=== PATIENT | male | born 1940 | race Caucasian/White ===

== ENCOUNTER → 2018-10-17 14:00 | Outpatient (CLI) | payer MEDICARE, SELFPAY ==
--- NOTE | 2018-10-17 14:03 | VDLE_ITS ---
Reason For Study: PAIN RIGHT LEFT CFV is compressible, spontaneous, phasic, CFV is compressible, spontaneous, phasic, competent and demonstrates normal competent, and demonstrates normal augmentation. augmentation. FV is compressible, spontaneous, phasic, FV is compressible, spontaneous, phasic, competent and demonstrates normal competent and demonstrates normal augmentation. augmentation. POP V is compressible, spontaneous, phasic, POP V is compressible, spontaneous, phasic, competent and demonstrates normal competent and demonstrates normal augmentation. augmentation. T/P Trunk is compressible. T/P Trunk is compressible. PTV is compressible. PTV is compressible. RT PerV is compressible. LT PerV is compressible. Rt GSV at SFJ is INCOMPETENT for greater Left GSV at SFJ is competent. than .5 sec. Left GSV above knee is compressible and RT GSV above knee is INCOMPETENT for greater competent. than .5 sec and measures .3 x .4 cm. Left GSV below knee is INCOMPETENT for greater RT Varicose V are INCOMPETENT for greater than .5 sec and measures .3 x .3 cm. than .5 sec. RT SSV is competent. RT GSV below knee has been stripped. RT Varicose/accessory V below the knee are RT SSV is INCOMPETENT for greater than .5 INCOMPETENT for greater than .5 sec. sec and measures .2 x .2 cm. RT Animal Daycare Provider located approx 10 cm from medial Procedure maleolus is INCOMPETENT for greater than .5 Exam performed in department. sec. Interpretation Summary 1. No DVT or SVT. 2, Right GSV 4mm and reflux into brnahces. 3. Right LSV 2mm reflux. 4. Left below knee GSV 3mm reflux into branches 5. Left calf steam room attendant reflux. Ordering Physician: Vadim Albright Referring Physician: JULIANA NORIEGA Performed By: Radha iPnk, RDCS, RVT
== END ==
PROVIDERS: Family Provider Internal Medicine; PCP Internal Medicine; Referring Provider Surgery Vascular Surgery; Visit Provider Surgery Vascular Surgery
DX: M79.89 Other specified soft tissue disorders (principal); M79.604 Pain in right leg; M79.605 Pain in left leg; L81.9 Disorder of pigmentation, unspecified; I83.93 Asymptomatic varicose veins of bilateral lower extremities; I87.2 Venous insufficiency (chronic) (peripheral)
CPT/HCPCS: 93970

== ENCOUNTER → 2018-10-31 14:52 | Outpatient (CLI) | payer MEDICARE, SELFPAY ==
[2018-10-22 11:38] VITALS: BMI 29.5
--- NOTE | 2018-10-31 14:57 | ECHOD_ITS ---
Reason For Study: AFIB.FLUTTER Procedure This was a 2D Doppler, Color Flow transthoracic echocardiogram. Exam performed in department. Left Ventricle Mildly dilated left ventricle. The estimated ejection fraction is 55 %. Stage 1 diastolic dysfunction. No regional wall motion abnormalities noted. Right Ventricle Normal size and thickness. Normal systolic function. Atria The left atrium is mildly enlarged. Normal right atrium. Normal atrial septum. Mitral Valve The mitral valve is structurally normal. No prolapse or stenosis seen. Mild (1+) mitral valve insufficiency. Tricuspid Valve Normal tricuspid valve. Trivial tricuspid valve insufficiency. Right ventricular systolic pressure estimated to be 41 mmHg. Mild pulmonary hypertension. Aortic Valve Trisinus/trileaflet aortic valve. Mild diffuse aortic valve thickening. Trivial aortic valve insufficiency. Pulmonic Valve Normal pulmonic valve. Trivial pulmonic valve insufficiency. Great Vessels Normal aortic root. Normal arch. Normal inferior vena cava. Inferior vena cava collapse with sniff. Pericardium/Pleural No pericardial effusion. MMode/2D Measurements & Calculations LVIDd: 5.7 cm IVSd: 1.0 cm Ao root diam: 3.5 cm LVIDs: 3.5 cm LVPWd: 0.96 cm RVDd: 3.4 cm FS: 38.4 % LAV(MOD-bp): 93.5 ml LA A4 area: 21.8 cm2 LA dimension(2D): 4.0 cm LAV(MOD-bp) Indexed: 39.7 ml/m2 LAV(MOD-sp2): 97.5 ml LAV(MOD-sp4): 72.6 ml RA A4 area: 19.8 cm2 Time Measurements MV dec time: 0.26 sec Doppler Measurements & Calculations MV E max sebastien: 84.4 cm/sec Lat Peak E' Sebastien: 8.3 cm/sec Med Peak E' Sebastien: 6.1 cm/sec MV A max sebastien: 98.7 cm/sec E/E' lat: 10.2 E/E' med: 13.8 MV E/A: 0.86 Ao V2 max: 127.8 cm/sec AI max sebastien: 382.4 cm/sec LV V1 max: 112.4 cm/sec Ao max P.5 mmHg AI max P.5 mmHg LV V1 max P.1 mmHg Ao V2 mean: 87.8 cm/sec AI dec slope: 141.3 cm/sec2 LV V1 mean P.5 mmHg Ao mean P.4 mmHg AI P1/2t: 792.4 msec LV V1 mean: 73.7 cm/sec Ao V2 VTI: 29.9 cm LV V1 VTI: 25.4 cm PA V2 max: 82.1 cm/sec TR max sebastien: 283.4 cm/sec TR max P.3 mmHg Interpretation Summary Mildly dilated left ventricle. The estimated ejection fraction is 55 %. Stage 1 diastolic dysfunction. The left atrium is mildly enlarged. Mild (1+) mitral valve insufficiency. Trivial tricuspid valve insufficiency. Right ventricular systolic pressure estimated to be 41 mmHg. Mild pulmonary hypertension. Trivial aortic valve insufficiency. Compared to echo report dated 01/12/2017, LV function is about the same, but RVSP has increased from 29 to 41 mm Hg,. Ordering Physician: Juan Chow Referring Physician: Oskar Leger Performed By: Trice Mckeon RDCS, RVT
== END ==
PROVIDERS: Family Provider Internal Medicine; PCP Internal Medicine; Referring Provider Internal Medicine Cardiovascular Disease; Visit Provider Internal Medicine Cardiovascular Disease
DX: I48.0 Paroxysmal atrial fibrillation (principal); R06.09 Other forms of dyspnea
CPT/HCPCS: 93306

== ENCOUNTER → 2018-11-07 10:23 | Outpatient (CLI) | payer MEDICARE, SELFPAY ==
[2018-10-22 11:38] VITALS: BMI 29.5
--- NOTE | 2018-11-07 10:25 | STEWCON_ITS ---
Reason For Study: DYSPNEA/SOB Stress Results Protocol: Chi Protocol WITH DEFINITY Maximum Predicted HR: 142 bpm Target HR: 121 bpm % Maximum Predicted HR: 108 % DurationHeart Rate Stage (mm:ss) (bpm) BP Comment Baseline 54 150/882.5 CC DEFINITY STAGE 1 3:00 118 170/62 STAGE 2 3:00 153 190/501.5 CC DEFINITY, SOB, KNEE DISCOMFORT, RECOVERY 83 142/741 CC DEFINITY Stress Duration: 6:00 mm:ss Maximum Stress HR: 153 bpm Baseline Echocardiogram Findings The estimated ejection fraction is 65 %. Stress Echo Wall motion Data Resting WM Intermediate WM Stress WM Resting Wall Motion Wall Motion Stress No regional wall motion Anterio-Basal: Mildly abnormalities noted. hypokinetic. Basal anteroseptal: Mildly hypokinetic. Mid-anteroseptal : Mildly hypokinetic. EKG Data The baseline ECG displays normal sinus rhythm. The patient exercised according to the regular Chi protocol for a total duration of 6:00. The maximum heart rate attained was 181 beats per minute. This was 127% of maximum predicted heart rate. The patient exercised into stage 3 of the Chi protocol. During stress, there were no ST or T wave changes noted to suggest ischemia. No clinical angina was noted. Interpretation Summary The estimated ejection fraction is 65 %. Abnormal, adequate, treadmill echocardiogram. Positive for ischemia by echocardiographic criteria. No anginal symptoms noted. Frequent PACs and rare PVCs during exercise. Appropriate blood pressure response to exercise. Average exercise capacity for age. Patient appeared to develop mid anteroseptal hypokinesis seen in the parasternal long and apical four-chamber views. Poor echo windows requiring Definity agent. Final LVEF of 55%. Test terminated due to dyspnea, target heart rate achieved, and leg discomfort. No complications. The study was technically difficult. Contrast injection was performed. Ordering Physician: Juan Chow Referring Physician: Juan Chow Performed By: Israel Rasmussen RCS
== END ==
PROVIDERS: Family Provider Internal Medicine; PCP Internal Medicine; Referring Provider Internal Medicine Cardiovascular Disease; Visit Provider Internal Medicine Cardiovascular Disease
DX: R06.09 Other forms of dyspnea (principal); R53.83 Other fatigue; I48.0 Paroxysmal atrial fibrillation
CPT/HCPCS: 93017; 93350; Q9957; A4216; C8928

== ENCOUNTER → 2018-11-12 | Outpatient (CLI) | payer MEDICARE, SELFPAY ==
[2018-10-22 11:38] VITALS: BMI 29.5
[2018-11-12 10:04] LABS: Hematocrit 40.6 % (40-54); Hemoglobin 13.3 g/dl (13.0-16.5); Mean Corp Hgb Conc 32.8 g/gl (32-36); Mean Corpuscular Hgb 30.5 pg (27.0-32.0); Mean Corpuscular Volume 93.1 fL (80-94); Mean Platelet Vol. 8.7 fl (6.2-12.0); Platelet Count 142 K/mm3 (150-450); RBC Distribution Width CV 12.8 % (11.6-14.6); RBC Distribution Width SD 43.4 fl (35.1-43.9); Red Blood Count 4.36 M/mm3 (4.6-6.2); White Blood Count 6.5 K/mm3 (4.4-11.0)
[2018-11-12 10:08] LABS: Scan Indicated on CBC? Y/N NO
[2018-11-12 10:10] LABS: Partial Thromboplast Time 34.5 Seconds (24.1-36.2); Prothrombin Time (Protime)PT. 22.2 SECONDS (11.7-14.9)
[2018-11-12 10:27] LABS: Anion Gap 7 (5-15); BUN 23 mg/dL (7-18); BUN/Creat Ratio 14.2 RATIO (10-20); Calcium,Total 9.1 mg/dL (8.5-10.1); Chloride 104 mmol/L (98-107); Creatinine, Serum 1.62 mg/dL (0.70-1.30); EST Glomerular Filtration Rate 44 mL/min (>60); Est Glom Filt Rate - Afr Amer 53 mL/min (>60); Glucose 105 mg/dL (74-106); Potassium 5.2 mmol/L (3.5-5.1); Sodium Level 143 mmol/L (136-145)
== END | disposition home or self-care (01) ==
LOC: LAB 09:23
PROVIDERS: Family Provider Internal Medicine; PCP Internal Medicine; Referring Provider Internal Medicine Cardiovascular Disease; Visit Provider Internal Medicine Cardiovascular Disease
DX: I48.0 Paroxysmal atrial fibrillation (principal); I34.0 Nonrheumatic mitral (valve) insufficiency; R94.39 Abnormal result of other cardiovascular function study; Z79.01 Long term (current) use of anticoagulants
CPT/HCPCS: 36415; 80048; 85027; 85610; 85730

== ENCOUNTER 2018-11-14 07:08 | Day surgery (SDC) | payer MEDICARE, SELFPAY ==
[2018-10-22 11:38] VITALS: BMI 29.5
--- NOTE | 2018-10-22 11:52 | HP_ITS ---
HPI HPI History of Present Illness Surgical H&P: No Details: Chief Complaint: Routine f/u Details: Mr. Leung is a very pleasant 77-year-old nondiabetic hypertensive gentleman with a history of paroxysmal atrial fibrillation was previously on Coumadin therapy until around January of 2011 when he suffered a subdural hematoma after falling off a ladder and hitting his head. The patient went to [facility] remained for several days but did not require evacuation surgery. He remained off Coumadin up until around one year ago when his primary clerical grader Dr. Gorman resumed it out of concern for his chads/vasc score. He has remained on Coumadin without any difficulty. His last stress test was 04/08/13 at which time he had a near maximal stress test, had no chest pain symptoms, and his nuclear imaging was felt to be negative for inducible ischemia. He has never had a catheterization. The patient is a lifelong nonsmoker and nondrinker, and denies any exertional chest pain, angina, shortness of breath. He does have obstructive sleep apnea and uses his CPAP religiously. 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 Patient had a venous ultrasound last week, and is going to follow-up with Dr. Albright. Patient recently returned from [place], and did well down there, but since coming back is apparently had an upper respiratory tract infection requiring visit to an urgent clinic recently. According to his he has had decreased energy level over the last 2 weeks, and even preceding his upper respiratory tract infection. She states that he is sleeping several times during the day and has much lower energy since her last visit. In our office today his blood pressure is 130/66, and pulse is 58 and regular. His physical exam demonstrates regular rate and rhythm, normal S1/S2, no S3 or S4. He has no edema. His lipids are pending. EKG dated 11/19/16 showed normal PACs, no evidence of previous myocardial infarction. Echocardiogram dated 04/11/12 showed an EF of 60%, and RVSP of 39 mmHg, 1+ MR and TR. Repeat echo dated 01/12/17 showed an EF of 65%, RVSP of 29 mmHg, and 1+ mitral regurgitation. Repeat lipids are pending. EKG on a previous visit demonstrates normal sinus rhythm with frequent PACs, no atrial fibrillation noted. Intake Vital Signs 10/22/18 Height 6 ft 3 in 10/22/18 Weight: 236 lb 10/22/18 Body Mass Index (BMI) 29.5 10/22/18 Blood Pressure 130/70 H 10/22/18 Blood Pressure Location Lt brachial 10/22/18 Blood Pressure Position Sitting 10/22/18 Respiratory Rate 20 H 10/22/18 Pulse Rate 60 10/22/18 Pulse Source Auscultation Intake Visit Reasons: 7 M Activated Sludge Attendant Required: No Accompanied by: Is patient in pain?: No Allergies levofloxacin [From Levaquin] Allergy (Verified 10/22/18 11:39) Rash midazolam [From Versed] Allergy (Verified 10/22/18 11:39) Other Penicillins Allergy (Verified 10/22/18 11:39) Unknown iopromide [From Ultravist] Adverse Reaction (Verified 10/22/18 11:39) Unknown Medications multivitamin tablet 1 tab PO QDAY 10/20/17 [History Confirmed 10/22/18] atenolol 25 mg tablet 25 mg PO DAILY #90 tab 07/26/18 [Rx Confirmed 10/22/18] warfarin 2 mg tablet 2 mg PO .COMPLEX #90 tab 10/22/18 [Rx Confirmed 10/22/18] warfarin 4 mg tablet 4 mg PO .COMPLEX #90 tab 10/22/18 [Rx Confirmed 10/22/18] [facility] Medical History SVT (supraventricular tachycardia) (Chronic) Nonrheumatic mitral valve regurgitation (Chronic) long-term current use of anticoagulant (Chronic) PAF (paroxysmal atrial fibrillation) (Chronic) Overweight (BMI 25.0-29.9) (Chronic) YAJAIRA (obstructive sleep apnea) (Chronic) Adrenal adenoma (Chronic) BPH (benign prostatic hyperplasia) (Chronic) Benign neoplasm (Chronic) Diverticulitis (Chronic) History of subdural hematoma (Chronic) Nontoxic uninodular goiter (Chronic) Thrombocytopenia (Chronic) 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 CXR=no pneumonia); negative for body ache, fever(s), headache(s), chills, frequent falls, night sweats, daytime sleepiness, difficulty sleeping, excessive sweating, weight gain, weight loss, increased appetite, poor appetite or anorexia Eyes Eyes: Negative for blind spots, loss of peripheral vision, transient loss of vision, blurry vision, change in vision, double vision, floaters, tunnel vision or other ENT ENT: Negative for headache(s), dizziness, hearing loss, tinnitus, Nosebleed/epistaxis, balance problems, post nasal drip, lip swelling, tongue swelling, bleeding gums, hoarseness, neck pain, dry mouth or other Cardio Chest Pain: No Palpitations: No Edema: Bilateral (chronic, wears support stockings. Sees Dr. Albright, venous insufficiency) Muscle aches with walking: None Resp Respiratory: Negative for SOB with activity, SOB at rest, SOB orthopnea\SOB lying down, Cough, Coughing up blood/hemoptysis, chest congestion, pain on inspiration, snoring, stridor, wheezing, crackles, paroxysmal nocturnal dyspnea or other GI GI: Negative nausea, vomiting, heartburn, constipation, belching, bloating, cramping, vomiting blood/hematemesis, bright, red blood in stools, black,tarry stools, loose stools, Difficulty Swallowing or other : Negative for hematuria, frequent nighttime urination/ nocturia, erectile dysfunction or abnormal vaginal bleeding Musc Musc: Negative for muscle aches/ myalgia, muscle weakness, joint pain or balance problems Skin Skin: Negative redness, non-healing lesions, rash, unusual bruising, skin ulcer, wounds, jaundice or other Neuro Neuro: Positive for weakness; negative for dizziness, lightheadedness, near syncope, syncope, orthostatic symptoms, frequent falls, headache(s), confusion, memory loss, restless legs, blurry vision, double vision, vertigo, seizures, lack of coordination or other Sanjay Hematologic/Lymphatic: Negative for easy bleeding, easy bruising, enlarged lymph nodes or other Endo Endo: Positive for fatigue; negative for cold intolerance, heat intolerance, excessive sweating, flushing, increased thirst/drinking, increased hunger, hair loss, hair growth or other Psych Psych: Negative for anxiety, depression, thoughts of harming anyone, thoughts of harming yourself, visual hallucinations, panic attacks or audible hallucinations Allergy Allergy/Immunology: Negative for throat swelling, Negative for tongue swelling, Negative for hives, Negative for rash, Negative for lip swelling Cardiology Exam Const Appearance: cooperative, healthy appearing and no acute distress Nutritional Appearance: well nourished Orientation: alert, oriented x3 and oriented to person Head Head: normal to inspection, normocephalic and atraumatic Nose: external nose normal Face and Sinus: face symmetric Mouth: oral mucosae normal Eyes General: appearance normal, both eyes and all related structures Eyelids: eyelids normal Conjunctivae: conjunctivae normal Pupils: PERRL and normal by confrontation EOM: EOM intact bilaterally Neck Neck: normal visual inspection and full ROM Carotids: normal carotid upstroke Chest Chest inspection: normal inspection of the chest Auscultation: Bilateral: Clear to Auscultation Cardio Palpation: normal PMI Rate: regular rate Rhythm: regular rhythm Heart sounds: S1 normal and S2 normal GI GI: normal to inspection, no hepatosplenomegaly and bowel sounds present Neuro General: alert, awake, oriented x3, CN's II-XI intact bilaterally and moves all extremities Skin Skin: no rashes or lesions noted Extremities Pulses: Normal: Right Femoral Pulse, Left Femoral Pulse, Right Dorsalis Pedis Pulse, Left Dorsalis Pedis Pulse, Right Posterior Tibial Pulse, Left Posterior Tibial Pulse, Right Radial Pulse, Left Radial Pulse Lower Extremity Edema: None: Bilateral Psych Psychological: normal affect Assessment & Plan 1. PAF (paroxysmal atrial fibrillation) I48.0 Plan 1. Paroxysmal atrial fibrillation: Patient denies any paroxysmal atrial fibrillation and is aware of when he is in and out of it. He is compliant with his medications as well as his Coumadin. Is compliant with his CPAP as well. Recommend he continue his atenolol and his Coumadin. 2. Fatigue R53.83 Plan 2. Fatigue: According to the patient's he has had decreased energy level, increasing fatigue, and increasing shortness of breath over the last several weeks. As part of his cardiac surveillance, as well as in light of the symptoms, I recommended he undergo a repeat 2D echo with Doppler to determine if he is at any worsening LV function, or pulmonary pressures as a result of his sleep apnea. In addition I recommended he undergo a treadmill echocardiogram to compare previous stress test for exercise capacity, blood pressure response exercise, and ischemia. If either 1 of these are grossly abnormal, may require a diagnostic coronary angiogram. 3. Return office in 6 months. This note was generated using a voice recognition system and there may be incorrect words, spelling or punctuation that were not noted when reviewing the office note prior to saving. Plan Detail Other Medications New: warfarin 2 mg PO daily except on Monday take a 4 mg tablet; 90 tabs 3RF Changed: From: warfarin 4 mg PO 1 tablet on Saturdays; take 0.5 tablet (2mg) all other days of the week. 90 tabs 3RF To: warfarin 4 mg PO 1 tablet on Saturdays; take a 2 mg tablet all other days of the week. 90 tabs 3RF Follow Up +6M (Geraldo) Coding Level of Care Code Off vis,est,level 3 Diagnoses PAF (paroxysmal atrial fibrillation) I48.0 Fatigue R53.83 Coding Level of Care Code Off vis,est,level 3 Diagnoses PAF (paroxysmal atrial fibrillation) I48.0 Fatigue R53.83 Supplemental Info Supplemental Information Diagnostics Electrocardiogram 10/23/17 Chest X-Ray 11/19/16 10/22/18 0792 <Electronically signed by Juan Chow MD> Date Juan Chow MD
[2018-11-12 10:24] VITALS: BMI 29.5
[2018-11-13 10:01] VITALS: BMI 29.5
[2018-11-14 07:21] LABS: Prothrombin Time Fingerstick 15.5 SEC (11.9-14.4)
--- NOTE | 2018-11-14 10:57 | CL.D_ITS ---
Patient Name: RJ REYNOLDS Study Date: 11/14/2018 Performing: Juan Chow MD Ht: 75.19 inches 191 cm : 1940 Wt: 235.89 lbs 107 kg Age: 78 Gender: male BSA: 2.36 PROCEDURE(S) PERFORMED [id number]-IPV/COR/LV CLINICAL PROFILE AND INDICATIONS Indications: Suspected CAD Heart Failure: None Stress/Imaging Date: 11/07/2018Stress Echocardiogram: Positive Low Risk Angina Classification Anginal Classification w/in 2 Weeks: No symptoms CAD Presentations: Other: Dyspnea on exertion, HTN Comorbidities/Risk Factors: Hypertension Dyslipidemia Cerebrovascular Disease CONCLUSIONS Normal coronary arteries Normal LV size, wall motion,and systolic function LVEF: by LV gram 65 % Normal LV size, wall motion,and systolic function Elevated Left Ventricular End Diastolic Pressure RECOMMENDATIONS D/c plavix and aspirin; start imdur 30mg po daily. Management as per referring Community Development Coordinator DESCRIPTION OF PROCEDURE The patient arrived to the procedure lab. The risks and benefits of the procedure as well as a full d escription of our services here and current unavailability of surgical backup were fully explained to the patient and/or their significant other prior to the catheterization. The Timeout was completed, verifying the correct patient and procedure. The patient's procedural site was prepped and draped in the usual fashion. Local anesthetic was given subcutaneously to right groin region with Lidocaine 2%. Using a modified Seldinger technique, arterial access was obtained via the right femoral artery, a 4 Fr sheath was inserted Left Coronary Artery selective angiography was performed in multiple views us ing a 4 Fr. JL5 catheter. Right Coronary Artery selective angiography was then performed in multiple views using a 4 Fr. 3DRC catheter. Left Ventriculography was performed in COLE projection using a 4 Fr . Pigtail catheter. LV to AO pullback pressures were then recorded.The arterial sheath was pulled and manual compression applied until hemostasis is achieved. CORONARY ANGIOGRAPHY DOMINANCE: Right Dominant LEFT HEART ASSESSMENT Left Ventricular Ejection Fraction: by LV Gram 65 % Normal LV wall motion Normal Left Ventricular systolic function Normal Left Ventricular systolic function Elevated Left Ventricular End Diastolic Pressure LEFT MAIN: Angiographically normal, Angiographically normal LEFT ANTERIOR DESCENDING ARTERY: Angiographically normal, Angiographically normal CIRCUMFLEX ARTERY: Angiographically normal, Angiographically normal RIGHT CORONARY ARTERY: Angiographically normal Angiographically normal COMPLICATIONS No Complications PROCEDURE MEDICATIONS Fentanyl 25 mcg IV Oxygen: 2 L/min via nasal cannula Benadryl 25 mg IV @ 11/14/2018 10:24:12 Nitro 300 mcg IC 11/14/2018 10:43:50 Nitro Paste 1 in- Lt arm 11/14/2018 10:47:11 Solu-cortef 100 mg IV 11/14/2018 10:23:58 IV Fluids: .9 NaCl IV started @ 150 ml/hr 11/14/2018 07:38:18 SUMMARY OF HEMODYNAMIC DATA Time AIR REST ECG 07:30:28 AO 159/80 (115) SA 10:37:51 LV 189/-17, 18 10:43:06 LV 183/-20, 23 10:43:12 LVp 182/-19, 21 10:43:19 AOp 180/74 (118) 10:43:24 Signed By Juan Chow MD On 11/14/2018 10:56:40 Juan Chow MD
== END 2018-11-14 15:15 | disposition home or self-care (01) ==
LOC: CLSP 07:10
PROVIDERS: Family Provider Internal Medicine; PCP Internal Medicine; Referring Provider Internal Medicine Cardiovascular Disease; Visit Provider Internal Medicine Cardiovascular Disease
DX: I48.0 Paroxysmal atrial fibrillation (principal); R53.83 Other fatigue; E78.5 Hyperlipidemia, unspecified; I10 Essential (primary) hypertension; G47.33 Obstructive sleep apnea (adult) (pediatric); Z79.01 Long term (current) use of anticoagulants; Z88.0 Allergy status to penicillin; Z88.1 Allergy status to other antibiotic agents; I47.1 Supraventricular tachycardia; N40.0 Benign prostatic hyperplasia without lower urinary tract symptoms; D69.6 Thrombocytopenia, unspecified; I83.93 Asymptomatic varicose veins of bilateral lower extremities; I34.0 Nonrheumatic mitral (valve) insufficiency
CPT/HCPCS: 36416; 85610; 93458; 99152; J7040; Q9967; C1769; C1894

== ENCOUNTER → 2019-03-04 11:13 | Outpatient (CLI) | payer MEDICARE, SELFPAY ==
[2019-02-01 14:38] VITALS: BMI 29.5
--- NOTE | 2019-03-04 11:18 | US_ITS ---
STUDY: RENAL ULTRASOUND - COMPLETE REASON FOR EXAM: Male, 78 years old. Stage III chronic kidney disease TECHNIQUE: Ultrasound evaluation of the kidneys was performed with real-time and static mina-scale imaging. COMPARISON: None. FINDINGS: RIGHT KIDNEY: Normal location of the right kidney, which is normal in size. The right kidney measures 10.5 x 4.6 x 5.1 cm. There is a normal cortex of the right kidney. The renal cortex measures 1.0 cm. There is no right renal mass or cyst. There are no right renal calculi. There is no right hydronephrosis. DISTAL RIGHT URETER: There is non-visualization of the distal right ureter. There is no demonstrated right ureterovesical junction calculus. There is no demonstrated right ureteral jet. LEFT KIDNEY: Normal location of the left kidney, which is normal in size. The left kidney measures 9.9 x 5.5 x 4.7 cm. There is a normal cortex of the left kidney. The renal cortex measures 1.1 cm. There is no left renal mass or cyst. There are no left renal calculi. There is no left hydronephrosis. DISTAL LEFT URETER: There is non-visualization of the distal left ureter. There is no demonstrated left ureterovesical junction calculus. There is no demonstrated left ureteral jet. BLADDER: The distended urinary bladder has a volume of 75 ml. . There is a normal wall thickness of the distended urinary bladder. Bladder wall thickness is 6 mm. There is no demonstrated mass within the urinary bladder. There are no demonstrated bladder calculi. US/Kidney and Bladder IMPRESSION: Normal ultrasound of the kidneys and urinary bladder. Electronically Signed: Chin Brito MD at 17:46 EDT , Service support ,
== END ==
PROVIDERS: Family Provider Internal Medicine; PCP Internal Medicine; Referring Provider Internal Medicine Nephrology; Visit Provider Internal Medicine Nephrology
DX: N18.3 Chronic kidney disease, stage 3 (moderate) (principal)
CPT/HCPCS: 76770

== ENCOUNTER 2019-12-08 17:05 | Emergency (ER) | payer MEDICARE, SELFPAY ==
[2019-04-15 09:35] VITALS: BMI 29.2
[2019-12-08 17:07] VITALS: BP 138/112; PULSE 68; RESP 16; TEMP 36.9; O2SAT 95
--- NOTE | 2019-12-08 17:14 | EKG12_ITS ---
Test Reason : PALPS Blood Pressure : / mmHG Vent. Rate : 109 BPM Atrial Rate : 104 BPM P-R Int : 000 ms QRS Dur : 080 ms QT Int : 278 ms P-R-T Axes : 000 030 059 degrees QTc Int : 374 ms Atrial fibrillation with rapid ventricular response with premature ventricular or aberrantly conducte d complexes Nonspecific ST abnormality Abnormal ECG Confirmed by NBA MONTALVO ([id number]), news assignment editor VIK BEAL ([id number]) on 12/12/2019 1:30:03 PM Referred By: MADHAVI Confirmed By:NBA MONTALVO
[2019-12-08 17:23] VITALS: BP 162/90; PULSE 103; RESP 17
--- NOTE | 2019-12-08 17:23 | ED.VIS.GEN ---
History of Present Illness Chief Complaint: Palpitations Detail of Chief Complaint: Irregular heartbeat Informant: Patient, Family Onset: Hours - 1600 Context: Sudden Onset Timing: Continuous Quality: Complications irregular heartbeat Location: Chest Current Severity: Mild Maximum Severity: Mild Worsened by: Nothing Relieved by: Nothing Associated Symptoms: No other symptoms Narrative: Patient is 79-year-old male with history of atrial fibrillation on Coumadin. He is on Coumadin because he had a traumatic subdural hematoma. This occurred 2010. He reports leg swelling that is a chronic issue since 1969. He wears compressive stocking/hose. He denies chest pain. He denies dyspnea or dyspnea on exertion. He denies orthopnea PND. He denies black or maroon-colored stool. He has no other complaints. His gave him an additional half tablet of atenolol. He has not eaten in the last several hours. States he is never been cardioverted. 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 (2) Nonrheumatic mitral valve regurgitation Status: Chronic (3) YAJAIRA (obstructive sleep apnea) Status: Chronic (4) PAF (paroxysmal atrial fibrillation) Status: Chronic (5) SVT (supraventricular tachycardia) Status: Chronic Past Medical History - Allergies and Home Meds Allergies/Adverse Reactions: Allergies Iodinated Contrast Media [Iodinated Contrast- Oral and IV Dye] Allergy (Intermediate, Verified 12/08/19 17:07) states had a cough with Iopromide ( Isovue/cath dye) levofloxacin [From Levaquin] Allergy (Verified 12/08/19 17:07) Rash midazolam [From Versed] Allergy (Verified 12/08/19 17:07) Other Penicillins Allergy (Verified 12/08/19 17:07) Unknown Primary Care Physician: Oskar Leger MD [Primary Care Provider] - Prior records reviewed: Yes Surgical History: tonsillectomy, - - RLE vein stripping. Lives: Spouse/ Significant Other Smoking Status: Never smoker Alcohol: None Drugs: None - Family History Maternal Family History: Family History (Last Reviewed 04/15/19 @ 10:10 by PHUONG Jeter) Father Hypertension Cardiomyopathy Family History: Reports: - - Thyroid disease (goiter) Paternal Family History: Family History (Last Reviewed 04/15/19 @ 10:10 by PHUONG Jeter) Father Hypertension Cardiomyopathy Family History: Reports: Heart Disease, Hypertension Review of Systems General: Denies: Chills, Fever, Sweats Eyes: Denies: Visual changes - bilaterally, Blurred Vision - bilaterally ENT: Denies: Rhinorrhea, Sore throat Cardiovascular: Reports: Palpitations. Denies: Chest pain, Heart racing, -, - Respiratory: Denies: Dyspnea, Cough, Sputum, Dyspnea on exertion, Orthopnea, Paroxysmal nocturnal dyspnea, -, - Gastrointestinal: Denies: Abdominal pain, Nausea, Vomiting, Diarrhea, Melena, Hematochezia Musculoskeletal: Reports: Swelling. Denies: Myalgias, Arthralgias, Neck pain, Back pain, Extremity Pain, -, - Skin: Denies: Rash, Wounds Neurological: Denies: Headache, Weakness, Parasthesia Hematologic: Reports: Easy bruising. Denies: Easy bleeding Allergy: Denies: Uticaria Physical Exam Vital Signs/Narrative: Vital Signs Temp Pulse Resp BP Pulse Ox 12/08/19 17:07 98.5 F 68 16 138/112 H 95 Inital Vital Signs reviewed: Yes General: Well nourished, Well developed, No Acute Distress Head: Normocephalic, Atraumatic Eyes: Perrl, EOMI. Negative for: Pale conjunctiva, Scleral icterus ENT: Moist mucous membranes, No rhinorrhea Neck: Supple, Nontender, No lymphadenopathy, No JVD Cardiovascular: Irregular, Tachycardia, Murmur Back: Nontender, Normal Inspection Extremities: Nontender, Edema Skin: Normal color, No rash Neurological: Alert, Oriented x3, Cranial nerves II-XII grossly intact, Normal Strength, Normal Sensation Psychological: Normal affect, Normal Mood Diagnostic/Tx/Re-eval Laboratory Results 12/08/19 12/08/19 12/08/19 17:25 17:25 17:25 WBC 6.9 RBC 3.98 L Hgb 12.4 L Hct 38.3 L MCV 96.2 H MCH 31.2 MCHC 32.4 RDW Std Deviation 45.5 H RDW Coeff of Jan 12.9 Plt Count 146 L MPV 8.6 PT 28.3 H INR 2.7 Sodium 141 Potassium 4.8 Chloride 108 H Carbon Dioxide 28.0 Anion Gap 5 BUN 29 H Creatinine 1.96 H Estim Creat Clear Calc 35.53 Est GFR (MDRD) Af Amer 43 L Est GFR (MDRD) Non-Af 35 L BUN/Creatinine Ratio 14.8 Glucose 111 H Calcium 8.8 Work-up is unremarkable other than elevated creatinine of 1.96. November 12, 2018 creatinine is 1.62. INR is 2.7. Patient was reassessed. Heart rate is varied between 89-95. He is still in A. fib. Since he is never been cardioverted in the past and is converted on his own will discharge to home to follow-up with Dr. 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 - Rhythm Strip Rhythm Strip: A-fib Rate: 118 - EKG Initial EKG Interpretation: Atrial Fibrillation - Fibrillation with a ventricular rate of 109. QRS duration 80 ms. QT duration 278 ms. [place] is normal. There is no acute ischemic changes. There is nonspecific ST-T wave changes noted. Last EKG on record at [facility] revealed a sinus tachycardia with a rate of 106, November 19, 2016. - Medical Decision Making was obtained to rule out a cardiac ischemia. CBC to assess H&H. Basic metabolic panel to assess electrolytes and specifically potassium and sodium. PT/INR was obtained since patient is on Coumadin. Since give him additional dose of beta-russell will observe. ED Disposition - Plan for ED Patient: Disposition: Home or Assisted Living Diagnosis: Atrial fibrillation with RVR Instructions: ED AFIB Referrals: Oskar Leger MD [Primary Care Provider] - Juan Chow MD [STAFF PHYSICIAN] - 5-7 Days
[2019-12-08 17:31] LABS: Hematocrit 38.3 % (40-54); Hemoglobin 12.4 g/dL (13.0-16.5); Mean Corp Hgb Conc 32.4 g/dL (32-36); Mean Corpuscular Hgb 31.2 pg (27.0-32.0); Mean Corpuscular Volume 96.2 fL (80-94); Mean Platelet Vol. 8.6 fl (6.2-12.0); Platelet Count 146 K/mm3 (150-450); RBC Distribution Width CV 12.9 % (11.6-14.6); RBC Distribution Width SD 45.5 fl (35.1-43.9); Red Blood Count 3.98 M/mm3 (4.6-6.2); White Blood Count 6.9 K/mm3 (4.4-11.0)
[2019-12-08 17:38] LABS: International Normalized Ratio 2.7; Prothrombin Time (Protime)PT. 28.3 SECONDS (11.7-14.9)
[2019-12-08 17:42] LABS: Anion Gap 5 (5-15); BUN 29 mg/dL (7-18); BUN/Creat Ratio 14.8 RATIO (10-20); Calcium,Total 8.8 mg/dL (8.5-10.1); Chloride 108 mmol/L (98-107); Creatinine, Serum 1.96 mg/dL (0.70-1.30); EST Glomerular Filtration Rate 35 mL/min (>60); Est Glom Filt Rate - Afr Amer 43 mL/min (>60); Estimated Creatinine Clearance 35.53 ml/min; Glucose 111 mg/dL (74-106); Potassium 4.8 mmol/L (3.5-5.1); Sodium Level 141 mmol/L (136-145)
[2019-12-08 18:25] VITALS: BP 157/83; PULSE 63; RESP 18; O2SAT 96
== END 2019-12-08 18:28 | disposition home or self-care (01) ==
PROVIDERS: Emergency Provider Emergency Medicine; PCP Internal Medicine
DX: I48.0 Paroxysmal atrial fibrillation (principal); Z79.01 Long term (current) use of anticoagulants
CPT/HCPCS: 80048; 85027; 85610; 93005; 99285

== ENCOUNTER → 2019-12-31 14:49 | Outpatient (CLI) | payer MEDICARE, SELFPAY ==
[2019-12-17 11:22] VITALS: BMI 28.5
--- NOTE | 2019-12-31 14:49 | ECHOD_ITS ---
Reason For Study: Afib Procedure This was a 2D Doppler, Color Flow transthoracic echocardiogram. Exam performed in department. Left Ventricle Mildly dilated left ventricle. The estimated ejection fraction is 65 %. Stage 1 diastolic dysfunction. No regional wall motion abnormalities noted. Right Ventricle Mildly dilated right ventricle. Normal systolic function. Atria The left atrium is mildly enlarged. Normal right atrium. Normal atrial septum. Mitral Valve The mitral valve is structurally normal. No prolapse or stenosis seen. Mild (1+) mitral valve insufficiency. Tricuspid Valve Normal tricuspid valve. Trivial tricuspid valve insufficiency. Right ventricular systolic pressure estimated to be 31 mmHg. Aortic Valve Trisinus/trileaflet aortic valve. Trivial aortic valve insufficiency. Pulmonic Valve The pulmonic valve is not well visualized. Great Vessels Normal aortic root. Mild atherosclerosis of the aortic arch. Normal inferior vena cava. Inferior vena cava collapse with sniff. Pericardium/Pleural No pericardial effusion. MMode/2D Measurements & Calculations LVIDd: 5.2 cm IVSd: 1.1 cm Ao root diam: 3.7 cm LVIDs: 3.7 cm LVPWd: 1.1 cm LA dimension: 4.9 cm RVDd: 3.8 cm FS: 29.4 % LAV(MOD-bp): 73.2 ml LA A4 area: 26.1 cm2 RA A4 area: 18.8 cm2 LAV(MOD-bp) Indexed: 31.8 ml/m2 LAV(MOD-sp2): 60.9 ml LAV(MOD-sp4): 89.8 ml Time Measurements MV dec time: 0.26 sec Doppler Measurements & Calculations MV E max sebastien: 98.7 cm/sec Lat Peak E' Sebastien: 8.8 cm/sec Med Peak E' Sebastien: 6.3 cm/sec MV A max sebastien: 108.9 cm/sec E/E' lat: 11.2 E/E' med: 15.8 MV E/A: 0.91 MV V2 max: 105.7 cm/sec MV P1/2t max sebastien: 96.5 cm/sec Ao V2 max: 172.9 cm/sec MV max P.5 mmHg MV P1/2t: 100.8 msec Ao max P.0 mmHg MV V2 mean: 47.5 cm/sec MV dec slope: 280.5 cm/sec2 Ao V2 mean: 118.9 cm/sec MV mean P.2 mmHg MVA(P1/2t): 2.2 cm2 Ao mean P.3 mmHg MV V2 VTI: 42.4 cm Ao V2 VTI: 38.8 cm AI max sebastien: 390.3 cm/sec LV V1 max: 153.1 cm/sec PA V2 max: 83.8 cm/sec AI max P.9 mmHg LV V1 max P.4 mmHg LV V1 mean P.4 mmHg AI dec slope: 228.4 cm/sec2 LV V1 mean: 97.2 cm/sec AI P1/2t: 500.6 msec LV V1 VTI: 33.3 cm TR max sebastien: 253.3 cm/sec TR max P.7 mmHg Interpretation Summary Mildly dilated left ventricle. The estimated ejection fraction is 65 %. Stage 1 diastolic dysfunction. Mildly dilated right ventricle. The left atrium is mildly enlarged. Mild (1+) mitral valve insufficiency. Trivial tricuspid valve insufficiency. Right ventricular systolic pressure estimated to be 31 mmHg. Trivial aortic valve insufficiency. Compared to echo report dated 10/31/2018, LV function has remained the same, and RVSP has improved from 41 to 31 mm Hg. Ordering Physician: Juan Chow Referring Physician: Juan Chow Performed By: Israel Rasmussen RCS
== END ==
PROVIDERS: PCP Internal Medicine; Referring Provider Internal Medicine Cardiovascular Disease; Visit Provider Internal Medicine Cardiovascular Disease
DX: R94.31 Abnormal electrocardiogram [ECG] [EKG] (principal); I48.91 Unspecified atrial fibrillation; I48.92 Unspecified atrial flutter; Z98.890 Other specified postprocedural states
CPT/HCPCS: 93306

== ENCOUNTER → 2022-11-15 | Outpatient (CLI) | payer MEDICARE, SELFPAY ==
[2022-11-15 11:02] LABS: Albumin, Serum 3.4 g/dL (3.2-5.0); BUN 31 mg/dL (7-18); BUN/Creat Ratio 14.6 RATIO (10-20); Calcium,Total 9.1 mg/dL (8.5-10.1); Chloride 110 mmol/L (98-107); Creatinine, Serum 2.12 mg/dL (0.70-1.30); EST Glomerular Filtration Rate 32 mL/min (>60); Est Glom Filt Rate - Afr Amer 39 mL/min (>60); Glucose 106 mg/dL (74-106); Phosphorus 2.4 mg/dL (2.5-4.9); Potassium 4.3 mmol/L (3.5-5.1); Sodium Level 140 mmol/L (136-145)
== END | disposition home or self-care (01) ==
LOC: LAB 10:09
PROVIDERS: PCP Internal Medicine; Referring Provider Internal Medicine Nephrology; Visit Provider Internal Medicine Nephrology
DX: N17.9 Acute kidney failure, unspecified (principal); N18.9 Chronic kidney disease, unspecified
CPT/HCPCS: 36415; 80069

== ENCOUNTER → 2023-12-21 | Outpatient (CLI) | payer MEDICARE, SELFPAY ==
[2023-12-21 12:27] LABS: Hematocrit 36.6 % (40-54); Hemoglobin 11.7 g/dL (13.0-16.5)
[2023-12-21 12:55] LABS: PTHIN 92.9 pg/mL (18.4-80.1)
[2023-12-21 13:12] LABS: Albumin, Serum 3.7 g/dL (3.2-5.0); BUN 32 mg/dL (7-18); BUN/Creat Ratio 16.5 RATIO (10-20); Calcium,Total 9.1 mg/dL (8.5-10.1); Chloride 107 mmol/L (98-107); Creatinine, Serum 1.94 mg/dL (0.70-1.30); EST Glomerular Filtration Rate 35 mL/min (>60); Est Glom Filt Rate - Afr Amer 43 mL/min (>60); Glucose 93 mg/dL (74-106); Phosphorus 3.4 mg/dL (2.5-4.9); Potassium 4.8 mmol/L (3.5-5.1); Sodium Level 141 mmol/L (136-145)
== END | disposition home or self-care (01) ==
PROVIDERS: PCP Internal Medicine; Referring Provider Internal Medicine Nephrology; Visit Provider Internal Medicine Nephrology
DX: N18.32 Chronic kidney disease, stage 3b (principal)
CPT/HCPCS: 36415; 80069; 83970; 85014; 85018

== ENCOUNTER → 2024-11-06 | Outpatient (CLI) | payer MEDICARE, SELFPAY ==
[2024-11-06 12:50] LABS: Hematocrit 34.8 % (40-54); Hemoglobin 10.9 g/dL (13.0-16.5); Mean Corp Hgb Conc 31.3 g/dL (32-36); Mean Corpuscular Hgb 29.9 pg (27.0-32.0); Mean Corpuscular Volume 95.3 fL (80-94); Mean Platelet Vol. 9.1 fl (6.2-12.0); Platelet Count 189 K/mm3 (150-450); RBC Distribution Width CV 12.9 % (11.6-14.6); RBC Distribution Width SD 44.7 fl (35.1-43.9); Red Blood Count 3.65 M/mm3 (4.6-6.2); White Blood Count 5.3 K/mm3 (4.4-11.0)
[2024-11-06 13:27] LABS: Albumin, Serum 4.2 g/dL (3.4-4.8); Anion Gap 11 (5-15); BUN 28 mg/dL (4-19); Calcium,Total 9.2 mg/dL (7.6-11.0); Carbon Dioxide 24.1 mmol/L (21.0-32.0); Chloride 105 mmol/L (98-108); Creatinine, Serum 1.89 mg/dL (0.70-1.20); EST Glomerular Filtration Rate 35 (>60); Glucose 86 mg/dL (70-99); Phosphorus 3.3 mg/dL (2.7-4.5); Potassium 4.4 mmol/L (3.3-5.1); Sodium Level 140 mmol/L (133-145)
[2024-11-06 13:30] LABS: PTHIN 78 pg/mL (11-61)
== END | disposition home or self-care (01) ==
LOC: LAB 11:45
PROVIDERS: PCP Internal Medicine; Referring Provider Internal Medicine Nephrology; Visit Provider Internal Medicine Nephrology
DX: N18.32 Chronic kidney disease, stage 3b (principal)
CPT/HCPCS: 36415; 80069; 83970; 85027

== ENCOUNTER 2024-12-02 09:13 | Emergency (ER) | payer MEDICARE, SELFPAY ==
[2024-12-02 09:14] VITALS: BP 131/73; PULSE 92; RESP 18; TEMP 35.8; O2SAT 95; BMI 27.4
[2024-12-02 09:15] VITALS: BP 131/73; PULSE 92; RESP 18; TEMP 35.8; O2SAT 95
--- NOTE | 2024-12-02 10:15 | EKG12_ITS ---
Test Reason : sob Blood Pressure : */* mmHG Vent. Rate : 91 BPM Atrial Rate : 91 BPM P-R Int : 178 ms QRS Dur : 76 ms QT Int : 330 ms P-R-T Axes : 102 2 55 degrees QTcB Int : 405 ms Sinus rhythm with Premature supraventricular complexes Otherwise normal ECG Confirmed by TREV MELARA, LAY ([id number]), web editor RICHARD HANNA ([id number]) on 12/03/2024 11:09:56 AM Referred By: Confirmed By: LAY KARIMI MD
[2024-12-02 10:52] LABS: Absolute Lymphocyte Count 0.55 X10^3/uL (0.83-4.51); Absolute Neutrophil Count 4.4 X10^3/uL (2.0-7.7); Basophil# 0.01 X10^3/uL; Basophil% 0.2 % (0-1); Eosinophil# 0.18 X10^3/uL; Eosinophils% 2.9 % (0-5); Hematocrit 35.4 % (40-54); Hemoglobin 11.2 g/dL (13.0-16.5); Lymphocyte # 0.55 X10^3/ul (0.83-4.51); Lymphocyte % 8.9 % (19-41); Mean Corp Hgb Conc 31.6 g/dL (32-36); Mean Corpuscular Hgb 29.9 pg (27.0-32.0); Mean Corpuscular Volume 94.4 fL (80-94); Mean Platelet Vol. 8.6 fl (6.2-12.0); Monocyte# 0.94 X10^3/uL; Monocyte% 15.3 % (0-10); NRBC Flagged by Analyzer 0 % (0-5); Neutrophil # 4.44 X10^3/uL (2.7-7.7); Neutrophil % 72.2 % (47-70); POSITIVE DIFFERENTIAL YES; Platelet Count 138 K/mm3 (150-450); RBC Distribution Width CV 13.5 % (11.6-14.6); RBC Distribution Width SD 46.4 fl (35.1-43.9); Red Blood Count 3.75 M/mm3 (4.6-6.2); White Blood Count 6.2 K/mm3 (4.4-11.0)
[2024-12-02] MEDS: Acetaminophen 500 MG Tablet 1000 MG PO (10:58)
--- NOTE | 2024-12-02 11:00 | RAD_ITS ---
PROCEDURE: CHEST PA AND LATERAL 12/02/2024 REASON FOR EXAM: COUGH TECHNIQUE: CHEST PA AND LATERAL COMPARISON: None. RAD/Chest PA and Lateral IMPRESSION: Lungs appear clear of acute disease. No pleural effusion or pneumothorax is noted. The cardiomediastinal silhouette is remarkable for a somewhat calcified and tor tuous aorta. No evidence of cardiomegaly. Mild thoracic spine degenerative changes are seen, along with DISH. No acute osseous change is evident. Reading Location: [place] [address]
[2024-12-02 11:10] LABS: Anion Gap 8 (5-15); BUN 25 mg/dL (4-19); BUN/Creat Ratio 12.8 RATIO (10-20); Carbon Dioxide 26.6 mmol/L (21.0-32.0); Chloride 105 mmol/L (98-108); Creatinine, Serum 1.97 mg/dL (0.70-1.20); EST Glomerular Filtration Rate 33 (>60); Estimated Creatinine Clearance 32.45 ml/min (50-250); Glucose 111 mg/dL (70-99); Potassium 4.5 mmol/L (3.3-5.1); Sodium Level 140 mmol/L (133-145)
[2024-12-02 11:47] VITALS: BP 151/53; PULSE 74; RESP 18; TEMP 37.3; O2SAT 96
--- NOTE | 2024-12-02 12:46 | EX.ED.DYSGE1 ---
HPI History of Present Illness Chief Complaint: General Illness Narrative Narrative: Patient is a 84-year-old male with past medical history chronic kidney disease, hypertension, supraventricular tachycardia, YAJAIRA, paroxysmal atrial fibrillation on Eliquis who presented to the emergency department with chief complaint of cough and congestion. Patient states that he has been ill for approximately 3 days now and notes that he went to urgent care yesterday gave him Tessalon Perles this did not help his cough therefore he came here to the emergency department to be evaluated. Patient states that he went to get checked out as he has a large family reunion coming up soon and did not know if he had pneumonia and needed antibiotics. Patient states that he is coughing up sputum production more than his normal self and states that this is yellow-brown in nature. Patient denies chest pain or shortness of breath. 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 YAJAIRA (obstructive sleep apnea) Overweight (BMI 25.0-29.9) PAF (paroxysmal atrial fibrillation) Home Medications ?Medication ?Instructions ?Recorded ?Last Taken ?Type multivitamin 1 tab PO QDAY 10/20/17 12/01/24 History cholecalciferol (vitamin D3) 25 1,000 unit PO DAILY 12/08/19 12/02/24 History mcg (1,000 unit) tablet apixaban 5 mg tablet (Eliquis) 5 mg PO BID #180 tabs 10/21/24 12/02/24 Rx benzonatate 200 mg capsule 200 mg PO TID PRN cough 12/02/24 12/02/24 History diphenhydramine HCl 25 mg capsule 25 mg PO PRN 12/02/24 12/01/24 History (Allergy (diphenhydramine)) doxycycline hyclate 100 mg capsule 100 mg PO BID 5 days #10 caps 12/02/24 Unknown Rx Allergy/AdvReac Type Severity Reaction Status Date / Time Penicillins Allergy Intermediate Unknown Verified 12/02/24 09:16 iopromide (From Ultravist) Allergy unknown Verified 12/02/24 09:16 levofloxacin (From Levaquin) Allergy Rash Verified 12/02/24 09:16 Family History Father Hypertension Cardiomyopathy Surgical History History of left heart catheterization (11/14/18) History of ear surgery History of tympanoplasty of left ear (01/2014) History of needle biopsy History of tonsillectomy and adenoidectomy Hx of varicose veins Hx of colonoscopy Social History Smoking Status: Never smoker alcohol intake: never substance use type: does not use caffeine: Yes Type: coffee Number of servings: 1 ROS ROS ED ROS Narrative Constitutional: Denies fevers, chills, lightness, dizziness Eyes, ears, nose, throat: Complains of nasal congestion as noted above denies change in vision double vision blurry vision Cardiovascular: Denies chest pain Respiratory: Denies shortness of breath Abdomen: Denies nausea vomit diarrhea : Denies urine symptoms Neurological: Denies numbness, wheeze, tingling Musculoskeletal: Denies back pain Skin: Denies rashes or lesions EXAM Physical Exam Narrative Exam Narrative: General: Patient is lying in bed rest comfortably did not appear to be acute distress Head: Atraumatic, normocephalic Eyes: PERRL bilaterally, EOMI bilateral, no conjunctival injection noted Neck: Soft, supple, trachea midline Cardiovascular: Regular rate and rhythm Respiratory: Clear to auscultation bilaterally Abdomen: Soft, nondistended, no tenderness palpation Extremities: +5/5 strength noted the bilateral upper and lower extremity, radial pulses +2/4 in the bilateral extremities, no pedal edema no exam Neurological: Patient follow commands knew that he was at [facility] years 2024 Skin: Warm, dry contact no rashes or lesions noted Const Vital Signs: 12/02/24 09:14 12/02/24 09:15 12/02/24 10:13 Temperature 96.5 F L 96.5 F L Temperature Source Oral Oral Pulse Rate 92 92 Respiratory Rate 18 18 Respiratory Effort Normal Non-Labored Respiratory Pattern Normal Blood Pressure 131/73 H 131/73 H Blood Pressure Mean 92 92 Pulse Ox 95 95 Oxygen Delivery Method Room Air Room Air 12/02/24 10:15 12/02/24 11:47 Temperature 99.2 F H Temperature Source Oral Pulse Rate 74 Respiratory Rate 18 Respiratory Effort Respiratory Pattern Blood Pressure 151/53 H Blood Pressure Mean 85 Pulse Ox 96 Oxygen Delivery Method Room Air Room Air MDM MDM MDM Narrative Medical decision making narrative: Patient is a 84-year-old male who presented to the emergency department the chief complaint of cough, congestion and not feeling well. On the differential diagnose includes but not limited to ACS, pneumonia, upper respiratory feck and secondary viral etiology. Once workup is obtained and reviewed he will be reevaluated. Patient's CBC was reviewed showed no evidence leukocytosis white blood count normal at 6.2, hemoglobin 11.2, platelet count was noted be 138, sodium normal 140, potassium normal at 4.5, creatinine was elevated 1.97 he has underlying chronic kidney disease. Patient's chest x-ray reviewed by myself and by radiology showed no acute cardiopulmonary processes. Patient ambulated well here in the emergency department without any evidence Hypoxia or tachycardia. Discussed results with the patient he would like to go home at this point time. He will be given 5-day course doxycycline was advised follow-up his primary care physician return with worsening symptoms or concerns. He is agreeable this plan all question concerns answered he is discharged home in stable condition. Significant other bedside was also agreeable to plan. Lab Data Labs: Laboratory Results - last 24 hr 12/02/24 10:31 WBC 6.2 RBC 3.75 L Hgb 11.2 L Hct 35.4 L MCV 94.4 H MCH 29.9 MCHC 31.6 L RDW Std Deviation 46.4 H RDW Coeff of Jan 13.5 Plt Count 138 L MPV 8.6 Immature Gran % (Auto) 0.500 Neut % (Auto) 72.2 H Lymph % (Auto) 8.9 L Webb % (Auto) 15.3 H Eos % (Auto) 2.9 Baso % (Auto) 0.2 Absolute Neuts (auto) 4.4 Absolute Lymphs (auto) 0.55 L Nucleated RBC % 0 Sodium 140 Potassium 4.5 Chloride 105 Carbon Dioxide 26.6 Anion Gap 8 BUN 25 H Creatinine 1.97 H Estim Creat Clear Calc 32.45 L Est GFR (MDRD) Non-Af 33 L BUN/Creatinine Ratio 12.8 Glucose 111 H Calcium 9.0 Radiography Diagnostic Testing: Clinical Impression(s) from Imaging Studies Chest X-Ray 12/02/24 11:00 IMPRESSION: Lungs appear clear of acute disease. No pleural effusion or pneumothorax is noted. The cardiomediastinal silhouette is remarkable for a somewhat calcified and tortuous aorta. No evidence of cardiomegaly. Mild thoracic spine degenerative changes are seen, along with DISH. No acute osseous change is evident. Reading Location: [place] [address] Discharge Plan Triage Chief Complaint: General Illness ED Provider: Lonnie Yo Dx/Rx/DC Orders Clinical Impression: Cough, Chronic kidney disease (CKD), Sinusitis Prescriptions: New doxycycline hyclate 100 mg capsule 100 mg PO BID 5 Days Qty: 10 0RF No Action multivitamin tablet 1 tab PO QDAY cholecalciferol (vitamin D3) 1,000 UNIT tablet 1,000 unit PO DAILY benzonatate 200 mg capsule 200 mg PO TID PRN (Reason: cough) diphenhydramine HCl [Allergy (diphenhydramine)] 25 mg capsule 25 mg PO PRN Eliquis 5 mg tablet 5 mg PO BID Qty: 180 3RF Primary Care Provider: Oskar Leger Referrals: Oskar Leger MD [Primary Care Provider] - Activity Restrictions/Additional Instructions: Take antibiotics as prescribed. Follow-up your doctor in outpatient setting. Return with worsening symptoms or any other concerns Print Language: Arabic Disposition Disposition: Home, Self Care
[2024-12-02 13:01] VITALS: BP 149/71; PULSE 84; RESP 16; TEMP 36.6; O2SAT 100
--- OUTSIDE RECORDS SUMMARY | 2024-12-02 21:54 | XMS RPT_ITS | CCD ---
Author Organization [facility] Care Team Providers Care Ict Sales Assistant Name Role Phone Karlene CAMPOS, Yusra Jade Unavailable Unavailable Ghazala Franco Unavailable Unavailable Yaneth Watson Unavailable Ghazala Franco Unavailable Unavailable Karlene RN, Yusra A Unavailable Unavailable Tanya Padron Unavailable Unavailable Karlene RN, Yusra A Unavailable Unavailable Karlene RN, Yusra A Unavailable Unavailable Meliton Croft Unavailable Unavailable Meliton Croft Unavailable Unavailable Meliton Croft Unavailable Unavailable Karlene RN, Yusra A Unavailable Unavailable Karlene CAMPOS, Yusra A Unavailable Unavailable NORMA Banks, Ela Alonzo Unavailable Ghazala Franco Unavailable Unavailable Karlene RN, Yusra A Unavailable Unavailable Karlene RN, Yusra A Unavailable Unavailable ANDRES Marques, Sofia Alonzo Unavailable Unavailkadie Soler RN, Yusra A Unavailable Unavailable Karlene RN, Yusra A Unavailable Unavailable Oskar Leger MD Primary Care Provider Oskar Leger MD Primary Care Provider Oskar Leger MD Primary Care Provider Bina Rondon APRN.CNP M Unavailable OSKAR LEGER Primary Care Unavailable MÓNICA MARTIN Attending Unavaila ble OSKAR LEGER Primary Care Unavailable OSKAR LEGER Primary Care Unavailable OSKAR LEGER Primary Care Unavailable OSKAR LEGER Primary Care Unavailable TIEN JOINER Attending Unavailable OSKAR LEGER Primary Care Unavailable OSKAR LEGER Primary Care Unavailable OSKAR LEGER Attending Unavailable OSKAR LEGER Primary Care Unavailable OSKAR LEGER Attending Unavailable OSKAR LEGER Primary Care Unavailable Dr. Oskar Leger MD Primary Care Provider Dr. Keshia Campbell DO Attending Provider Dr. Keshia Campbell DO Referring Provider Sera Adame Attending Provider Johan MELARA, Dr. Estrella Referring Provider [phone] Wolfgang TORRES, Millicent Attending Unavailable Oskar Leger Primary Care Unavailable Oskar Leger Referring Unavailable Oskar Leger Primary Care Unavailable Keshia Campbell Attending Unavailable Keshia Campbell Referring Unavailable Oskar Leger Primary Care Unavailable Keshia Campbell Attending Unavailable Keshia Campbell Referring Unavailable Sameer Prado Referring Unavailable Sera Cid Attending Unavailable Oskar Leger Primary Care Unavailable Dr. Lonnie Yo DO Emergency Provider Allergies Allergy Classification Reported Allergen(s) Allergy Type Date of Onset Reaction(s) Facility (20 sources) Penicillins; Translations: [PENICILLINS] drug allergy 5 Rash [place] [facility] Work Phone: (17 sources) ULTRAVIST/LOPROMI DE drug allergy 7 unknown [facility] Work Phone: (17 sources) LEVQUIN drug allergy [address] [facility] [employer] Work Phone: (20 sources) iopromide; Translations: [IOPROMIDE] Drug Allergy 2 Other: See Comments [facility] (20 sources) levoFLOXacin; Translations: [LEVOFLOXACIN] Drug Allergy [address] [facility] (1 source) iopromide Drug Allergy 5 [facility] (1 source) levoFLOXacin Drug Allergy 5 [facility] Medications Current Medications Medication Drug Class(es) Dates Sig (Normalized) Sig (Original) benzonatate 200 mg oral capsule (4 sources) Non-narcotic Antitussive Start: 12-02-2024 take 1 capsule by mouth three times daily as needed for cough Benzonatate 200 mg capsule Active 200 mg PO THREE TIMES A DAY as needed for cough December 02, 2024 12:00am Start: 12-01-2024 take 1 capsule by mo uth three times daily as needed for cough benzonatate (TESSALON PERLE) 100 mg capsule Indications: Viral URI Take 1 capsule by mouth three times a day as needed for cough for up to 12 doses. 12 capsule 12/01/2024 Active Start: 10-25-2023 End: 11-01-2023 take 1 capsule by mouth every eight hours as needed benzonatate (TESSALON PERLE) 100 mg capsule Take 1 capsule by mouth three times a day as needed for cough for up to 7 days. 21 capsule 0 10/25/2023 11/01/2023 Active cephalexin 500 mg oral capsule (2 sources) Cephalosporin Antibacterial Start: 05-10-2022 End: 05-17-2022 take 1 capsule by mouth twice daily cephALEXin (KEFLEX) 500 mg capsule Take 1 capsule by mouth twice daily for 7 days. 14 capsule 0 05/10/2022 05/17/2022 Active Start: 05-10-2022 End: 05-10-2022 take 1 capsule by mouth three times daily cephALEXin (KEFLEX) 500 mg capsule Take 1 capsule by mouth three times daily for 5 days. 15 capsule 0 05/10/2022 05/10/2022 Discontinued Comment on above: Take 1 capsule by mo uth twice daily for 7 days. Take 1 capsule by mo uth three times daily for 5 days. cholecalciferol 0.025 mg oral tablet (3 sources) Vitamin D Start: 12-08-19 20 take 1 tablet by mouth once daily Cholecalciferol (Vitamin D3) 1,000 UNIT tablet Active 1000 U PO DAILY December 08, 2019 12:00am diphenhydrAMINE hydrochloride 25 mg oral capsule (4 sources) Histamine-1 Receptor Antagonist Start: 12-03-19 25 Diphenhydramine Hcl (Allergy (Diphenhydramine)) 25 mg capsule Active 25 mg PO NEEDED December 02, 2024 12:00am Start: 11-12-2018 End: 04-15-2019 Diphenhydramine Hcl (Benadry l) 25 mg capsule Discontinued 25 mg PO .COMPLEX 2 November 12, 2018 12:00am April 15, 2019 10:57am 25 mg PO tonight 11/12/18 and tomorrow night 11/13/18 for heart cath on 11/14/18; doxycycline hyclate 100 mg oral capsule (2 sources) Tetracycline-class Drug Start: 12-02-2024 take 1 capsule by mouth twice daily Doxycycline Hyclate 100 mg capsule Active 100 mg PO TWICE A DAY 10 December 02, 2024 12:00am Start: 10-17-2024 End: 10-22-2024 take 1 capsule by mouth twice daily doxycycline monohydrate (MONODOX) 100 mg capsule Indications: Acute non-recurrent sinusitis, unspecified location Take 1 capsule by mouth two times a day for 5 days. 10 capsule 10/17/2024 10/22/2024 Active ergocalciferol, vitamin D2, (VITAMIN D2 ORAL) (13 sources) ergocalciferol, vitamin D2, (VITAMIN D2 ORAL) Take by mouth. Active ergocalciferol, vitamin D2, (VITAMIN D2 ORAL) Take by mouth. 0 Active Comment on above: Take by mouth. fluticasone propionate 0.05 mg/actuat metered dose nasal spray (7 sources) Corticosteroid Start: 02-23-2024 take 1 spray(s) nasal route once daily fluticasone (FLONASE ALLERGY RELIEF) 50 mcg/actuation nasal spray Use 1 [employer] in each nostril once daily. 11.1 mL 02/23/2024 Active molnupiravir 200 mg capsule (5 sources) Start: 04-23-2023 End: 04-28-2023 take 4 capsules by mouth twice daily molnupiravir 200 mg capsule Take 4 capsules by mouth two times a day for 5 days. 40 capsule 0 04/23/2023 04/28/2023 Active Start: 04-23-2023 End: 04-23-2023 take 4 capsules by mouth twice daily molnupiravir 200 mg capsule Take 4 capsules by mouth two times a day for 5 days. 40 capsule 0 04/23/2023 04/23/2023 Discontinued Comment on above: Take 4 capsules by m outh two times a day for 5 days. multivitamin tablet (20 sources) Start: 04-01-2011 take 1 tablet by mouth once daily multivitamin tablet Take 1 tablet by mouth once daily. 0 04/01/2011 Active Comment on above: Take 1 tablet by robyn th once daily. Multivitamin tablet (3 sources) Start: 10-20-2017 Multivitamin tablet Active 1 {tbl} PO daily October 20, 2017 12:00am Completed/Discontinued Medications Medication Drug Class(es) Dates Sig (Normalized) Sig (Original) amLODIPine 2.5 mg oral tablet (17 sources) Dihydropyridine Calcium Channel [facility] Start: 01-03-2020 End: 05-11-2023 take 1 tablet by mouth once daily Amlodipine 2.5 mg tablet Discontinued 2.5 mg PO DAILY August 03, 2020 5:41pm January 18, 2023 2:25pm Comment on above: Take 1 tablet by robyn th once daily. apixaban 5 mg oral tablet (20 sources) Factor Xa Inhibitor Start: 11-02-2022 End: 10-21-2024 take 1 tablet by mouth twice daily Apixaban (Eliquis) 5 mg tablet Discontinued 5 mg PO TWICE A DAY October 18, 2023 10:23am October 21, 2024 10:12am aspirin 81 mg delayed release oral tablet (3 sources) Platelet Aggregation Inhibitor, Nonsteroidal Anti-inflammatory Drug Start: 11-08-2018 End: 11-14-2018 take 1 tablet by mouth once daily Aspirin (Adult Aspirin Regimen) 81 mg tablet,delayed release (DR/EC) Discontinued 81 mg PO DAILY November 08, 2018 12:00am November 14, 2018 11:08am atenolol 25 mg oral tablet (20 sources) beta-Adrenergic [facility] Start: 04-14-2021 End: 12-03-2021 take 0.5 tablet by mouth twice daily atenolol (TENORMIN) 25 mg tablet Take 0.5 tablets by mouth twice daily. 45 tablet 3 04/14/2021 12/03/2021 Discontinued (Discontinued by another Health Care Provider) Start: 02-08-2021 End: 11-30-2021 Atenolol 25 mg tablet Discon tinued 12.5 mg PO DAILY February 08, 2021 10:20am November 30, 2021 10:31am Start: 12-17-2019 End: 02-08-2021 Atenolol 25 mg tablet Discon tinued 12.5 mg PO TWICE A DAY June 08, 2020 2:22pm November 26, 2020 2:34pm Start: 12-08-2019 End: 12-17-2019 Atenolol 25 MG tablet Discon tinued 12.5 mg PO DAILY December 08, 2019 5:22pm December 17, 2019 11:51am Start: 06-07-2019 End: 12-08-2019 take 1 tablet by mouth once daily Atenolol 25 mg tablet Discontinued 25 mg PO DAILY June 07, 2019 1:29pm December 08, 2019 5:22pm Start: 11-19-2016 End: 04-15-2019 take 1 tablet by mouth once daily Atenolol 25 mg tablet Discontinued 25 mg PO DAILY July 26, 2018 10:53am April 15, 2019 11:16am Comment on above: Take 0.5 tablets by mouth twice daily. cefdinir 300 mg oral capsule (3 sources) Cephalosporin Antibacterial Start: 11-21-19 17 End: 10-21-19 18 take 2 capsules by mouth once daily Cefdinir 300 MG capsule Discontinued 600 mg PO DAILY November 20, 2016 12:00am October 20, 2017 2:31pm clopidogrel 75 mg oral tablet (6 sources) P2Y12 Platelet Inhibitor Start: 11-09-19 End: 11-15-19 19 take 1 tablet by mouth once daily Clopidogrel 75 MG tablet Discontinued 75 mg PO DAILY November 13, 2018 10:15am November 14, 2018 11:08am (stop Coumadin Mon11/09/18) Take FOUR (4) tablets on Monday, November 10, then 1 tablet daily to prepare for heart cath November 14; 24 hr isosorbide mononitrate 30 mg extended release oral tablet (18 sources) Nitrate Vasodilator Start: 03-27-20 End: 06-07-20 19 take 1 tablet by mouth once daily in the morning, then take 1 tablet by mouth every twenty-four hours Isosorbide Mononitrate 30 mg tablet extended release 24 hr Discontinued 30 mg PO EVERY MORNING April 15, 2019 11:24am June 07, 2019 1:09pm Start: 03-07-2019 End: 03-27-2019 Isosorbide Mononitrate 30 mg tablet extended release 24 hr Discontinued 15 mg PO .COMPLEX 0 March 07, 2019 8:48am March 27, 2019 2:00pm HOLD FOR NOW Start: 12-31-2018 End: 03-07-2019 take 0.5 tablet by mouth once daily Isosorbide Mononitrate 30 mg tablet extended release 24 hr Discontinued 30 mg PO .COMPLEX 0 December 31, 2018 9:58am March 07, 2019 8:49am 30 mg PO 0.5 tablet daily; Start: 11-14-2018 End: 12-31-2018 take 1 tablet by mouth once daily, then take 1 tablet by mouth every twenty-four hours Isosorbide Mononitrate 30 mg tablet extended release 24 hr Discontinued 30 mg PO DAILY November 14, 2018 12:00am December 31, 2018 9:58am MULTIPLE VITAMINS-MINERALS (4 sources) Start: 12-20-2016 take 1 tablet by mouth once daily MULTIVITAMIN ADULT TABS One tablet by mouth daily MULTIPLE VITAMINS-MINERALS [id number] Juan Chow MD MULTIPLE VITAMINS-MINERALS (11 sources) Start: 12-20-2016 take 1 tablet by mouth once daily MULTIVITAMIN ADULT TABS One tablet by mouth daily MULTIPLE VITAMINS-MINERALS [id number] Juan Chow MD Start: 12-20-2016 take 1 tablet by robyn th once daily MULTIVITAMIN ADULT TABS One tablet by mouth daily MULTIPLE VITAMINS-MINERALS [id number] Juan Chow MD multivitamin (MULTIPLE VITAMIN) ORAL tablet (1 source) Start: 04-01-2011 take 1 tablet by mouth once daily multivitamin (MULTIPLE VITAMIN) ORAL tablet Take 1 tablet by mouth once daily. 0 04/01/2011 Active Comment on above: Take 1 tablet by robyn th once daily. predniSONE 20 mg oral tablet (3 sources) Start: 11-12-2018 End: 04-15-2019 take 1 tablet by mouth in the morning Prednisone 20 mg tablet Discontinued 20 mg PO .COMPLEX 2 November 12, 2018 12:00am April 15, 2019 10:56am 20 mg PO this am and tomorrow am for heart cath on 11/14/2018; warfarin sodium 4 mg oral tablet (20 sources) Vitamin K Antagonist Start: 10-22-2018 End: 11-02-2022 Warfarin 4 mg tablet Discontinued 0 mg .ROUTE .COMPLEX July 07, 2022 9:34am November 02, 2022 2:46pm TAKE 1 TABLET ON MONDAY. ( TAKE A 2 MG TABLET ALL OTHER DAYS OF THE WEEK ) Please contact the information source for Protocol details. Start: 10-22-2018 End: 11-02-2022 Warfarin 2 mg tablet Discont inued 2 mg PO .6Xweek 90 July 07, 2022 9:33am November 02, 2022 2:46pm Please contact the information source for Protocol details. Start: 10-20-2017 End: 04-22-2023 take 1 tablet by mouth once daily warfarin (COUMADIN) 4 mg tablet Take 1 tablet by mouth daily as directed. Takes 4mg on T&Sat, 2mg other days of the week. 90 tablet 3 10/20/2017 04/22/2023 Discontinued Start: 07-14-2017 End: 10-22-2018 Warfarin 4 mg tablet Discont inued 4 mg PO .COMPLEX 90 April 26, 2018 5:52pm October 22, 2018 11:40am 4 mg PO 1 tablet on Saturdays; take 0.5 tablet (2mg) all other days of the week. Please contact the information source for Protocol details. Start: 07-14-2017 End: 07-14-2017 take 2 tablets by mouth every week Warfarin 4 MG tablet Discontinued 2 mg PO .COMPLEX July 14, 2017 5:06pm July 14, 2017 5:08pm 2 mg PO 2 tablets (4 mg ) on and Sat; 1 tablet other days of the week; blood thinner Start: 12-20-2016 take 1 tablet by robyn th once daily in the evening COUMADIN 4 MG TABS One tablet by mouth every evening WARFARIN SODIUM [id number] Juan Chow MD Start: 12-19-2016 End: 12-20-2016 WARFARIN SODIUM [address] Arvin Leger manages, takes 4 mg daily WARFARIN SODIUM [id number] Juan Chow MD Start: 11-19-2016 End: 07-14-2017 take 2 mg by mouth once daily Warfarin 4 MG tablet Dis continued 2 mg PO DAILY November 19, 2016 12:00am July 14, 2017 5:06pm Comment on above: Take 1 tablet by robyn th daily as directed. Takes 4mg on T&Sat, 2mg other days of the week. Problems Active Problems Problem Classification Problem Date Documented Date Episodic/Chronic Cardiac dysrhythmias (20 sources) Paroxysmal atrial fibrillation; Translations: [Supraventricular tachycardia] Onset: 06-12-1959 12-20-2016 Chronic Chronic kidney disease (20 sources) Chronic kidney disease stage 3; Translations: [CKD (chronic kidney disease) stage 3, GFR 30-59 ml/min] Onset: 03-29-2018 Resolved: 05-11-2023 03-29-2018 Chronic Chronic kidney disease (1 source) Chronic kidney disease; Translations: [Chronic kidney disease, stage 3b] Onset: 11-12-2024 Deficiency and other anemia (20 sources) Anemia co-occurrent and due to chronic kidney disease stage 3; Translations: [Anemia of chronic kidney failure, stage 3 (moderate) (HCC)] Onset: 04-27-2022 Chronic Essential hypertension (20 sources) Essential hypertension; Translations: [Essential (primary) hypertension] Onset: 03-08-2019 03-08-2019 Chronic Fracture of lower limb (1 source) Closed fracture proximal phalanx, toe ; Translations: [Displaced fracture of proximal phalanx of left lesser toe(s), initial encounter for closed fracture] Episodic Heart valve disorders (20 sources) Tricuspid incompetence, non-rheumatic ; Translations: [Non-rheumatic mitral regurgitation ] Onset: 12-19-2016 12-19-2016 Chronic Hyperplasia of prostate (20 sources) Benign prostatic hyperplasia; Translations: [Benign prostatic hyperplasia without lower urinary tract symptoms] Onset: 12-05-2005 Resolved: 03-21-2012 02-27-2017 Chronic Immunizations and screening for infectious disease (4 sources) Needs influenza immunization; Translations: [Encounter for immunization] Episodic Open wounds of extremities (1 source) Laceration of toe without foreign body; Translations: [Laceration without foreign body of left lesser toe(s) without damage to nail, initial encounter] Episodic Open wounds of extremities (1 source) Tear of skin; Translations: [Laceration without foreign body of right forearm, initial encounter] 02-15-2024 Episodic Other aftercare (3 sources) Long-term current use of anticoagulant; Translations: [nursing home (current) use of anticoagulants] 07-14-2017 Episodic Other circulatory disease (1 source) Elevated blood-pressure reading, without diagnosis of hypertension; Translations: [Elevated blood pressure reading] Onset: 05-21-2024 Episodic Other diseases of veins and lymphatics (5 sources) Venous insufficiency of leg; Translations: [Venous insufficiency (chronic) (peripheral)] 11-26-2020 Episodic Other diseases of veins and lymphatics (4 sources) Stasis dermatitis; Translations: [Venous insufficiency (chronic) (peripheral)] 11-08-2024 Episodic Other eye disorders (1 source) Subconjunctival hemorrhage of left eye; Translations: [Conjunctival hemorrhage, left eye] 05-05-2024 Episodic Other injuries and conditions due to external causes (1 source) Injury of toe of left foot; Translations: [Unspecified injury of left foot, initial encounter] 05-10-2022 Episodic Other lower respiratory disease (3 sources) Cough; Translations: [Acute cough] 10-25-2023 Episodic Other non-traumatic joint disorders (1 source) Shoulder pain; Translations: [Pain in left shoulder] Episodic Other non-traumatic joint disorders (1 source) Pain in left knee; Translations: [Pain in joint, lower leg] 06-17-2023 Episodic Other nutritional; endocrine; and metabolic disorders (20 sources) Obese class I; Translations: [Obesity, unspecified] Onset: 04-20-2022 Chronic Other nutritional; endocrine; and metabolic disorders (17 sources) Body mass index 25-29 - overweight; Translations: [Overweight] Onset: 03-07-2018 Resolved: 04-20-2022 04-14-2021 Episodic Other upper respiratory disease (1 source) Nasal discharge; Translations: [Other specified disorders of nose and nasal sinuses] 02-23-2024 Episodic Other upper respiratory infections (1 source) Sinusitis; Translations: [Chronic sinusitis, unspecified] 12-02-2024 Chronic Other upper respiratory infections (5 sources) Viral upper respiratory tract infection; Translations: [Acute upper respiratory infection, unspecified] Onset: 10-17-2024 Episodic Pulmonary heart disease (20 sources) Other secondary pulmonary hypertension; Translations: [Secondary pulmonary hypertension] Onset: 12-19-2016 12-19-2016 Chronic Residual codes; unclassified (20 sources) Obstructive sleep apnea syndrome; Translations: [Obstructive sleep apnea (adult) (pediatric)] Onset: 04-10-2012 06-07-2021 Chronic Residual codes; unclassified (4 sources) Bilateral lower limb edema; Translations: [Localized edema] 11-08-2024 Episodic Unclassified (11 sources) Warfarin therapy started; Translations: [nursing home (current) use of anticoagulants] Onset: 12-20-2016 12-20-2016 Unclassified (1 source) Acute cough; Translations: [Acute cough] Onset: 10-25-2023 Past or Other Problems Problem Classification Problem Date Documented Da te Episodic/Chronic Acute cerebrovascular disease (13 sources) Hemorrhage into subdural space of neuraxis; Translations: [Nontraumatic subdural hemorrhage, unspecified] Onset: 02-21-2011 Resolved: 03-21-2012 03-21-2012 Chronic Coagulation and hemorrhagic disorders (16 sources) Platelet count below reference range; Translations: [Thrombocytopenia, unspecified] Onset: 06-07-2012 Resolved: 04-27-2022 06-07-2021 Chronic Diverticulosis and diverticulitis (20 sources) Diverticulitis of large intestine without perforation or abscess without bleeding; Translations: [Diverticulitis of colon (without mention of hemorrhage)] Onset: 04-14-2006 Resolved: 03-07-2018 03-13-2014 Chronic Genitourinary symptoms and ill-defined conditions (20 sources) Blood in urine; Translations: [Hematuria] Onset: 04-18-2007 Resolved: 03-13-2014 10-15-2012 Episodic Other aftercare (4 sources) long term (current) use of anticoagulants; Translations: [long term (current) use of anticoagulants] Onset: 12-20-2016 12-20-2016 Episodic Other connective tissue disease (13 sources) Muscle atrophy; Translations: [Muscle wasting and atrophy, not elsewhere classified, unspecified site] Onset: 02-21-2011 Resolved: 10-15-2012 10-15-2012 Episodic Other diseases of veins and lymphatics (13 sources) Peripheral venous insufficiency; Translations: [Venous insufficiency (chronic) (peripheral)] Onset: 12-05-2005 Resolved: 02-27-2017 02-27-2017 Episodic Other inflammatory condition of skin (13 sources) Psoriasis; Translations: [Other psoriasis] Onset: 01-29-2013 Resolved: 02-27-2017 02-27-2017 Chronic Other inflammatory condition of skin (20 sources) Lichen planus; Translations: [Lichen planus, unspecified] Onset: 12-12-2012 11-09-2017 Episodic Other inflammatory condition of skin (13 sources) Hypertrophic lichen planus; 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] Onset: 12-12-2012 Resolved: 02-27-2017 02-27-2017 Episodic Other inflammatory condition of skin (13 sources) Pruritus, unspecified; Translations: [Unspecified pruritic disorder] Onset: 04-30-2013 Resolved: 02-27-2017 02-27-2017 Episodic Other male genital disorders (13 sources) Disorder of prostate; Translations: [Disorder of prostate, unspecified] Onset: 11-12-2007 Resolved: 03-21-2012 03-21-2012 Episodic Other nervous system disorders (17 sources) History of subdural hematoma; Translations: [Personal history of other diseases of the circulatory system] Onset: 12-19-2016 12-19-2016 Episodic Other screening for suspected conditions (not mental disorders or infectious disease) (15 sources) Patient encounter status; Translations: [Encounter for screening for malignant neoplasm of colon] Onset: 10-20-2017 Resolved: 03-07-2018 03-07-2018 Episodic Other skin disorders (13 sources) Acquired keratoderma; 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] Onset: 12-12-2012 Resolved: 02-27-2017 02-27-2017 Episodic Other skin disorders (13 sources) Asteatosis cutis; Translations: [Xerosis cutis] Onset: 12-12-2012 Resolved: 03-13-2014 03-13-2014 Episodic Other skin disorders (13 sources) Post-inflammatory hyperpigmentation; Translations: [Postinflammatory hyperpigmentation] Onset: 01-29-2013 Resolved: 02-27-2017 02-27-2017 Episodic Residual codes; unclassified (13 sources) Edema; Translations: [Edema, unspecified] Onset: 12-05-2005 Resolved: 03-21-2012 03-21-2012 Episodic Residual codes; unclassified (3 sources) History of cardiac catheterization; Translations: [Other specified postprocedural states] Onset: 11-14-2018 11-26-2020 Episodic Comment on above: Normal coronary virginie renny; Normal LV size, wall motion,and systolic function; LVEF: by LV gram 65 %Normal LV size, wall motion,and systolic function; Elevated Left Ventricular End Diastolic Pressure per [facility] 11/14/18 per [facility] Skin and subcutaneous tissue infections (13 sources) Abscess; Translations: [Cellulitis, unspecified] Onset: 01-22-2007 Resolved: 03-21-2012 03-21-2012 Episodic Thyroid disorders (13 sources) Non-toxic uninodular goiter; Translations: [Nontoxic single thyroid nodule] Onset: 12-05-2005 Resolved: 03-13-2014 03-13-2014 Chronic Varicose veins of lower extremity (20 sources) Varicose veins of lower limb co-occurrent with edema; Translations: [Varicose veins of bilateral lower extremities with other complications] Onset: 03-11-2011 02-27-2017 Episodic Results Test Name Value Interpretation Reference Range Facility Absolute lymphocyte countOrd ered By: Lonnie Yo on 12-02-2024 Lymphocytes Auto (Unsp spec) [#/Vol] 0.55 10*3/uL Low 0.83-4.51 [facility] Absolute neutrophil countOrd ered By: Lonnie Yo on 12-02-2024 Neutrophils (Bld) [#/Vol] 4.4 10*3/uL 2.0-7.7 [facility] Anion gap in Serum or Plasma Ordered By: Lonnie Yo on 12-02-2024 Anion gap [Moles/Vol] 8 mmol/L 5-15 [facility] Automated lymphocyte count a s percentage of total leukocytesOrdered By: Lonnie Yo on 12-02-2024 Lymphocytes/100 WBC Auto (Unsp spec) 8.9 % Low 19-41 [facility] BUN/creatinine ratioOrdered By: Lonnie Yo on 12-02-2024 Urea nitrogen/Creatinine [Mass ratio] 12.8 mg/mg 10-20 [facility] Basophil percentageOrdered B y: Lonnie Yo on 12-02-2024 Basophils/100 WBC (Bld) 0.2 % 0-1 [facility] Carbon dioxide, total [Moles /volume] in Central venous bloodOrdered By: Lonnie Yo on 12-02-2024 CO2 [Moles/Vol] 26.6 mmol/L 21.0-32.0 [facility] Chloride assayOrdered By: Pawan Yo on 12-02-2024 Chloride [Moles/Vol] 105 mmol/L 98-108 [facility] Eosinophil percentageOrdered By: Lonnie Yo on 12-02-2024 Eosinophils/100 WBC (Bld) 2.9 % 0-5 [facility] Erythrocyte distribution wid th ratioOrdered By: Lonnie Yo on 12-02-2024 Erythrocyte distribution width (RBC) [Ratio] 13.5 % 11.6-14.6 [facility] Erythrocyte distribution wid th standard deviationOrdered By: Lonnie Yo on 12-02-2024 Erythrocyte distribution width (RBC) [Ratio] 46.4 fl High 35.1-43.9 [facility] Glomerular filtration rate ( GFR) estimation/1.73 sq m using serum, plasma, or whole bOrdered By: Lonnie Yo on 12-02-2024 GFR/1.73 sq M.predicted among non-blacks MDRD (S/P/Bld) [Vol rate/Area] 33 mL/min/{1.73_m2} Low >60 [facility] Comment on above: mL/min/1.73m2 CKD-EP I Creatinine Equation (2020) Hematocrit Auto (Bld) [Volum e fraction]Ordered By: Lonnie Yo on 12-02-2024 Hematocrit (Bld) [Volume fraction] 35.4 % Low 40-54 [facility] Hemoglobin measurementOrdere d By: Lonnie Yo on 12-02-2024 Hemoglobin (Bld) [Mass/Vol] 11.2 g/dL Low 13.0-16.5 [facility] Immature granulocytes/100 WB C Auto (Bld)Ordered By: Lonnie Yo on 12-02-2024 Immature granulocytes/100 WBC (Bld) 0.500 % 0.0-0.9 [facility] Comment on above: IG% - Immature Granu locytes (promyelocytes, myelocytes and metamyelocytes) > 1% indicates that a LEFT SHIFT is Present. MCV (mean corpuscular volume ) determinationOrdered By: Lonnie Yo on 12-02-2024 MCV (RBC) [Entitic vol] 94.4 fL High 80-94 [facility] Mean corpuscular hemoglobin (MCH) determinationOrdered By: Lonnie Yo 12-02-2024 MCH (RBC) [Entitic mass] 29.9 pg 27.0-32.0 [facility] Mean corpuscular hemoglobin concentration (MCHC) determinationOrdered By: Lonnie Yo 12-02-2024 MCHC (RBC) [Mass/Vol] 31.6 g/dL Low 32-36 [facility] Mean platelet volume determi nationOrdered By: Lonnie Yo on 12-02-2024 Platelet mean volume (Bld) [Entitic vol] 8.6 fL 6.2-12.0 [facility] Monocyte percentageOrdered B y: Lonnie Yo on 12-02-2024 Monocytes/100 WBC (Bld) 15.3 % High 0-10 [facility] Neutrophil percentageOrdered By: Lonnie Yo on 12-02-2024 Neutrophils/100 WBC (Bld) 72.2 % High 47-70 [facility] Nucleated red blood cell per centageOrdered By: Lonnie Yo on 12-02-2024 Nucleated RBC/100 WBC (Bld) [Ratio] 0 % 0-5 [facility] Platelet countOrdered By: Pawan Yo on 12-02-2024 Platelets (Bld) [#/Vol] 138 10*3/uL Low 150-450 [facility] Potassium measurement (mass/ volume)Ordered By: Lonnie Yo on 12-02-2024 Potassium (Unsp spec) [Mass/Vol] 4.5 mmol/L 3.3-5.1 [facility] RBC Auto (Bld) [#/Vol]Ordere d By: Lonnie Yo on 12-02-2024 RBC (Bld) [#/Vol] 3.75 10*6/uL Low 4.6-6.2 [facility] Serum creatinine measurement (mass/volume)Ordered By: Lonnie Yo on 12-02-2024 Creatinine [Mass/Vol] 1.97 mg/dL High 0.70-1.20 [facility] Serum glucose measurement (m ass/volume)Ordered By: Lonnie Yo on 12-02-2024 Glucose [Mass/Vol] 111 mg/dL High 70-99 [facility] Serum or plasma calcium joann urement (mass/volume)Ordered By: Lonnie Yo on 12-02-2024 Calcium [Mass/Vol] 9.0 mg/dL 7.6-11.0 [facility] Serum or plasma urea nitroge n measurement (mass/volume)Ordered By: Lonnie Yo on 12-02-2024 Urea nitrogen [Mass/Vol] 25 mg/dL High 4-19 [facility] Sodium levelOrdered By: Americo Yo on 12-02-2024 Sodium [Moles/Vol] 140 mmol/L 133-145 [facility] White blood cell (WBC) count Ordered By: Lonnie Yo on 12-02-2024 WBC (Bld) [#/Vol] 6.2 10*3/uL 4.4-11.0 [facility] MR/BMS.BVSon 11-08-2024 MR/BMS.BVS [facility] Vascular Surgery [address] [place] [address] OFFICE VISIT Date of Service: 11/08/24 MR#: [id number] Acct: [id number] Name: RJ LEUNG Rep #: [id number] : 1940 Provider: PHUONG Waggoner Age/Sex: 84/M Location: [facility] Status: Signed Intake Vital Signs 01/31/24 09:41 11/08/24 11:16 Height 6 ft 2 in Weight: 219 lb BP 154/76 H Blood Pressure Location Lt brachial Position Sitting Respiration 16 Pulse 92 Pulse Source Monitor Temp 97.6 F L Temp Source Temporal Pulse Oximetry (%) 98 Oxygen Delivery Method room air Intake Visit Reasons: Stasis Derm, Swelling in RLE Is patient in pain?: No Allergies Penicillins Allergy (Intermediate, Verified 11/08/24 11:18) Unknown iopromide (From Ultravist) Allergy (Verified 11/08/24 11:18) unknown levofloxacin (From Levaquin) Allergy (Verified 11/08/24 11:18) Rash Medications ???Medication ???Instructions ???Recorded ???Confirmed ???Type multivitamin 1 tab PO QDAY 10/20/17 11/08/24 Hi story cholecalciferol (vitamin D3) 25 1,000 unit PO DAILY 12/08/1911/08 History mcg (1,000 unit) tablet apixaban 5 mg tablet (Eliquis) 5 mg PO BID #180 tabs 10/21/24 Rx Have you fallen in the past year?: No PFSH Medical History Chronic kidney disease (CKD) Venous insufficiency of both lower extremities Essential (primary) hypertension Subdural hematoma (2010) Varicose veins of both lower extremities Thrombocytopenia Nontoxic uninodular goiter BPH (benign prostatic hyperplasia) Diverticulitis Benign neoplasm Adrenal adenoma SVT (supraventricular tachycardia) History of subdural hematoma long term current use of anticoagulant YAJAIRA (obstructive sleep apnea) Overweight (BMI 25.0-29.9) PAF (paroxysmal atrial fibrillation) Surgical History History of left heart catheterization (11/14/18) History of ear surgery History of tympanoplasty of left ear (01/2014) History of needle biopsy History of tonsillectomy and adenoidectomy Hx of varicose veins Hx of colonoscopy Family History Father Hypertension Cardiomyopathy Social History Smoking Status: Never smoker alcohol intake: never substance use type: does not use caffeine: Yes Type: coffee Number of servings: 1 HPI HPI HPI: RJ LEUNG, is a 84 M who presents to the office today for evaluation of venous insufficiency with associated venous stasis dermatitis and lipodermatosclerosis as referred by dermatology Dr. Prado. He is accompanied to his appointment today by his . They reside in [place] half the year and in [facility] the other half of the year. He has not had any recent venous imaging available in our system. He reports a long history of venous insufficiency with his first venous procedure (vein stripping) in 1970. He has had multiple prior ablations and sclerotherapy treatments over the last several years, locally by Dr. Mascorro and in [place] by a Dr. Wakefield. He does have chronic lower extremity edema, right worse than left. He states his veins have always been worse in the RLE. Over the years, he has dealt with stasis dermatitis to the right lateral and medial ankle and did have a recent flare for which he saw Dr. Prado. This has improved significantly with use of topical steroid and at this time he no longer is in an acute flare, just dealing with significant dry/peeling skin in these areas. He has these symptoms to a lesser degree on the left medial ankle. At present, he is utilizing knee-high compression stockings of uncertain strength. He does wear them daily and is able to apply them without issue. He is also faithful with elevating his legs at times of rest and staying active throughout the day. Other than the chronic skin changes, he does not presently have any aching/heaviness or other discomfort in his legs. He denies any history of DVT, SVT, or PE. He denies any history of leg/abdomen/pelvis/donta k injury, radiation therapy, lymph node dissection, or known spine disease. ROS General General: No weight change, appetite, fatigue, colon cancer, breast cancer or weakness HEENT HEENT: No difficulty swallowing, eye injury, eye surgery, swollen glands or hoarseness Endo Endocrine: No thyroid disease, diabetes mellitus, thyroid cancer, Hair loss, heat intolerance or cold intolerance Skin Skin: No rash or changing moles Musc Musculoskeletal: No back problems, arthritis, rheumatoid arthritis, gout or joint pain Cardio Cardiovascular: Yes atrial fibrillation; No murmur, pacemaker, heart disease, high blood pressure, (more content not included)... Normal [facility] Anion gap in Serum or Plasma Ordered By: Keshia Campbell on 11-06-2024 Anion gap [Moles/Vol] 11 mmol/L 10-24 [facility] BUN/creatinine ratioOrdered By: Keshia Campbell on 11-06-2024 Urea nitrogen/Creatinine [Mass ratio] 15.0 mg/mg 03-31 [facility] CBC-Complete Blood Cnt No Di ffon 11-06-2024 Erythrocyte distribution width (RBC) [Ratio] 12.9 % Normal 11.6-14.6 [facility] Comment on above: Performed By: #### L 500.3600, L100.0500, L509.1000 #### [facility] [address] [place], [address] Hematocrit (Bld) [Volume fraction] 34.8 % Low 40-54 [facility] Comment on above: Performed By: #### L 500.3600, L100.0500, L509.1000 #### [facility] [address] [place], [address] Hemoglobin (Bld) [Mass/Vol] 10.9 g/dL Low 13.0-16.5 [facility] Comment on above: Performed By: #### L 500.3600, L100.0500, L509.1000 #### [facility] [address] [place], [address] MCH (RBC) [Entitic mass] 29.9 pg Normal 27.0-32.0 [facility] Comment on above: Performed By: #### L 500.3600, L100.0500, L509.1000 #### [facility] [address] [place], [address] MCHC (RBC) [Mass/Vol] 31.3 g/dL Low 32-36 [facility] Comment on above: Performed By: #### L 500.3600, L100.0500, L509.1000 #### [facility] [address] [place], [address] MCV (RBC) [Entitic vol] 95.3 fL High 80-94 [facility] Comment on above: Performed By: #### L 500.3600, L100.0500, L509.1000 #### [facility] [address] [place], [address] Platelet mean volume (Bld) [Entitic vol] 9.1 fL Normal 6.2-12.0 [facility] Comment on above: Performed By: #### L 500.3600, L100.0500, L509.1000 #### [facility] [address] [place], [address] Platelets (Bld) [#/Vol] 189 10*3/uL Normal 150-450 [facility] Comment on above: Performed By: #### L 500.3600, L100.0500, L509.1000 #### [facility] [address] [place], [address] RBC (Bld) [#/Vol] 3.65 10*6/uL Low 4.6-6.2 [facility] Comment on above: Performed By: #### L 500.3600, L100.0500, L509.1000 #### [facility] [address] [place], [address] RDW SD 44.7 fl High 35.1-43.9 [facility] Comment on above: Performed By: #### L 500.3600, L100.0500, L509.1000 #### [facility] [address] [place], [address] WBC (Bld) [#/Vol] 5.3 10*3/uL Normal 4.4-11.0 [facility] Comment on above: Performed By: #### L 500.3600, L100.0500, L509.1000 #### [facility] [address] [place], [address] Carbon dioxide, total [Moles /volume] in Central venous bloodOrdered By: Keshia Campbell on 11-06-2024 CO2 [Moles/Vol] 24.1 mmol/L 21.0-32.0 [facility] Chloride assayOrdered By: Mikel Campbell on 11-06-2024 Chloride [Moles/Vol] 105 mmol/L 98-108 [facility] Erythrocyte distribution wid th ratioOrdered By: Keshia Campbell on 11-06-2024 Erythrocyte distribution width (RBC) [Ratio] 12.9 % 11.6-14.6 [facility] Erythrocyte distribution wid th standard deviationOrdered By: Keshia Campbell on 11-06-2024 Erythrocyte distribution width (RBC) [Ratio] 44.7 fl High 35.1-43.9 [facility] Glomerular filtration rate ( GFR) estimation/1.73 sq m using serum, plasma, or whole bOrdered By: Keshia Campbell on 11-06-2024 GFR/1.73 sq M.predicted among non-blacks MDRD (S/P/Bld) [Vol rate/Area] 35 mL/min/{1.73_m2} Low >60 [facility] Comment on above: mL/min/1.73m2 CKD-EP I Creatinine Equation (2020) Hematocrit Auto (Bld) [Volum e fraction]Ordered By: Keshia Campbell on 11-06-2024 Hematocrit (Bld) [Volume fraction] 34.8 % Low 40-54 [facility] Hemoglobin measurementOrdere d By: Keshia Campbell on 11-06-2024 Hemoglobin (Bld) [Mass/Vol] 10.9 g/dL Low 13.0-16.5 [facility] MCV (mean corpuscular volume ) determinationOrdered By: Keshia Campbell on 11-06-2024 MCV (RBC) [Entitic vol] 95.3 fL High 80-94 [facility] Mean corpuscular hemoglobin (MCH) determinationOrdered By: Keshia Campbell on 11-06-2024 MCH (RBC) [Entitic mass] 29.9 pg 27.0-32.0 [facility] Mean corpuscular hemoglobin concentration (MCHC) determinationOrdered By: Keshia Campbell on 11-06-2024 MCHC (RBC) [Mass/Vol] 31.3 g/dL Low 32-36 [facility] Mean platelet volume determi nationOrdered By: Keshia Campbell on 11-06-2024 Platelet mean volume (Bld) [Entitic vol] 9.1 fL 6.2-12.0 [facility] PTHINon 11-06-2024 PTH 78 pg/mL High 11-61 [facility] Comment on above: Performed By: #### L 500.3600, L100.0500, L509.1000 #### [facility] [address] [place], [address] Platelet countOrdered By: Mikel Campbell on 11-06-2024 Platelets (Bld) [#/Vol] 189 10*3/uL 150-450 [facility] Potassium measurement (mass/ volume)Ordered By: Keshia Campbell on 11-06-2024 Potassium (Unsp spec) [Mass/Vol] 4.4 mmol/L 3.3-5.1 [facility] RBC Auto (Bld) [#/Vol]Ordere d By: Keshia Campbell on 11-06-2024 RBC (Bld) [#/Vol] 3.65 10*6/uL Low 4.6-6.2 [facility] Renal Profileon 11-06-2024 Albumin [Mass/Vol] 4.2 g/dL Normal 3.4-4.8 [facility] Comment on above: Performed By: #### L 500.3600, L100.0500, L509.1000 #### [facility] [address] [place], [address] BUN/CRE 15.0 RATIO Normal 10-20 [facility] Comment on above: Performed By: #### L 500.3600, L100.0500, L509.1000 #### [facility] [address] [place], [address] Calcium [Mass/Vol] 9.2 mg/dL Normal 7.6-11.0 [facility] Comment on above: Performed By: #### L 500.3600, L100.0500, L509.1000 #### [facility] [address] [place], [address] Chloride [Moles/Vol] 105 mmol/L Normal 98-108 [facility] Comment on above: Performed By: #### L 500.3600, L100.0500, L509.1000 #### [facility] [address] [place], [address] CO2 [Moles/Vol] 24.1 mmol/L Normal 21.0-32.0 [facility] Comment on above: Performed By: #### L 500.3600, L100.0500, L509.1000 #### [facility] [address] [place], [address] Creatinine [Mass/Vol] 1.89 mg/dL High 0.70-1.20 [facility] Comment on above: Performed By: #### L 500.3600, L100.0500, L509.1000 #### [facility] [address] [place], [address] GAP 11 Normal 5-15 [facility] Comment on above: Performed By: #### L 500.3600, L100.0500, L509.1000 #### [facility] [address] [place], [address] GFR/1.73 sq M.predicted among non-blacks MDRD (S/P/Bld) [Vol rate/Area] 35 mL/min/{1.73_m2} Low >60 [facility] Comment on above: Result Comment: mL/m in/1.73m2 CKD-EPI Creatinine Equation (2020) Performed By: #### L 500.3600, L100.0500, L509.1000 #### [facility] [address] [place], [address] Glucose [Mass/Vol] 86 mg/dL Normal 70-99 [facility] Comment on above: Performed By: #### L 500.3600, L100.0500, L509.1000 #### [facility] [address] [place], [address] Phosphate [Mass/Vol] 3.3 mg/dL Normal 2.7-4.5 [facility] Comment on above: Performed By: #### L 500.3600, L100.0500, L509.1000 #### [facility] [address] [place], [address] Potassium [Moles/Vol] 4.4 mmol/L Normal 3.3-5.1 [facility] Comment on above: Performed By: #### L 500.3600, L100.0500, L509.1000 #### [facility] [address] [place], [address] Sodium [Moles/Vol] 140 mmol/L Normal 133-145 [facility] Comment on above: Performed By: #### L 500.3600, L100.0500, L509.1000 #### [facility] [address] [place], [address] Urea nitrogen [Mass/Vol] 28 mg/dL High - [facility] Comment on above: Performed By: #### L 500.3600, L100.0500, L509.1000 #### [facility] [address] [place], [address] Serum creatinine measurement (mass/volume)Ordered By: Keshia Campbell on 11-06-2024 Creatinine [Mass/Vol] 1.89 mg/dL High 0.70-1.20 [facility] Serum glucose measurement (m ass/volume)Ordered By: Keshia Campbell on 11-06-2024 Glucose [Mass/Vol] 86 mg/dL 70-99 [facility] Serum or plasma albumin joann urement (mass/volume)Ordered By: Keshia Campbell on 11-06-2024 Albumin [Mass/Vol] 4.2 g/dL 3.4-4.8 [facility] Serum or plasma calcium joann urement (mass/volume)Ordered By: Keshia Campbell on 11-06-2024 Calcium [Mass/Vol] 9.2 mg/dL 7.6-11.0 [facility] Serum or plasma urea nitroge n measurement (mass/volume)Ordered By: Keshia Campbell on 11-06-2024 Urea nitrogen [Mass/Vol] 28 mg/dL High 09-28 [facility] Sodium levelOrdered By: Ashlee Campbell on 11-06-2024 Sodium [Moles/Vol] 140 mmol/L 133-145 [facility] White blood cell (WBC) count Ordered By: Keshia Campbell on 11-06-2024 WBC (Bld) [#/Vol] 5.3 10*3/uL 4.4-11.0 [facility] CNOVon 10-17-2024 CNOV Office Visit (UCWSTR ) RJ LEUNG ([id number]) 1940 M Date Time Provider Department 10/17/24 11:30 AM TIEN JOINER [facility] During your visit today, we recorded the following information about you: Temperature Pulse Respiration Blood pressure 97.2 degrees 76/minute 16/minute 137/72 Weight 99.8 kg Tien Joiner MD 10/17/2024 11:49 AM Signed [facility] Subjective Rj Leung is a 83 year old male. Patient presents with: Sinus Problem: With congestion and cough x 2 week, took Covid test 1 week ago, negative Patient presents with 2 weeks of head cold symptoms. Has had sinus pressure, nasal congestion, rhinorrhea, postnasal drainage, scratchy throat, cough, slight wheeze, and fatigue. Denies fever, chills, shortness of breath. He has used nighttime cough medicine and lozenges. 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 He uses CPAP. Review of Systems Objective BP 137/72 (BP Site: Left Arm, BP Position: Sitting) Pulse 76 Temp 36.2 ?C (97.2 ?F) Resp 16 Wt 99.8 kg (220 lb 0.3 oz) SpO2 99% BMI 29.03 kg/m? Physical Exam Constitutional: General: He is not in acute distress. Appearance: He is not ill-appearing. HENT: Right Ear: Tympanic membrane and ear canal normal. Left Ear: Tympanic membrane and ear canal normal. Nose: Congestion present. Eyes: Extraocular Movements: Extraocular movements intact. Conjunctiva/sclera: Conjunctivae normal. Pupils: Pupils are equal, round, and reactive to light. Cardiovascular: Rate and Rhythm: Normal rate and regular rhythm. Heart sounds: No murmur heard. Pulmonary: Effort: No respiratory distress. Breath sounds: No wheezing, rhonchi or rales. Musculoskeletal: Cervical back: Neck supple. Lymphadenopathy: Cervical: No cervical adenopathy. Neurological: Mental Status: He is alert. {ASSESSMENT/PLAN: 1. Acute non-recurrent sinusitis, unspecified location - ICD9: 461.9, ICD10: J01.90 Treat for secondary bacterial sinusitis with - DOXYCYCLINE MONOHYDRATE 100 MG CAPSULE (reports child has an issue with penicillin) He may continue supportive care treatment with [id number] cough AND cold medicines. Tien Joiner MD Differential Diagnoses - sinusitis is more likely for the following reason(s): suggested by HANDP - seasonal allergies is less likely for the following reason(s): denies prior history Procedures Allergies As of Date: 10/17/2024 Noted Allergy Reaction LEVAQUIN (LEVOFLOXACIN) 01/05/2011 2 - Rash PENICILLINS 04/29/2005 2 - Rash ULTRAVIST (IOPROMIDE) 03/29/2012 14 - Other: See Comments Comments: Pt sneezed twice after contrast injection. Radiologist notified and evaluated patient. No meds were given and was advised to be pre medicated for future tests. Date Reviewed: 10/17/2024 Reviewed by: Jana Nino OCCA - Fully Assessed Reason for Visit: Sinus Problem [99] Cmt: With congestion and cough x 2 week, took Covid test 1 week ago, negative Primary Visit Diagnosis:Acute non-recurrent sinusitis, unspecified location [J01.90] Order(s):doxycycline monohydrate (MONODOX) 100 mg capsuleTake 1 capsule by mouth two times a day for 5 days.Disp: 10 capsuleRfl: 0 Prescriptions as of 10/17/2024 - doxycycline monohydrate (MONODOX) 100 mg capsule Take 1 capsule by mouth two times a day for 5 days. - fluticasone (FLONASE ALLERGY RELIEF) 50 mcg/actuation nasal spray Use 1 Armour in each nostril once daily. - ergocalciferol, vitamin D2, (VITAMIN D2 ORAL) Take by mouth. - ELIQUIS 5 mg tab(s) - multivitamin tablet Take 1 tablet by mouth once daily. Problem List As Of Date 10/17/2024 Noted Resolved Nontoxic uninodular goiter [E04.1] 12/05/2005 03/13/2014 BPH without obstruction/lower urinary tract sym*12/05/2005 Unspecified venous (peripheral) insufficiency [*12/05/2005 02/27/2017 Edema [R60.9] 12/05/2005 03/21/2012 DIVERTICULITIS SIGMOID-NO HEMORRHAGE [K57.32] 04/14/2006 03/13/2014 Paroxysmal atrial fibrillation (HCC) [I48.0] 01/03/2020 RECURRENT CELLULITIS [L03.90, L02.91] 01/22/2007 03/21/2012 Hematuria [599.7] 04/18/2007 10/15/2012 Hypertrophy of prostate with urinary obstructio*10/18/2007 03/21/2012 Unspecified disorder of prostate [N42.9] 11/12/2007 03/21/2012 Microscopic hematuria [R31.29] 03/01/2010 03/13/2014 Muscular wasting and disuse atrophy, not elsewh*02/21/2011 10/15/2012 Subdural hemorrhage [I62.00] 02/21/2011 03/21/2012 Varicose veins of leg with edema, bilateral [I8*03/11/2011 YAJAIRA (obstructive sleep apnea) on CPAP [G47.33] 04/10/2012 Thrombocytopenia (HCC) [D69.6] 06/07/2012 04/27/2022 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 Normal [facility] CNOVon 05-25-2024 CNOV Office Visit (INTMWS ) RJ LEUNG ([id number]) 1940 M Date Time Provider Department 05/25/24 9:40 AM OSKAR LEGER INTMWS During your visit today, we recorded the following information about you: Pulse Respiration Blood pressure Weight 64/minute 16/minute 129/67 102.1 kg Oskar Leger MD 05/25/2024 10:46 AM Signed This note was created using [employer]. Subjective Rj Leung is a 83 year old male here with his spouse. He became concerned about elevated blood pressure since they were about to leave for [place]. He went to the ER where blood pressure was monitored and was stable. He was here for a recheck. Review of Systems Constitutional: Negative for fatigue. Respiratory: Negative for chest tightness and shortness of breath. Cardiovascular: Negative for chest pain and palpitations. Neurological: Negative for dizziness and headaches. ACTIVE PROBLEM LIST Bph Without Obstruction/Lower Urinary Tract Symptoms Paroxysmal Atrial Fibrillation (Hcc) Varicose Veins of Leg With Edema, Bilateral YAJAIRA (obstructive sleep apnea) on CPAP Lichen Planus Essential Hypertension Obesity, Class I, Bmi 30-34.9 Anemia due to stage 3b chronic kidney disease (HCC) Objective BP 129/67 Pulse 64 Resp 16 Wt 102.1 kg (225 lb 1.4 oz) BMI 29.70 kg/m? Physical Exam Constitutional: Appearance: He is not ill-appearing. Cardiovascular: Rate and Rhythm: Normal rate and regular rhythm. Heart sounds: No murmur heard. No gallop. Pulmonary: Breath sounds: Normal breath sounds. Neurological: Mental Status: He is alert. Assessment and Plan 1. Essential hypertension - ICD9: 401.9, ICD10: I10 Diet controlled. - Recommend home blood pressure monitoring, to bring results to next visit - Encouraged sodium restriction, DASH or Mediterranean diet Oskar Leger MD Allergies As of Date: 05/25/2024 Noted Allergy Reaction LEVAQUIN (LEVOFLOXACIN) 01/05/2011 2 - Rash PENICILLINS 04/29/2005 2 - Rash ULTRAVIST (IOPROMIDE) 03/29/2012 14 - Other: See Comments Comments: Pt sneezed twice after contrast injection. Radiologist notified and evaluated patient. No meds were given and was advised to be pre medicated for future tests. Date Reviewed: 05/25/2024 Reviewed by: Jackie Garcia MA - Fully Assessed Reason for Visit: Recheck [92] Cmt: ER follow up, HTN Primary Visit Diagnosis:Essential hypertension [I10] Prescriptions as of 05/25/2024 - fluticasone (FLONASE ALLERGY RELIEF) 50 mcg/actuation nasal spray Use 1 Armour in each nostril once daily. - ergocalciferol, vitamin D2, (VITAMIN D2 ORAL) Take by mouth. - ELIQUIS 5 mg tab(s) - multivitamin tablet Take 1 tablet by mouth once daily. Problem List As Of Date 05/25/2024 Noted Resolved Nontoxic uninodular goiter [E04.1] 12/05/2005 03/13/2014 BPH without obstruction/lower urinary tract sym*12/05/2005 Unspecified venous (peripheral) insufficiency [*12/05/2005 02/27/2017 Edema [R60.9] 12/05/2005 03/21/2012 DIVERTICULITIS SIGMOID-NO HEMORRHAGE [K57.32] 04/14/2006 03/13/2014 Paroxysmal atrial fibrillation (HCC) [I48.0] 01/03/2020 RECURRENT CELLULITIS [L03.90, L02.91] 01/22/2007 03/21/2012 Hematuria [599.7] 04/18/2007 10/15/2012 Hypertrophy of prostate with urinary obstructio*10/18/2007 03/21/2012 Unspecified disorder of prostate [N42.9] 11/12/2007 03/21/2012 Microscopic hematuria [R31.29] 03/01/2010 03/13/2014 Muscular wasting and disuse atrophy, not elsewh*02/21/2011 10/15/2012 Subdural hemorrhage [I62.00] 02/21/2011 03/21/2012 Varicose veins of leg with edema, bilateral [I8*03/11/2011 YAJAIRA (obstructive sleep apnea) on CPAP [G47.33] 04/10/2012 Thrombocytopenia (HCC) [D69.6] 06/07/2012 04/27/2022 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] 12/12/2012 02/27/2017 Lichen planus [L43.9] 12/12/2012 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 02/27/2017 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] 12/12/2012 03/13/2014 Other psoriasis [L40.8] 01/29/2013 02/27/2017 Postinflammatory hyperpigmentation [L81.0] 01/29/2013 02/27/2017 Pruritus [L29.9] 04/30/2013 02/27/2017 Encounter for colorectal cancer screening [Z12.*10/20/2017 03/07/2018 Diverticulosis of large intestine without hemor*10/20/2017 03/07/2018 Overweight (BMI 25.0-29.9) [E66.3] 03/07/2018 04/20/2022 Stage 3b chronic kidney disease (HCC) [N18.32] 04/27/2022 05/11/2023 Essential hypertension [I10] 03/08/2019 Obesity, Class I, BMI 30-34.9 [E66.811] 04/20/2022 Anemia due to stage 3b chronic kidney disease (*04/27/2022 Disposition: Return if symptoms worsen or fail to improve. Follow-up and Disposition History for Encounter Date Provider Department Center 05/25/2024 [id number] LEGER [facility] [place] Encounter Status:Closed by OSKAR LEGER on 05/25/24 Normal [facility] ED NOTEon 05-21-2024 ED NOTE HNO ID: [id number] Author: MONIKA RODRIGUEZ, ANDRES Service: Emergency Medicine Author Type: Registered Nurse Type: ED Notes Filed: 05/21/2024 17:43 Note Text: Pt c/o htn at home of 160 SBP. Denies other s/s at this time. BP on arrival to ER 159/87. [place], warm, dry. No apparent distress. Alert and oriented. Not on BP meds at home. Normal [facility] ED PROV NOTEon 05-21-2024 ED PROV NOTE HNO ID: [id number] Author: MÓNICA MARTIN DO Service: Emergency Medicine Author Type: Physician Type: ED Provider Notes Filed: 05/22/2024 01:24 Note Text: ED Provider Note Patient Name: Rj Leung : 1940 SERVICE DATE: 05/21/24 History Patient presents with: Hypertension Rj Leung is a 83 year old male with history of multiple chronic medical problems who presents with Hypertension. - Symptoms began a couple days. - Severity: moderate - Symptoms are associated with nothing. - Symptoms are not associated with abdominal pain, chest pain, fever, nausea, shortness of breath, vomiting, headache, vision changes, numbness, weakness, decreased urination. Patient presents for elevated blood pressure. He states he had a history of elevated blood pressure in the past, but a couple years ago he states he was dizzy when he would stand up and they took him off of his blood pressure medication. He has not been on any since. He states that he did see his primary yesterday and his blood pressure was elevated. He states they have been tracking it at home and it has been as high as 174 systolic, and then went to [employer] and checked it and it was 160 systolic. Currently on arrival he is 159 systolic. He states he has no symptoms with this. He states he has no headache, vision changes, numbness, weakness, dizziness, nausea, vomiting, chest pain, shortness of breath. He states he is urinating normally. He states on Eliquis for history of atrial fibrillation, no other medications at this time. 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 Other psoriasis 01/29/2013 RECURRENT CELLULITIS 01/22/2007 Subdural hematoma, post-traumatic (HCC) 01/29/2011 01-29-11, resolved post fall off ladder Thrombocytopenia (HCC) 06/07/2012 Varicose veins of lower extremities with other complications 03/11/2011 VENOUS INSUFFICIENCY NOS 12/05/2005 PAST SURGICAL HISTORY Procedure Laterality Date CARDIAC CATH 11/14/2018 COLONOSCOPY FLX DX W/COLLJ SPEC WHEN PFRMD 10/31/2017 Colonoscopy COLONOSCOPY W/BIOPSY SINGLE/MULTIPLE 04/14/06 Sigmoid diverticulitis PAST SURGICAL HISTORY OF 1971 R leg varicose vein removal THYROID FINE NEEDLE ASPIRATION 02/06/06 U/S guided right mid and superior pole THYROID RIGHT FINE NEEDLE ASPIRATION 11/22/08 U/S FNA right thyroid x 2 nodules TONSILLECTOMY AND ADENOIDECTOMY TYMPANOSTOMY LOCAL/TOPICAL ANESTHESIA 01/2014 Left ear. TYMPANOSTOMY LOCAL/TOPICAL ANESTHESIA Left 03/06/2018 replacement FAMILY HISTORY Problem Relation Age of Onset Thyroid Mother Heart Father enlarged heart Arthritis Brother knee replaced Social History Tobacco Use Smoking status: Never Smokeless tobacco: Never Substance and Sexual Activity Alcohol use: No Drug use: No Sexual activity: Not on file ALLERGIES Allergen Reactions Levaquin [Levofloxa* Rash Penicillins Rash Ultravist [Iopromid* Other: See Comments Pt sneezed twice after contrast injection. Radiologist notified and evaluated patient. No meds were given and was advised to be pre medicated for future tests. Review of Systems Constitutional: Negative for chills and fever. HENT: Negative for facial swelling and trouble swallowing. Eyes: Negative for visual disturbance. Respiratory: Negative for shortness of breath. Cardiovascular: Negative for chest pain. Gastrointestinal: Negative for abdominal pain, nausea and vomiting. Genitourinary: Negative for difficulty urinating and flank pain. Musculoskeletal: Negative for neck stiffness. Neurological: Negative for dizziness, syncope, facial asymmetry, speech difficulty, weakness, numbness and headaches. Psychiatric/Behavioral : Negative for agitation and confusion. Physical Exam Vitals BP Pulse Temp Temp src Resp SpO2 Weight Height 05/21/24 1742 05/21/24 1743 05/21/24 1743 05/21/24 1743 05/21/24 1814 05/21/24 1743 05/21/24 1743 -- 159/87 66 36.7 ?C (98 ?F) Temporal 20 98 % 99.8 kg (220 lb) Physical Exam Vitals and nursing note reviewed. Constitutional: General: He is not in acute distress. Appearance: He is not ill-appearing, toxic-appearing or diaphoretic. HENT: Head: Normocephalic and atraumatic. Mouth/Throat: Mouth: Mucous membranes are moist. Eyes: General: No scleral icterus. Extraocular Movements: Extraocular moveme (more content not included)... Normal [facility] CNOVon 05-20-2024 CNOV Office Visit (INTMWS ) RJ LEUNG ([id number]) 1940 M Date Time Provider Department 05/20/24 12:00 PM OSKAR LEGER [facility] During your visit today, we recorded the following information about you: Temperature Pulse Blood pressure Weight 98.2 degrees 70/minute 128/64 100.1 kg Height 1.854 m Oskar Leger MD 05/20/2024 1:52 PM Signed Rj Leung is a 83 year old male here for a Medicare wellness visit. Medicare Health Risk Assessment General Health Good Exercise: Minutes/Day 10 min Exercise: Days/Week 7 days Alcohol: Daily Use Never Alcohol: Drinks/Day Patient does not drink Alcohol: 6 or more drinks Never Feel off balance No Concerns: Teeth/Dentures No Concerns: Sexual function No Troubled by feelings None of the above Frequency: Eating healthy diet Nearly every day ADLs requiring help None of the above Safety precautions in home/vehicle Yes Smoke, vape, chews tobacco No Difficulty hearing Yes, I wear a hearing aid Difficulty seeing No Current Providers Specialists: I have reviewed specialist-related care of the patient in the medical record. Current care team: Patient Care Team: Oskar Leger MD as PCP - General (Internal Medicine) Bina Rondon, ROSALINDA.MEDICAL LANGUAGE SPECIALIST as Marine Erector (Internal Medicine) Outside specialists seen: Samia Kuo MD (Cardiology, [facility]) Sameer Prado MD ([facility]) Keshia Campbell MD ([facility]) Rj Shafer MD ([facility]) Elías Barron MD ([facility]) Dr. Wakefield, Vascular surgery in [place]. Medical/Family history review Reviewed and updated problem list, medical/surgical/famil y/social history, medications, and allergies. Opioid use review Opioid Medications (last 90 days) No data to display Depression Screening Cognitive screening Mini Cog Score: 4 Cognitive screening reviewed and No further action needed (score 3-5). Functional Observation Was the patient's Timed Up AND Go test unsteady or >= 12 seconds? No Advance Care Planning Patient did not wish or was not able to name a surrogate decision maker or provide an advance care plan Measurements BP 140/68 (BP Site: Left Arm, BP Position: Sitting, BP Cuff Size: Large Adult) Pulse 70 Temp 36.8 ?C (98.2 ?F) (Temporal) Ht 185.4 cm (6' 1) Wt 100.1 kg (220 lb 10.9 oz) BMI 29.12 kg/m? Vision Screening: Follows with optometry/ophthalmolog y Right: 20/50 Left: 20/ 50 Both: 20/50 Assessment/Plan Medicare annual wellness visit, subsequent (Z00.00) - Counseled on healthy diet and regular exercise - Fall avoidance information provided - Personalized prevention plan provided - Discussed need for and benefit of weight loss. BMI 29.12 kg/(m2) - Vaccine recommendations reviewed. Oskar Leger MD 05/20/2024 1:52 PM Signed This note was created using [employer]. Subjective Rj Leung is a 83 year old male here with Tory. He was asking about going back to warfarin instead of apixiban. His hypertension was diet controlled. He had no new concerns. They were leaving for [place] in a few weeks. He gets vein surgeries in [place]. Review of Systems Constitutional: Negative for activity change, appetite change, fatigue and unexpected weight change. Respiratory: Negative for cough and shortness of breath. Cardiovascular: Positive for leg swelling. Negative for chest pain and palpitations. Gastrointestinal: Negative for blood in stool. Genitourinary: Negative for hematuria. Neurological: Negative for dizziness and headaches. ACTIVE PROBLEM LIST Bph Without Obstruction/Lower Urinary Tract Symptoms Paroxysmal Atrial Fibrillation (Hcc) Varicose Veins of Leg With Edema, Bilateral YAJAIRA (obstructive sleep apnea) on CPAP Lichen Planus Essential Hypertension Obesity, Class I, Bmi 30-34.9 Anemia due to stage 3b chronic kidney disease (HCC) Social History Tobacco Use Smoking status: Never Smokeless tobacco: Never Substance Use Topics Alcohol use: No Drug use: No Current Outpatient Medications Medication Sig fluticasone (FLONASE ALLERGY RELIEF) 50 mcg/actuation nasal spray Use 1 Armour in each nostril once daily. ergocalciferol, vitamin D2, (VITAMIN D2 ORAL) Take by mouth. ELIQUIS 5 mg tab(s) multivitamin tablet Take 1 tablet by mouth once daily. No current facility-administered medications for this visit. Objective BP 128/64 (BP Site: Left Arm, BP Position: Sitting, BP Cuff Size: Large Adult) Pulse 70 Temp 36.8 ?C (98.2 ?F) (Temporal) Ht 185.4 cm (6' 1) Wt 100.1 kg (220 lb 10.9 oz) BMI 29.12 kg/m? Physical Exam Constitutional: Appearance: He is not ill-appearing. HENT: Head: Normocephalic. Eyes: Conjunctiva/sclera: Conjunctivae normal. Cardiovascular: Rate and Rhythm: Normal rate and regular rhythm. Occasional Extrasystoles are present. Hea (more content not included)... Normal [facility] CNOVon 05-05-2024 CNOV Office Visit (UCTR ) RJ LEUNG ([id number]) 1940 M Date Time Provider Department 05/05/24 2:45 PM JAGDISH BENDER [facility] During your visit today, we recorded the following information about you: Temperature Pulse Respiration Blood pressure 97.2 degrees 64/minute 16/minute 122/68 Weight 101 kg Jagdish Bender APRN.MEDICAL LANGUAGE SPECIALIST 05/05/2024 3:00 PM Signed Subjective HPI Nontoxic-appearing male presents urgent care chief complaint bleeding in the left eye. Patient states first noticed this yesterday. No pain. Was sneezing a lot. No eye injury. No flashes light or floaters. No visual acuity changes. Risk factors Eliquis. No fevers. Past medical history prescription medications allergies reviewed. 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 Other psoriasis 01/29/2013 RECURRENT CELLULITIS 01/22/2007 Subdural hematoma, post-traumatic (HCC) 01/29/2011 01-29-11, resolved post fall off ladder Thrombocytopenia (HCC) 06/07/2012 Varicose veins of lower extremities with other complications 03/11/2011 VENOUS INSUFFICIENCY NOS 12/05/2005 PAST SURGICAL HISTORY Procedure Laterality Date CARDIAC CATH 11/14/2018 COLONOSCOPY FLX DX W/COLLJ SPEC WHEN PFRMD 10/31/2017 Colonoscopy COLONOSCOPY W/BIOPSY SINGLE/MULTIPLE 04/14/06 Sigmoid diverticulitis PAST SURGICAL HISTORY OF 1971 R leg varicose vein removal THYROID FINE NEEDLE ASPIRATION 02/06/06 U/S guided right mid and superior pole THYROID RIGHT FINE NEEDLE ASPIRATION 11/22/08 U/S FNA right thyroid x 2 nodules TONSILLECTOMY AND ADENOIDECTOMY TYMPANOSTOMY LOCAL/TOPICAL ANESTHESIA 01/2014 Left ear. TYMPANOSTOMY LOCAL/TOPICAL ANESTHESIA Left 03/06/2018 replacement ALLERGIES Levaquin [Levofloxacin], Penicillins, and Ultravist [Iopromide] MEDICATIONS fluticasone (FLONASE ALLERGY RELIEF) 50 mcg/actuation nasal spray Use 1 Armour in each nostril once daily. ergocalciferol, vitamin D2, (VITAMIN D2 ORAL) Take by mouth. ELIQUIS 5 mg tab(s) multivitamin tablet Take 1 tablet by mouth once daily. FAMILY HISTORY Problem Relation Age of Onset Thyroid Mother Heart Father enlarged heart Arthritis Brother knee replaced Social History Tobacco Use Smoking status: Never Smokeless tobacco: Never Substance Use Topics Alcohol use: No Drug use: No BP 122/68 Pulse 64 Temp 36.2 ?C (97.2 ?F) Resp 16 Wt 101 kg (222 lb 10.6 oz) SpO2 98% BMI 29.35 kg/m? Review of Systems Constitutional: Negative for chills, fever and malaise/fatigue. HENT: Negative for congestion, ear discharge, ear pain, sinus pain and sore throat. Eyes: Negative for blurred vision, double vision, photophobia, pain, discharge and redness. Respiratory: Negative for cough, hemoptysis, sputum production, shortness of breath, wheezing and stridor. Cardiovascular: Negative for chest pain. Gastrointestinal: Negative for abdominal pain, diarrhea, nausea and vomiting. Musculoskeletal: Negative for myalgias. Skin: Negative for itching and rash. Neurological: Negative for dizziness and headaches. Objective Physical Exam Constitutional: General: He is not in acute distress. Appearance: He is not toxic-appearing. HENT: Head: Normocephalic. Nose: Nose normal. Eyes: General: Lids are normal. Vision grossly intact. Left eye: No foreign body, discharge or hordeolum. Conjunctiva/sclera: Right eye: No hemorrhage. Left eye: Hemorrhage present. No chemosis or exudate. Pupils: Pupils are equal, round, and reactive to light. Comments: Subconjunctival hemorrhage noted left eye highlighted area. No hyphema. No surrounding erythema edema noted. Cardiovascular: Rate and Rhythm: Normal rate. Pulmonary: Effort: Pulmonary effort is normal. No respiratory distress. Musculoskeletal: Cervical back: Normal range of motion. Skin: General: Skin is warm and dry. Neurological: General: No focal deficit present. Mental Status: He is alert. ASSESSMENT/PLAN: 1. Subconjunctival hemorrhage of left eye - ICD9: 372.72, ICD10: H11.32 No eye pain. Visual acuity normal. Treat supportively. ER evaluation criteria discussed. Reach out to ophthalmology morning for further evaluation care Patient was educated on supportive (more content not included)... Normal [facility] CNOVon 02-23-2024 CNOV Office Visit ([facility] ) RJ LEUNG ([id number]) 1940 Date Time Provider Department 02/23/24 10:15 AM JAGDISH BENDER [facility] During your visit today, we recorded the following information about you: Temperature Pulse Respiration Blood pressure 97.4 degrees 68/minute 18/minute 145/75 Weight 97.1 kg Jagdsih Bender APRN.MEDICAL LANGUAGE SPECIALIST 02/23/2024 10:33 AM Signed Subjective HPI Nontoxic-appearing male presents urgent care chief complaint rhinorrhea. Duration of symptoms 6 days. Associated symptoms nasal congestion. Has used some Zyrtec this has helped some. No other OTC medications. Overall feels well. Denies any fever body aches chills productive cough chest pain shortness of breath pleuritic pain hemoptysis nausea vomiting abdominal pain change in bowel or bladder habits. Past medical history prescription medication use and allergies reviewed. 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 Other psoriasis 01/29/2013 RECURRENT CELLULITIS 01/22/2007 Subdural hematoma, post-traumatic (HCC) 01/29/2011 01-29-11, resolved post fall off ladder Thrombocytopenia (HCC) 06/07/2012 Varicose veins of lower extremities with other complications 03/11/2011 VENOUS INSUFFICIENCY NOS 12/05/2005 PAST SURGICAL HISTORY Procedure Laterality Date CARDIAC CATH 11/14/2018 COLONOSCOPY FLX DX W/COLLJ SPEC WHEN PFRMD 10/31/2017 Colonoscopy COLONOSCOPY W/BIOPSY SINGLE/MULTIPLE 04/14/06 Sigmoid diverticulitis PAST SURGICAL HISTORY OF 1971 R leg varicose vein removal THYROID FINE NEEDLE ASPIRATION 02/06/06 U/S guided right mid and superior pole THYROID RIGHT FINE NEEDLE ASPIRATION 11/22/08 U/S FNA right thyroid x 2 nodules TONSILLECTOMY AND ADENOIDECTOMY TYMPANOSTOMY LOCAL/TOPICAL ANESTHESIA 01/2014 Left ear. TYMPANOSTOMY LOCAL/TOPICAL ANESTHESIA Left 03/06/2018 replacement ALLERGIES Levaquin [Levofloxacin], Penicillins, and Ultravist [Iopromide] MEDICATIONS ergocalciferol, vitamin D2, (VITAMIN D2 ORAL) Take by mouth. ELIQUIS 5 mg tab(s) multivitamin tablet Take 1 tablet by mouth once daily. FAMILY HISTORY Problem Relation Age of Onset Thyroid Mother Heart Father enlarged heart Arthritis Brother knee replaced Social History Tobacco Use Smoking status: Never Smokeless tobacco: Never Substance Use Topics Alcohol use: No Drug use: No BP 145/75 Pulse 68 Temp 36.3 ?C (97.4 ?F) Resp 18 Wt 97.1 kg (214 lb 1.1 oz) SpO2 99% BMI 28.22 kg/m? Review of Systems Constitutional: Negative for chills, fever and malaise/fatigue. HENT: Positive for congestion. Negative for ear discharge, ear pain, sinus pain and sore throat. Eyes: Negative for blurred vision, pain, discharge and redness. Respiratory: Negative for cough, hemoptysis, sputum production, shortness of breath, wheezing and stridor. Cardiovascular: Negative for chest pain. Gastrointestinal: Negative for abdominal pain, diarrhea, nausea and vomiting. Musculoskeletal: Negative for myalgias. Skin: Negative for itching and rash. Neurological: Negative for dizziness and headaches. Objective Physical Exam Constitutional: General: He is not in acute distress. Appearance: He is not diaphoretic. HENT: Head: Normocephalic. Jaw: No trismus, tenderness, swelling or pain on movement. Nose: Congestion present. Mouth/Throat: Mouth: Mucous membranes are moist. Pharynx: Oropharynx is clear. Uvula midline. No pharyngeal swelling, oropharyngeal exudate, posterior oropharyngeal erythema or uvula swelling. Eyes: Conjunctiva/sclera: Conjunctivae normal. Pupils: Pupils are equal, round, and reactive to light. Cardiovascular: Rate and Rhythm: Normal rate and regular rhythm. Heart sounds: Normal heart sounds. Pulmonary: Effort: Pulmonary effort is normal. No tachypnea, accessory muscle usage or respiratory distress. Breath sounds: Normal breath sounds. No stridor. No wheezing, rhonchi or rales. Musculoskeletal: Cervical back: Normal range of motion and neck supple. No edema, erythema, rigidity or tenderness. No pain with movement. Normal range of motion. Lymphadenopathy: Cervical: No cervical adenopathy. Skin: General: Skin is warm and dry. Neurological: (more content not included)... Normal [facility] CNOVon 02-15-2024 CNOV Office Visit ([facility]WSTR ) RJ LEUNG ([id number]) 1940 M Date Time Provider Department 02/15/24 10:45 AM TIEN JOINER [facility] During your visit today, we recorded the following information about you: Temperature Pulse Respiration Blood pressure 97 degrees 57/minute 18/minute 144/71 Weight 99 kg Tien Joiner MD 02/15/2024 10:53 AM Signed Patient presents with: Trauma: Right forearm, had fall x 3 days and fell into wood and received x 5 lacerations HPI: Skin Lesion: Location: right forearm Duration: fell 2 days ago into wood pile and cut his arm Pruritis/Pain: NO Change: none Drainage/blister/pustu le/ulceration: bleeds Treatment: Washing with hydrogen peroxide. Applying hydrocortisone 2 gauze pads. MEDICATIONS: ergocalciferol, vitamin D2, (VITAMIN D2 ORAL) Take by mouth. ELIQUIS 5 mg tab(s) multivitamin tablet Take 1 tablet by mouth once daily. ALLERGIES: ALLERGIES Allergen Reactions Levaquin [Levofloxa* Rash Penicillins Rash Ultravist [Iopromid* Other: See Comments Pt sneezed twice after contrast injection. Radiologist notified and evaluated patient. No meds were given and was advised to be pre medicated for future tests. VITALS: BP 144/71 Pulse (!) 57 Temp 36.1 ?C (97 ?F) Resp 18 Wt 99 kg (218 lb 4.1 oz) SpO2 99% BMI 28.77 kg/m? PE: Pleasant, in no acute distress. Accompanied by his . FOREARM: right. 5 parallel transversely oriented skin tears on the ventral aspect ranging from <1cm to 4cm. There is purple macular ecchymosis. No erythema or induration. Full range of motion of wrist, hand, and elbow without pain. Bloody drainage blotted onto Chux pad without active bleeding. ASSESSMENT/PLAN: 1. Skin tear of right forearm without complication, initial encounter - ICD9: 881.00, ICD10: S51.811A No signs of infection. Wound care discussed. Wash with soap and water. Avoid peroxide and overdrying wound. Dressed with bacitracin on nonadherent pad and wrapped with Coban. Tien Joiner MD Allergies As of Date: 02/15/2024 Noted Allergy Reaction LEVAQUIN (LEVOFLOXACIN) 01/05/2011 2 - Rash PENICILLINS 04/29/2005 2 - Rash ULTRAVIST (IOPROMIDE) 03/29/2012 14 - Other: See Comments Comments: Pt sneezed twice after contrast injection. Radiologist notified and evaluated patient. No meds were given and was advised to be pre medicated for future tests. Date Reviewed: 02/15/2024 Reviewed by: Michell Dias LPN - Fully Assessed Reason for Visit: Trauma [112] Cmt: Right forearm, had fall x 3 days and fell into wood and received x 5 lacerations Primary Visit Diagnosis:Skin tear of right forearm without complication, initial encounter [S51.811A] Prescriptions as of 02/15/2024 - ergocalciferol, vitamin D2, (VITAMIN D2 ORAL) Take by mouth. - ELIQUIS 5 mg tab(s) - multivitamin tablet Take 1 tablet by mouth once daily. Problem List As Of Date 02/15/2024 Noted Resolved Nontoxic uninodular goiter [E04.1] 12/05/2005 03/13/2014 BPH without obstruction/lower urinary tract sym*12/05/2005 Unspecified venous (peripheral) insufficiency [*12/05/2005 02/27/2017 Edema [R60.9] 12/05/2005 03/21/2012 DIVERTICULITIS SIGMOID-NO HEMORRHAGE [K57.32] 04/14/2006 03/13/2014 Paroxysmal atrial fibrillation (HCC) [I48.0] 01/03/2020 RECURRENT CELLULITIS [L03.90, L02.91] 01/22/2007 03/21/2012 Hematuria [599.7] 04/18/2007 10/15/2012 Hypertrophy of prostate with urinary obstructio*10/18/2007 03/21/2012 Unspecified disorder of prostate [N42.9] 11/12/2007 03/21/2012 Microscopic hematuria [R31.29] 03/01/2010 03/13/2014 Muscular wasting and disuse atrophy, not elsewh*02/21/2011 10/15/2012 Subdural hemorrhage [I62.00] 02/21/2011 03/21/2012 Varicose veins of leg with edema, bilateral [I8*03/11/2011 YAJAIRA (obstructive sleep apnea) on CPAP [G47.33] 04/10/2012 Thrombocytopenia (HCC) [D69.6] 06/07/2012 04/27/2022 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] 12/12/2012 02/27/2017 Lichen planus [L43.9] 12/12/2012 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 02/27/2017 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] 12/12/2012 03/13/2014 Other psoriasis [L40.8] 01/29/2013 02/27/2017 Postinflammatory hyperpigmentation [L81.0] 01/29/2013 02/27/2017 Pruritus [L29.9] 04/30/2013 02/27/2017 Encounter for colorectal cancer screening [Z12.*10/20/2017 03/07/2018 Diverticulosis of large intestine without hemor*10/20/2017 03/07/2018 Overweight (BMI 25.0-29.9) [E66.3] 03/07/2018 04/20/2022 Stage 3b chronic kidney disease (HCC) [N18.32] 04/27/2022 05/11/2023 Essential hypertension [I10] 03/08/2019 Obesity, Class I, BMI 30-34.9 [E66.9] 04/20/2022 Anemia due to stage 3b chronic kidney disease (*04/27/2022 Level of Service: OFFICE/OUTPATIENT ESTABLISHED LOW MDM 20 MIN [27656] Encounter Status:Closed by TIEN JOINER on 02/15/24 Normal [facility] Cardiology Visit Reporton Cardiology Visit Report [facility] [address] [place] [address] OFFICE VISIT Date of Service: 01/31/24 MR#: [id number] Acct: [id number] Name: RJ LEUNG Rep #: [id number] : 1940 Provider: JOSEPHINE morrison Age/Sex: 83/M Location: [facility] [place] [facility] Status: Signed HPI HPI History of Present Illness Details: This is a 83 year old male who presents to the office today for a cardiovascular follow up visit. He has a past medical history significant for chronic kidney disease and paroxysmal atrial fibrillation. From a cardiac standpoint, the patient is doing well. He denies any palpitations, chest pain, pressure or heaviness. He denies SOB, Orthopnea, and PND. He does wear a CPAP nightly. He does not have bleeding issues; no blood in urine, stool or nosebleeds. He does acknowledge occasional fatigue. He attributes this to his age. He denies myalgias, or claudication. He does not have edema, or sudden weight gain. He denies dizziness, lightheadedness, syncopal or near syncopal episodes, and headaches. 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 Is patient in pain?: No Allergies iopromide (From Ultravist) Allergy (Verified 01/31/24 10:04) unknown levofloxacin (From Levaquin) Allergy (Verified 01/31/24 10:04) Rash Penicillins Allergy (Verified 01/31/24 10:04) Unknown Medications ???Medication ???Instructions ???Recorded ???Confirmed ???Type multivitamin 1 tab PO QDAY 10/20/17 01/31/24 History cholecalciferol (vitamin D3) 25 1,000 unit PO DAILY 12/08/19 01/31/24 History mcg (1,000 unit) tablet apixaban 5 mg tablet (Eliquis) 5 mg PO BID #180 tabs 10/18/23 01/31/24 Rx Have you fallen in the past year?: No PFSH Medical History Chronic kidney disease (CKD) Venous insufficiency of both lower extremities Essential (primary) hypertension Subdural hematoma (2010) Varicose veins of both lower extremities Thrombocytopenia Nontoxic uninodular goiter BPH (benign prostatic hyperplasia) Diverticulitis Benign neoplasm Adrenal adenoma SVT (supraventricular tachycardia) History of subdural hematoma long term current use of anticoagulant YAJAIRA (obstructive sleep apnea) Overweight (BMI 25.0-29.9) PAF (paroxysmal atrial fibrillation) Surgical History History of left heart catheterization (11/14/18) History of ear surgery History of tympanoplasty of left ear (01/2014) History of needle biopsy History of tonsillectomy and adenoidectomy Hx of varicose veins Hx of colonoscopy Family History Father Hypertension Cardiomyopathy Social History Smoking Status: Never smoker alcohol intake: never substance use type: does not use caffeine: Yes Type: coffee Number of servings: 1 ROS Const Const: Positive for fatigue; Negative for weakness, fever(s), headache(s), chills, frequent falls, weight gain or weight loss Eyes Eyes: Negative for blind spots, loss of peripheral vision, transient loss of vision, blurry vision, change in vision, double vision, floaters or tunnel vision ENT ENT: Negative for headache(s), dizziness, Nosebleed/epistaxis, balance problems or neck pain Cardio Chest Pain: No Palpitations: No Edema: None Muscle aches with walking: None Resp Respiratory: Negative for SOB with activity, SOB at rest or SOB orthopnea SOB lying down GI GI: Negative nausea, vomiting, heartburn, bloating, vomiting blood/hematemesis, bright, red blood in stools or black,tarry stools Musc Musc: Negative for muscle aches/ myalgia, muscle weakness, joint pain or balance problems Neuro Neuro: Negative for dizziness, lightheadedness, near syncope, syncope, orthostatic symptoms, frequent falls, headache(s), weakness, blurry vision or double vision Sanjay Hematologic/Lymphatic: Negative for easy bleeding or easy bruising Endo Endo: Positive for fatigue Cardiology Exam Const Appearance: cooperative, comfortable and no acute distress Nutritional Appearance: well nourished Orientation: alert and oriented x3 Head Head: normal to inspection Ears: hearing grossly normal bilaterally Nose: external nose normal Face and Sinus: face symmetric Eyes General: appearance normal, both eyes and all related structures Eyelids: eyelids normal Conjunctivae: conjunctivae normal Pupils: (more content not included)... Normal [facility] HH, Hemoglobin AND Hematocri ton 12-21-2023 Hematocrit (Bld) [Volume fraction] 36.6 % Low 40-54 [facility] Comment on above: Performed By: #### L 509.1000, L100.0600, L500.3600 #### [facility] [address] [place], [address] Hemoglobin (Bld) [Mass/Vol] 11.7 g/dL Low 13.0-16.5 [facility] Comment on above: Performed By: #### L 509.1000, L100.0600, L500.3600 #### [facility] [address] [place], [address] PTHINon 12-21-2023 PTH 92.9 pg/mL High 18.4-80.1 [facility] Comment on above: Performed By: #### L 509.1000, L100.0600, L500.3600 #### [facility] [address] [place], [address] Renal Profileon 12-21-2023 Albumin [Mass/Vol] 3.7 g/dL Normal 3.2-5.0 [facility] Comment on above: Performed By: #### L 509.1000, L100.0600, L500.3600 #### [facility] [address] [place], [address] BUN/CRE 16.5 RATIO Normal 10-20 [facility] Comment on above: Performed By: #### L 509.1000, L100.0600, L500.3600 #### [facility] [address] [place], [address] CA,Total 9.1 mg/dL Normal 8.5-10.1 [facility] Comment on above: Performed By: #### L 509.1000, L100.0600, L500.3600 #### [facility] [address] [place], [address] Chloride [Moles/Vol] 107 mmol/L Normal 98-107 [facility] Comment on above: Performed By: #### L 509.1000, L100.0600, L500.3600 #### [facility] [address] [place], [address] CO2 [Moles/Vol] 27.0 mmol/L Normal 21.0-32.0 [facility] Comment on above: Performed By: #### L 509.1000, L100.0600, L500.3600 #### [facility] [address] [place], [address] Creatinine [Mass/Vol] 1.94 mg/dL High 0.70-1.30 [facility] Comment on above: Result Comment: The validity of the calculated GFR GFRAA in patients over 70 years has not been determined. Clinical correlation is essential. Performed By: #### L 509.1000, L100.0600, L500.3600 #### [facility] [address] [place], [address] EST GFR - AA 43 mL/min Low >60 [facility] Comment on above: Result Comment: Afri can Georgian GFR Calc Performed By: #### L 509.1000, L100.0600, L500.3600 #### [facility] [address] [place], [address] GFR/1.73 sq M.predicted among non-blacks MDRD (S/P/Bld) [Vol rate/Area] 35 mL/min/{1.73_m2} Low >60 [facility] Comment on above: Result Comment: Non- GFR Calc Performed By: #### L 509.1000, L100.0600, L500.3600 #### [facility] [address] [place], [address] Glucose [Mass/Vol] 93 mg/dL Normal 74-106 [facility] Comment on above: Performed By: #### L 509.1000, L100.0600, L500.3600 #### [facility] [address] [place], [address] Phosphate [Mass/Vol] 3.4 mg/dL Normal 2.5-4.9 [facility] Comment on above: Performed By: #### L 509.1000, L100.0600, L500.3600 #### [facility] [address] [place], [address] Potassium [Moles/Vol] 4.8 mmol/L Normal 3.5-5.1 [facility] Comment on above: Performed By: #### L 509.1000, L100.0600, L500.3600 #### [facility] [address] [place], [address] Sodium [Moles/Vol] 141 mmol/L Normal 136-145 [facility] Comment on above: Performed By: #### L 509.1000, L100.0600, L500.3600 #### [facility] [address] [place], [address] Urea nitrogen [Mass/Vol] 32 mg/dL High 7-18 [facility] Comment on above: Performed By: #### L 509.1000, L100.0600, L500.3600 #### [facility] [place] [address], [address] [facility] 10-25-2023 CNOV Office Visit (UCWSTR ) RJ LEUNG ([id number]) 1940 M Date Time Provider Department 10/25/23 12:00 PM LAURA GUTIERREZ [facility] During your visit today, we recorded the following information about you: Temperature Pulse Respiration Blood pressure 97.4 degrees 64/minute 20/minute 122/62 Weight 101 kg Laura Gutierrez PA 10/25/2023 12:22 PM Signed s Laura Gutierrez PA 10/25/2023 12:22 PM Signed This note was created using [employer]. Subjective Rj Leung is a 82 year old male. HPI 82-year-old male presents for cough, congestion x 4 days. Patient states that he started getting a cough about 4 to 5 days ago. He states that he feels like he is congested in his chest. He has been coughing up some phlegm. States that he has a runny nose. He states today it seems more congested than runny after taking an [id number] medication. He is unsure what medication he took. No sore throat. No fevers. No sick contacts that he is aware of. He does report he has had a history of pneumonia in the past several years ago. No history of COPD or asthma. No chest pain or shortness of breath. He does report he has some burning in the chest with cough. No other complaint. 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 Other psoriasis 01/29/2013 RECURRENT CELLULITIS 01/22/2007 Subdural hematoma, post-traumatic (HCC) 01/29/2011 01-29-11, resolved post fall off ladder Thrombocytopenia (HCC) 06/07/2012 Varicose veins of lower extremities with other complications 03/11/2011 VENOUS INSUFFICIENCY NOS 12/05/2005 PAST SURGICAL HISTORY Procedure Laterality Date CARDIAC CATH 11/14/2018 COLONOSCOPY FLX DX W/COLLJ SPEC WHEN PFRMD 10/31/2017 Colonoscopy COLONOSCOPY W/BIOPSY SINGLE/MULTIPLE 04/14/06 Sigmoid diverticulitis PAST SURGICAL HISTORY OF 1971 R leg varicose vein removal THYROID FINE NEEDLE ASPIRATION 02/06/06 U/S guided right mid and superior pole THYROID RIGHT FINE NEEDLE ASPIRATION 11/22/08 U/S FNA right thyroid x 2 nodules TONSILLECTOMY AND ADENOIDECTOMY TYMPANOSTOMY LOCAL/TOPICAL ANESTHESIA 01/2014 Left ear. TYMPANOSTOMY LOCAL/TOPICAL ANESTHESIA Left 03/06/2018 replacement ALLERGIES Levaquin [Levofloxacin], Penicillins, and Ultravist [Iopromide] MEDICATIONS ergocalciferol, vitamin D2, (VITAMIN D2 ORAL) Take by mouth. ELIQUIS 5 mg tab(s) multivitamin tablet Take 1 tablet by mouth once daily. FAMILY HISTORY Problem Relation Age of Onset Thyroid Mother Heart Father enlarged heart Arthritis Brother knee replaced Social History Tobacco Use Smoking status: Never Smokeless tobacco: Never Substance Use Topics Alcohol use: No Drug use: No Review of Systems Constitutional: Negative for chills and fever. HENT: Positive for congestion. Negative for sore throat. Respiratory: Positive for cough. Negative for shortness of breath. Gastrointestinal: Negative for diarrhea and vomiting. Objective BP 122/62 Pulse 64 Temp 36.3 ?C (97.4 ?F) Resp 20 Wt 101 kg (222 lb 10.6 oz) SpO2 97% BMI 29.35 kg/m? Physical Exam Vitals and nursing note reviewed. Constitutional: General: He is not in acute distress. Appearance: Normal appearance. He is not toxic-appearing. HENT: Right Ear: Tympanic membrane and ear canal normal. Left Ear: Tympanic membrane and ear canal normal. Nose: Congestion present. Mouth/Throat: Mouth: Mucous membranes are moist. Eyes: Conjunctiva/sclera: Conjunctivae normal. Cardiovascular: Rate and Rhythm: Normal rate and regular rhythm. Pulmonary: Effort: Pulmonary effort is normal. Breath sounds: Examination of the right-lower field reveals rhonchi. Rhonchi present. Comments: Mild rhonchi, cleared with cough. Skin: General: Skin is warm and dry. Neurological: Mental Status: He is alert. Assessment and Plan ASSESSMENT/PLAN: 1. Acute cough - ICD9: 786.2, ICD10: R05.1 - XR CHEST 2V FRONTAL/LAT-no acute abnormality. -Suspect viral illness. -Rx for Tessalon Perles - COVID AND INFLUENZA A/B AND RSV NAAT, ROUTINE -Out of window for Tamiflu and antiviral, but patient would like testing due to exposing others. Diagnosis and treatment plan were discussed and questions were answered to the patient's satisfaction. Pt acknowledged understanding of con (more content not included)... Normal [facility] 10-25-2023 [facility] Telephone (UCTR) RJ LEUNG ([id number]) 1940 M Date Time Provider Department 10/25/23 LAURA GUTIERREZ [facility] During your visit today, we recorded the following information about you: Laura Gutierrez PA 10/25/2023 7:00 PM Signed Please let patient know negative for COVID flu RSV Annabella Bryant LPN 10/25/2023 7:51 PM Signed Patient notified.Annabella Bryant LPN Allergies As of Date: 10/25/2023 Noted Allergy Reaction LEVAQUIN (LEVOFLOXACIN) 01/05/2011 2 - Rash PENICILLINS 04/29/2005 2 - Rash ULTRAVIST (IOPROMIDE) 03/29/2012 14 - Other: See Comments Comments: Pt sneezed twice after contrast injection. Radiologist notified and evaluated patient. No meds were given and was advised to be pre medicated for future tests. Date Reviewed: 10/25/2023 Reviewed by: Nga Bowen MA - Fully Assessed Reason for Visit: Results [95] Prescriptions as of 10/25/2023 - benzonatate (TESSALON PERLE) 100 mg capsule Take 1 capsule by mouth three times a day as needed for cough for up to 7 days. - ergocalciferol, vitamin D2, (VITAMIN D2 ORAL) Take by mouth. - ELIQUIS 5 mg tab(s) - multivitamin tablet Take 1 tablet by mouth once daily. Problem List As Of Date 10/25/2023 Noted Resolved Nontoxic uninodular goiter [E04.1] 12/05/2005 03/13/2014 BPH without obstruction/lower urinary tract sym*12/05/2005 Unspecified venous (peripheral) insufficiency [*12/05/2005 02/27/2017 Edema [R60.9] 12/05/2005 03/21/2012 DIVERTICULITIS SIGMOID-NO HEMORRHAGE [K57.32] 04/14/2006 03/13/2014 Paroxysmal atrial fibrillation (HCC) [I48.0] 01/03/2020 RECURRENT CELLULITIS [L03.90, L02.91] 01/22/2007 03/21/2012 Hematuria [599.7] 04/18/2007 10/15/2012 Hypertrophy of prostate with urinary obstructio*10/18/2007 03/21/2012 Unspecified disorder of prostate [N42.9] 11/12/2007 03/21/2012 Microscopic hematuria [R31.29] 03/01/2010 03/13/2014 Muscular wasting and disuse atrophy, not elsewh*02/21/2011 10/15/2012 Subdural hemorrhage [I62.00] 02/21/2011 03/21/2012 Varicose veins of leg with edema, bilateral [I8*03/11/2011 YAJAIRA (obstructive sleep apnea) on CPAP [G47.33] 04/10/2012 Thrombocytopenia (HCC) [D69.6] 06/07/2012 04/27/2022 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] 12/12/2012 02/27/2017 Lichen planus [L43.9] 12/12/2012 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 02/27/2017 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] 12/12/2012 03/13/2014 Other psoriasis [L40.8] 01/29/2013 02/27/2017 Postinflammatory hyperpigmentation [L81.0] 01/29/2013 02/27/2017 Pruritus [L29.9] 04/30/2013 02/27/2017 Encounter for colorectal cancer screening [Z12.*10/20/2017 03/07/2018 Diverticulosis of large intestine without hemor*10/20/2017 03/07/2018 Overweight (BMI 25.0-29.9) [E66.3] 03/07/2018 04/20/2022 Stage 3b chronic kidney disease (HCC) [N18.32] 04/27/2022 05/11/2023 Essential hypertension [I10] 03/08/2019 Obesity, Class I, BMI 30-34.9 [E66.9] 04/20/2022 Anemia due to stage 3b chronic kidney disease (*04/27/2022 Encounter Status:Closed by ANNABELLA BRYNAT on 10/25/23 Normal [facility] COVID AND INFLUENZA A/B AND RSV NAAT, ROUTINEon 10-25-2023 SARS-CoV-2 (COVID-19) RNA MARIMAR+probe Ql (Unsp spec) COVID 19 RESULT: Not detected The method used is RT-PCR or an equivalent NAAT method. Reference Range (the expected result in uninfected individuals): Not detected INFLUENZA A PCR: Not detected INFLUENZA B PCR: Not detected RSV PCR: Not detected Normal [facility] Comment on above: Performed By: #### C VFLRS ####[facility] [id number] [address] [place] [facility] COVID & INFLUENZA A/B & RSV NAAT, ROUTINEon 10-25-2023 FLUAV RNA MARIMAR+probe Ql (Unsp spec) Not detected Not Detected [facility] FLUBV RNA MARIMAR+probe Ql (Unsp spec) Not detected Not Detected [facility] Interpretation and review of laboratory results Normal [facility] RSV A RNA MARIMAR+probe Ql (Unsp spec) Not detected Not Detected [facility] SARS-CoV-2 (COVID-19) RNA MARIMAR+probe Ql (Resp) Not detected See comment [facility] Comment on above: The method used is R T-PCR or an equivalent NAAT method. Reference Range (the expected result in uninfected individuals): Not detected For upper respirator y tract samples, this test has been authorized by FDA under Emergenecy Use Authorization (EUA). For lower respiratory tract samples, this test was developed and its performance characteristics determined by [facility]'s [facility] ([facility]). It has not been cleared or approved by the FDA. [facility] is regulated under CLIA as qualified to perform high-complexity testing. This test is used for clinical purposes. It should not be regarded as investigational or for research. Test performed by [facility], [facility] [place], [address] [place] [address]. [facility] XR CHEST 2V FRONTAL/LATon XR CHEST 2V FRONTAL/LAT * * *Final Repor t* * * DATE OF EXAM: Oct 25 2023 12:13PM WOX [id number] - XR CHEST 2V FRONTAL/LAT / PROCEDURE REASON: Acute cough * * * * Physician Interpretation * * * * EXAMINATION: CHEST RADIOGRAPH (2 VIEW FRONTAL and LATERAL) CLINICAL HISTORY: Acute cough MQ: XC2_6 EXAM DATE/TIME: 10/25/2023 12:13 PM COMPARISON: Chest x-ray of 10/17/2018 RESULT: Lines, tubes, and devices: None. Lungs and pleura: No consolidation. No lung mass. No pleural effusion. No pneumothorax. Cardiomediastinal silhouette: Normal cardiomediastinal silhouette. Bones and soft tissues: Unremarkable. IMPRESSION: No acute radiographic abnormality. Patrol Mother: GRICELDA Transcribe Date/Time: Oct 25 2023 12:14P Dictated by : JEREMÍAS SOLIS MD This examination was interpreted and the report reviewed and electronically signed by: JEREMÍAS SOLIS MD on Oct 25 2023 12:15PM EST [id number] Normal [facility] XR Chest PA and Lateralon IMPRESSION: No acute radiographic abnormality. Patrol Mother: GRICELDA Transcribe Date/Time: Oct 25 2023 12:14P Dictated by : JEREMÍAS SOLIS MD This examination was interpreted and the report reviewed and electronically signed by: JEREMÍAS SOLIS MD on Oct 25 2023 12:15PM [facility] DIVISION OF RADIOLOGY * * *Final Report* * * DATE OF EXAM: Oct 25 2023 12:13PM WOX [id number] - XR CHEST 2V FRONTAL/LAT / PROCEDURE REASON: Acute cough * * * * Physician Interpretation * * * * EXAMINATION: CHEST RADIOGRAPH (2 VIEW FRONTAL & LATERAL) CLINICAL HISTORY: Acute cough MQ: XC2_6 EXAM DATE/TIME: 10/25/2023 12:13 PM COMPARISON: Chest x-ray of 10/17/2018 RESULT: Lines, tubes, and devices: None. Lungs and pleura: No consolidation. No lung mass. No pleural effusion. No pneumothorax. Cardiomediastinal silhouette: Normal cardiomediastinal silhouette. Bones and soft tissues: Unremarkable. DIVISION OF RADIOLOGY Provider, [facility] - 10/25/2023 * * *Final Report* * * DATE OF EXAM: Oct 25 2023 12:13PM WOX [id number] - XR CHEST 2V FRONTAL/LAT / PROCEDURE REASON: Acute cough * * * * Physician Interpretation * * * * EXAMINATION: CHEST RADIOGRAPH (2 VIEW FRONTAL & LATERAL) CLINICAL HISTORY: Acute cough MQ: XC2_6 EXAM DATE/TIME: 10/25/2023 12:13 PM COMPARISON: Chest x-ray of 10/17/2018 RESULT: Lines, tubes, and devices: None. Lungs and pleura: No consolidation. No lung mass. No pleural effusion. No pneumothorax. Cardiomediastinal silhouette: Normal cardiomediastinal silhouette. Bones and soft tissues: Unremarkable. IMPRESSION IMPRESSION: No acute radiographic abnormality. Patrol Mother: PSCB Transcribe Date/Time: Oct 25 2023 12:14P Dictated by : JEREMÍAS SOLIS MD This examination was interpreted and the report reviewed and electronically signed by: JEREMÍAS SOLIS MD on Oct 25 2023 12:15PM [facility] Radiology Study observation (narrative) Howie villalobos [facility] XR Chest PA and LateralOrder ed By: [facility] Provider on 10-25-[address] [facility] XR Knee - left 4 Viewson IMPRESSION: 1. There is narrowing of the medial lateral compartments of each knee. There is chondrocalcinosis noted in the medial and lateral compartments of each knee. This is compatible with calcium pyrophosphate deposition disease. Also superimposed degenerative changes. 2. No acute pathology identified Patrol Mother: PSCB Transcribe Date/Time: Jun 17 2023 12:09P Dictated by : NIYA JAIME DO This examination was interpreted and the report reviewed and electronically signed by: NIYA JAIME DO on Jun 17 2023 12:15PM [facility] OF RADIOLOGY * * *Final Report* * * DATE OF EXAM: Jun 17 2023 10:38AM WOX 5202 - XR KNEE 4V AP/PA BOTH+LAT/RITU LT / PROCEDURE REASON: Acute pain of left knee * * * * Physician Interpretation * * * * EXAM(s): XR KNEE 4V AP/PA BOTH+LAT/RITU LT EXAM DATE/TIME: 06/17/2023 10:38 AM HISTORY: 82 years old Clinical information: Acute pain of left knee Intermittent posterior left knee pain that has increased over the last 3 days without injury. TECHNIQUE: Images: XR KNEE 4V AP/PA BOTH+LAT/RITU LT Comparison: RIGHT knee 10/23/2016. RESULT: Findings: Bilateral findings: There is chondrocalcinosis in the medial and lateral compartments of both knees. There is marked narrowing of the medial compartment of each knee Right :No fractures or dislocations are seen. Left :No fractures or dislocations are seen. Moderate narrowing of the patellofemoral joint. Chondrocalcinosis chondrocalcinosis calcium pyrophosphate alcohol DIVISION OF RADIOLOGY Provider, Aamir Mcconnell - 06/17/2023 * * *Final Report* * * DATE OF EXAM: Jun 17 2023 10:38AM WOX 5202 - XR KNEE 4V AP/PA BOTH+LAT/RITU LT / PROCEDURE REASON: Acute pain of left knee * * * * Physician Interpretation * * * * EXAM(s): XR KNEE 4V AP/PA BOTH+LAT/RITU LT EXAM DATE/TIME: 06/17/2023 10:38 AM HISTORY: 82 years old Clinical information: Acute pain of left knee Intermittent posterior left knee pain that has increased over the last 3 days without injury. TECHNIQUE: Images: XR KNEE 4V AP/PA BOTH+LAT/RITU LT Comparison: RIGHT knee 10/23/2016. RESULT: Findings: Bilateral findings: There is chondrocalcinosis in the medial and lateral compartments of both knees. There is marked narrowing of the medial compartment of each knee Right :No fractures or dislocations are seen. Left :No fractures or dislocations are seen. Moderate narrowing of the patellofemoral joint. Chondrocalcinosis chondrocalcinosis calcium pyrophosphate alcohol IMPRESSION IMPRESSION: 1. There is narrowing of the medial lateral compartments of each knee. There is chondrocalcinosis noted in the medial and lateral compartments of each knee. This is compatible with calcium pyrophosphate deposition disease. Also superimposed degenerative changes. 2. No acute pathology identified Patrol Mother: GRICELDA Transcribe Date/Time: Jun 17 2023 12:09P Dictated by : NIYA JAIME DO This examination was interpreted and the report reviewed and electronically signed by: NIYA JAIME DO on Jun 17 2023 12:15PM [facility] Radiology Study observation (narrative) [facility] XR Knee - left 4 ViewsOrdere d By: Ccf Provider on 06-17-[address] [facility] XR TOE AP/LAT/OBL LEFTon [facility] XR Toes - left 3 Viewson IMPRESSION: Acute fifth proximal phalanx fracture as described. Patrol [facility] Transcribe Date/Time: May 10 2022 11:30A Dictated by : JOY WOLFE MD This examination was interpreted and the report reviewed and electronically signed by: JOY WOLFE MD on May 10 2022 11:31AM [facility] DIVISION OF RADIOLOGY * * *Final Report* * * DATE OF EXAM: May 10 2022 11:18AM WOX 5268 - XR TOE 3V AP/LAT/OBL LT / PROCEDURE REASON: Toe injury, left, initial encounter * * * * Physician Interpretation * * * * TITLE: XR TOE 3V AP/LAT/OBL LT CLINICAL INDICATION: Toe injury TECHNIQUE: 3 view radiographic study of the left fifth toe COMPARISON: Radiograph dated April 25, 2016 FINDINGS: There is an acute, oblique, mildly impacted fracture of the proximal shaft of the fifth proximal phalanx with surrounding soft tissue swelling. DIVISION OF RADIOLOGY Provider, [facility] - 05/10/2022 * * *Final Report* * * DATE OF EXAM: May 10 2022 11:18AM WOX 5268 - XR TOE 3V AP/LAT/OBL LT / PROCEDURE REASON: Toe injury, left, initial encounter * * * * Physician Interpretation * * * * TITLE: XR TOE 3V AP/LAT/OBL LT CLINICAL INDICATION: Toe injury TECHNIQUE: 3 view radiographic study of the left fifth toe COMPARISON: Radiograph dated April 25, 2016 FINDINGS: There is an acute, oblique, mildly impacted fracture of the proximal shaft of the fifth proximal phalanx with surrounding soft tissue swelling. IMPRESSION IMPRESSION: Acute fifth proximal phalanx fracture as described. Patrol Mother[facility] Transcribe Date/Time: May 10 2022 11:30A Dictated by : JOY WOLFE MD This examination was interpreted and the report reviewed and electronically signed by: JOY WOLFE MD on May 10 2022 11:31AM EST [facility] Radiology Study observation (narrative) [facility] XR Toes - left 3 ViewsOrdere d By: Cc Provider on 05-10-[address] [facility] US THYROID/PARATHYROIDon US THYROID/PARATHYROID * * *Final Report * * * DATE OF EXAM: Apr 16 2021 3:48PM AIDE 1048 - US THYROID/PARATHYROID / PROCEDURE REASON: E04.1-Thyroid nodule * * * * Physician Interpretation * * * * EXAMINATION: THYROID ULTRASOUND CLINICAL HISTORY: Thyroid nodule TECHNIQUE: Sonography and Doppler imaging of the thyroid was performed. Images were obtained and stored in a permanent archive. MQ: [id number] COMPARISON: None. RESULT: Right Lobe: 4.8 x 1.8 x 2.0 cm; homogeneous echogenicity, expected vascular flow. Left Lobe: 4.1 x 1.7 x 1.6 cm; homogeneous echogenicity, expected vascular flow. Isthmus: 0.2 cm The most suspicious thyroid nodule(s) (up to four) as below: NODULE 1: Location: Right lower pole Size: 1.5 x 1.3 x 1.5 cm Characteristics: Composition: Solid or almost completely solid, 2 points Echogenicity: Isoechoic, 1 point Shape: Umgyi-mqnt-uozo, 0 points Margin: Ill-defined, 0 points Echogenic foci (add points for all that apply): None, 0 points Internal vascularity: present Interval growth: No prior available for comparison TI-RADS Category: TR3 ACR Recommendation: TI-RADS 3 nodule. Follow-up imaging at 1, 3 and 5 years is recommended. NODULE 2: Location: Right isthmus Size: 1.8 x 1.0 x 1.3 cm Characteristics: Composition: Solid or almost completely solid, 2 points Echogenicity: Isoechoic, 1 point Shape: Vdbpz-ddji-muun, 0 points Margin: Ill-defined, 0 points Echogenic foci (add points for all that apply): None, 0 points Internal vascularity: absent Interval growth: No prior available for comparison TI-RADS Category: TR3 ACR Recommendation: TI-RADS 3 nodule. Follow-up imaging at 1, 3 and 5 years is recommended. IMPRESSION: Thyroid nodule(s) is/are present. Surveillance imaging is recommended for one or more nodules as detailed in the synoptic report. TI-RADS Category: TR3 ACR Recommendation: TI-RADS 3 nodule. Follow-up imaging at 1, 3 and 5 years is recommended. ACR recommendations are strictly based on the size and imaging appearance at the time of the exam and do not consider stability or previous biopsy results. Patrol Mother: GRICELDA Transcribe Date/Time: Apr 16 2021 3:58P Dictated by : RICHY BAUER MD This examination was interpreted and the report reviewed and electronically signed by: RICHY BAUER MD on Apr 16 2021 4:01PM EST [id number] [facility] Coumadin Management: Koby Sheets 05-12-2017 INR Coag RelTime (Bld) 2 to 3 Invalid Interpretation Code [facility] Work Phone: INR Coag RelTime (Bld) Outside lab Invalid Interpretation Code [facility] Work Phone: [phone] INR Coag RelTime (PPP) 2.6 {INR} Invalid Interpretation Code [facility] Work Phone: [phone] Prothrombin time (PT) Coag time (PPP) 26.3 s Invalid Interpretation Code [facility] Work Phone: [phone] Coumadin Management: [employer] 04-20-2017 INR Coag RelTime (Bld) 2 to 3 Invalid Interpretation Code [facility] Work Phone: [phone] INR Coag RelTime (Bld) Outside lab Invalid Interpretation Code [facility] Work Phone: [phone] INR Coag RelTime (PPP) 2.6 {INR} Invalid Interpretation Code [facility] Work Phone: [phone] Prothrombin time (PT) Coag time (PPP) 25.4 s Invalid Interpretation Code [facility] Work Phone: [phone] Coumadin Management: [employer] 04-04-2017 INR Coag RelTime (Bld) Outside lab Invalid Interpretation Code [facility] Work Phone: [phone] INR Coag RelTime (PPP) 1.8 {INR} Invalid Interpretation Code [facility] Work Phone: [phone] international normalized ratio (INR) range 2 to 3 Invalid Interpretation Code [facility] Work Phone: [phone] Prothrombin time (PT) Coag time (PPP) 17.9 s Invalid Interpretation Code [facility] Work Phone: [phone] Coumadin Management: [employer] 03-20-2017 INR Coag RelTime (Bld) Outside lab Invalid Interpretation Code [facility] Work Phone: [phone] INR Coag RelTime (PPP) 1.9 {INR} Invalid Interpretation Code [facility] Work Phone: [phone] international normalized ratio (INR) range 2 to 3 Invalid Interpretation Code [facility] Work Phone: [phone] Prothrombin time (PT) Coag time (PPP) 19.7 s Invalid Interpretation Code [facility] Work Phone: [phone] INR Coag RelTime (Bld) Outside lab Invalid Interpretation Code [facility] Work Phone: [phone] INR Coag RelTime (PPP) 1.9 {INR} Invalid Interpretation Code [facility] Work Phone: [phone] international normalized ratio (INR) range 2 to 3 Invalid Interpretation Code [facility] Work Phone: [phone] Prothrombin time (PT) Coag time (PPP) 19.7 s Invalid Interpretation Code [facility] Work Phone: [phone] Coumadin Management: Koby n [employer] 02-14-2017 INR Coag RelTime (Bld) Outside lab [facility] Work Phone: [phone] INR Coag RelTime (PPP) 2.2 {INR} [facility] Work Phone: [phone] international normalized ratio (INR) range 2 to 3 [facility] Work Phone: [phone] Prothrombin time (PT) Coag time (PPP) 22.2 s [facility] Work Phone: [phone] Coumadin Management: Koby simon [place] 01-23-2017 INR Coag RelTime (Bld) Outside lab [facility] Work Phone: [phone] INR Coag RelTime (PPP) 2.5 {INR} [facility] Work Phone: [phone] international normalized ratio (INR) range 2 to 3 [facility] Work Phone: [phone] Prothrombin time (PT) Coag time (PPP) 25.4 s [facility] Work Phone: [phone] Coumadin Management: Koby simon [place] 01-06-2017 INR Coag RelTime (Bld) Outside lab [facility] Work Phone: [phone] INR Coag RelTime (PPP) 3.2 {INR} [facility] Work Phone: [phone] international normalized ratio (INR) range 2 to 3 [facility] Work Phone: [phone] Prothrombin time (PT) Coag time (PPP) 32.9 s [facility] Work Phone: Coumadin Management: Koby Sheets 12-23-2016 INR Coag RelTime (Bld) Outside lab Invalid Interpretation Code [facility] Work Phone: [phone] INR Coag RelTime (PPP) 3.0 {INR} [facility] Work Phone: [phone] INR in blood by coagulation 2 to 3 Invalid Interpretation Code [facility] Work Phone: [phone] INR in blood by coagulation 3.0 {INR} Invalid Interpretation Code [facility] Work Phone: [phone] international normalized ratio (INR) range 2 to 3 [facility] Work Phone: [phone] Prothrombin time (PT) Coag time (PPP) 30.4 s Invalid Interpretation Code [facility] Work Phone: [phone] Clinical Lists Update: Prelo document management specialist 12-22-2016 Albumin mass conc 3.9 g/dL Invalid Interpretation Code [facility] Work Phone: [phone] Alkaline phosphatase (ALP) 52 U/L Invalid Interpretation Code [facility] Work Phone: [phone] ALP enzyme act/vol (Bld) 52 U/L Invalid Interpretation Code [facility] Work Phone: [phone] ALT enzyme act/vol 8 U/L Invalid Interpretation Code [facility] Work Phone: [phone] AST enzyme act/vol 12 U/L Invalid Interpretation Code [facility] Work Phone: [phone] Bilirubin mass conc 0.5 mg/dL Invalid Interpretation Code [facility] Work Phone: [phone] Bilirubin.direct mass conc 0.16 mg/dL Invalid Interpretation Code [facility] Work Phone: [phone] Cholesterol in HDL mass conc 44 mg/dL Invalid Interpretation Code [facility] Work Phone: [phone] Cholesterol in LDL mass conc 90 mg/dL Invalid Interpretation Code [facility] Work Phone: [phone] Cholesterol mass conc 156 mg/dL Invalid Interpretation Code [facility] Work Phone: [phone] Lipoprotein.pre-beta mass conc 22 mg/dL Invalid Interpretation Code [facility] Work Phone: [phone] Protein mass conc 6.4 g/dL Invalid Interpretation Code [facility] Work Phone: [phone] Triglyceride mass conc 112 mg/dL Invalid Interpretation Code [facility] Work Phone: [phone] External Other: Preferred Me thod of Contacton 12-20-2016 methcontact secmsg Invalid Interpretation Code [facility] Work Phone: [phone] Patient's prefered method of contact secmsg Invalid Interpretation Code [facility] Work Phone: Office Visiton 12-20-2016 Dietary management education, guidance, and counseling (procedure) yes Invalid Interpretation Code [facility] Work Phone: Documentation of current medications (procedure) Done Invalid Interpretation Code [facility] Work Phone: Fall risk assessment No Invalid Interpretation Code [facility] Work Phone: Protein mass conc Done Invalid Interpretation Code [facility] Work Phone: [phone] Clinical Lists Update: Prelo document management specialist 12-19-2016 Left ventricular Ejection fraction 60 % Invalid Interpretation Code [facility] Work Phone: [phone] Tobacco smoking status NEIS Tobacco smoking status NHIS Invalid Interpretation Code [facility] Work Phone: [phone] Tobacco smoking status NHIS Never smoker Invalid Interpretation Code [facility] Work Phone: [phone] Tobacco use [facility] Never smoker Invalid Interpretation Code [facility] Work Phone: [phone] Ref Labon 12-08-2016 Ref Lab Lab [facility] Comment on above: Performed By: #### [id number] ####GABRIEL [employer] [id number] [place] [address] Test Name PT [facility] Comment on above: Performed By: #### [id number] ####GABRIEL [employer] [id number] [place] [address] PTon 12-07-2016 INR Coag RelTime (PPP) 2.9 {INR} High 1.0-1.2 [facility] Comment on above: Result Comment: INR Recommended Therapeuptic Ranges: Prophylaxis/treatment of DVT and PE?2.0-3.0 Prevention of systemic embolism?.2.0-3.0 Mechanical prosthetic values?2.5-3.5 CRITICAL VALUES?.>4.0 Performed By: #### [id number] ####GABRIEL Hematology [employer] [id number] [place] [address] Prothrombin time (PT) Coag time (PPP) 29.9 second(s) High 11.6-14.6 [facility] Comment on above: Performed By: #### [id number] ####GABRIEL [facility] [employer] [id number] [place] [address] Vital Signs Date Time Vital Sign Value Performing Clinician Facility 12-02-2024 13:01-0400 Body temperature 97.9 [degF] Dr. Oskar Leger MD Work Phone: [facility] 12-02-2024 13:01-0400 Diastolic blood pressure 71 mm[Hg] Dr. Oskar Leger MD Work Phone: [facility] 12-02-2024 13:01-0400 Heart rate 84 /min Dr. Oskar Leger MD Work Phone: [facility] 12-02-2024 13:01-0400 Respiratory rate 16 /min Dr. Oskar Leger MD Work Phone: [facility] 12-02-2024 13:01-0400 SaO2% (BldA) [Mass fraction] 100 % Dr. Oskar Leger MD Work Phone: [facility] 12-02-2024 13:01-0400 Systolic blood pressure 149 mm[Hg] Dr. Oskar Leger MD Work Phone: [facility] 12-02-2024 09:14-0400 Body height 187.[address] Oskar Leger MD Work Phone: [facility] 12-02-2024 09:14-0400 Body mass index (BMI) [Ratio] 27.4 kg/m2 Dr. Oskar Leger MD Work Phone: [facility] 12-02-2024 09:14-0400 Body weight 97.[address] Oskar Leger MD Work Phone: [facility] 12-01-2024 11:10-0400 Body mass index (BMI) [Ratio] 28.45 kg/m2 Ermias Moomaw RN [employer]MEDICAL LANGUAGE SPECIALIST Work Phone: [facility] 12-01-2024 11:10-0400 Body temperature 98.8 [degF] Emrias Moomaw RN SPINE.MEDICAL LANGUAGE SPECIALIST Work Phone: [facility] 12-01-2024 11:10-0400 Body weight 97.8 kg Ermias Moomaw RN SPINE.MEDICAL LANGUAGE SPECIALIST Work Phone: [facility] 12-01-2024 11:10-0400 Diastolic blood pressure 70 mm[Hg] Ermias Moomaw RN SPINE.MEDICAL LANGUAGE SPECIALIST Work Phone: [facility] 12-01-2024 11:10-0400 Heart rate 80 /min Ermias Moomaw RN SPINE.MEDICAL LANGUAGE SPECIALIST Work Phone: [facility] 12-01-2024 11:10-0400 Respiratory rate 16 /min Ermias Moomaw RN SPINE.MEDICAL LANGUAGE SPECIALIST Work Phone: [facility] 12-01-2024 11:10-0400 SaO2% (BldA) [Mass fraction] 96 % Ermias Moomaw RN SPINE.MEDICAL LANGUAGE SPECIALIST Work Phone: [facility] 12-01-2024 11:10-0400 Systolic blood pressure 124 mm[Hg] Ermias Moomaw RN SPINE.MEDICAL LANGUAGE SPECIALIST Work Phone: [facility] 11-08-2024 11:16-0400 Body temperature 97.6 [degF] Dr. Oskar Leger MD Work Phone: [facility] 11-08-2024 11:16-0400 Body weight 99.[address] Oskar Leger MD Work Phone: [phone] [place] [address] 11-08-2024 11:16-0400 Diastolic blood pressure 76 mm[Hg] Dr. Oskar Leger MD Work Phone: [phone] [place] [address] 11-08-2024 11:16-0400 Heart rate 92 /min Dr. Oskar Leger MD Work Phone: [phone] [place] [address] 11-08-2024 11:16-0400 Respiratory rate 16 /min Dr. Oskar Leger MD Work Phone: [phone] [place] [address] 11-08-2024 11:16-0400 SaO2% (BldA) [Mass fraction] 98 % Dr. Oskar Leger MD Work Phone: [phone] [place] [address] 11-08-2024 11:16-0400 Systolic blood pressure 154 mm[Hg] Dr. Oskar Leger MD Work Phone: [facility] 10-17-2024 11:28-0400 Body mass index (BMI) [Ratio] 29.03 kg/m2 Tien Joiner MD Work Phone: [facility] 10-17-2024 11:28-0400 Body temperature 97.2 [degF] Tien Joiner MD Work Phone: [facility] 10-17-2024 11:28-0400 Body weight 99.8 kg Tien Joiner MD Work Phone: [facility] 10-17-2024 11:28-0400 Diastolic blood pressure 72 mm[Hg] Tien Joiner MD Work Phone: [facility] 10-17-2024 11:28-0400 Heart rate 76 /min Tien Joiner MD Work Phone: [facility] 10-17-2024 11:28-0400 Respiratory rate 16 /min Tien Joiner MD Work Phone: [facility] 10-17-2024 11:28-0400 SaO2% (BldA) [Mass fraction] 99 % Tien Joiner MD Work Phone: [facility] 10-17-2024 11:28-0400 Systolic blood pressure 137 mm[Hg] Tien Joiner MD Work Phone: [facility] 05-25-2024 10:15-0500 Diastolic blood pressure 67 mm[Hg] Oskar Leger MD Work Phone: [facility] Comment on above: BP [facility] 05-25-2024 10:15-0500 Systolic blood pressure 129 mm[Hg] Oskar Leger MD Work Phone: [facility] Comment on above: BP [facility] 05-25-2024 09:38-0500 Body mass index (BMI) [Ratio] 29.7 kg/m2 Oskar Leger MD Work Phone: [facility] 05-25-2024 09:38-0500 Body weight 102.1 kg Oskar Leger MD Work Phone: [facility] 05-25-2024 09:38-0500 Heart rate 64 /min Oskar Leger MD Work Phone: [facility] 05-25-2024 09:38-0500 Respiratory rate 16 /min Oskar Leger MD Work Phone: [facility] 05-20-2024 12:47-0500 Diastolic blood pressure 64 mm[Hg] Oskar Leger MD Work Phone: [facility] 05-20-2024 12:47-0500 Systolic blood pressure 128 mm[Hg] Oskar Leger MD Work Phone: [facility] 05-20-2024 12:23-0500 Heart rate 70 /min Oskar Leger MD Work Phone: [facility] 05-20-2024 12:13-0500 Body height 185.4 cm Oskar Leger MD Work Phone: [facility] 05-20-2024 12:13-0500 Body mass index (BMI) [Ratio] 29.12 kg/m2 Oskar Leger MD Work Phone: [facility] 05-20-2024 12:13-0500 Body temperature 98.2 [degF] Oskar Leger MD Work Phone: [facility] 05-20-2024 12:13-0500 Body weight 100.1 kg Oskar Leger MD Work Phone: [facility] 05-05-2024 14:40-0500 Body mass index (BMI) [Ratio] 29.35 kg/m2 Jagdish Bender RN SPINE.MEDICAL LANGUAGE SPECIALIST Work Phone: [facility] 05-05-2024 14:40-0500 Body temperature 97.2 [degF] Jagdish Bender RN SPINE.MEDICAL LANGUAGE SPECIALIST Work Phone: [facility] 05-05-2024 14:40-0500 Body weight 101 kg Jagdish Bender RN SPINE.MEDICAL LANGUAGE SPECIALIST Work Phone: [facility] 05-05-2024 14:40-0500 Diastolic blood pressure 68 mm[Hg] Jagdish Bender RN SPINE.MEDICAL LANGUAGE SPECIALIST Work Phone: [facility] 05-05-2024 14:40-0500 Heart rate 64 /min Jagdish Bender RN SPINE.MEDICAL LANGUAGE SPECIALIST Work Phone: [facility] 05-05-2024 14:40-0500 Respiratory rate 16 /min Jagdish Bender RN SPINE.MEDICAL LANGUAGE SPECIALIST Work Phone: [facility] 05-05-2024 14:40-0500 SaO2% (BldA) [Mass fraction] 98 % Jagdish Bender RN SPINE.MEDICAL LANGUAGE SPECIALIST Work Phone: [facility] 05-05-2024 14:40-0500 Systolic blood pressure 122 mm[Hg] Jagdish Bender RN SPINE.MEDICAL LANGUAGE SPECIALIST Work Phone: [facility] 02-23-2024 10:16-0400 Body mass index (BMI) [Ratio] 28.22 kg/m2 Jagdish Bender RN SPINE.MEDICAL LANGUAGE SPECIALIST Work Phone: [facility] 02-23-2024 10:16-0400 Body temperature 97.39 [degF] Jagdish Pendlebury RN SPINE.MEDICAL LANGUAGE SPECIALIST Work Phone: [facility] 02-23-2024 10:16-0400 Body weight 97.1 kg [facility] SPINE.MEDICAL LANGUAGE SPECIALIST Work Phone: [facility] 02-23-2024 10:16-0400 Diastolic blood pressure 75 mm[Hg] Jagdish Pendlebury RN SPINE.MEDICAL LANGUAGE SPECIALIST Work Phone: [facility] 02-23-2024 10:16-0400 Heart rate 68 /min Jagdish Pendlebury RN SPINE.MEDICAL LANGUAGE SPECIALIST Work Phone: [facility] 02-23-2024 10:16-0400 Respiratory rate 18 /min [facility] SPINE.MEDICAL LANGUAGE SPECIALIST Work Phone: [facility] 02-23-2024 10:16-0400 SaO2% (BldA) [Mass fraction] 99 % [facility] SPINE.MEDICAL LANGUAGE SPECIALIST Work Phone: [facility] 02-23-2024 10:16-0400 Systolic blood pressure 145 mm[Hg] Jagdish Pendlebury RN SPINE.MEDICAL LANGUAGE SPECIALIST Work Phone: [facility] 02-15-2024 10:24-0400 Body mass index (BMI) [Ratio] 28.77 kg/m2 Tien Joiner MD Work Phone: [facility] 02-15-2024 10:24-0400 Body temperature 97 [degF] Tien Joiner MD Work Phone: [facility] 02-15-2024 10:24-0400 Body weight 99 kg Tien Joiner MD Work Phone: [facility] 02-15-2024 10:24-0400 Diastolic blood pressure 71 mm[Hg] Tien Joiner MD Work Phone: [facility] 02-15-2024 10:24-0400 Heart rate 57 /min Tien Joiner MD Work Phone: [facility] 02-15-2024 10:24-0400 Respiratory rate 18 /min Tien Joiner MD Work Phone: [facility] 02-15-2024 10:24-0400 SaO2% (BldA) [Mass fraction] 99 % Tien Joiner MD Work Phone: [facility] 02-15-2024 10:24-0400 Systolic blood pressure 144 mm[Hg] Tien Joiner MD Work Phone: [facility] 10-25-2023 11:51-0400 Body mass index (BMI) [Ratio] 29.35 kg/m2 Krislyn Aberegg PA Work Phone: [facility] 10-25-2023 11:51-0400 Body temperature 97.39 [degF] Krislyn Aberegg PA Work Phone: [facility] 10-25-2023 11:51-0400 Body weight 101 kg Krislyn Aberegg PA Work Phone: [facility] 10-25-2023 11:51-0400 Diastolic blood pressure 62 mm[Hg] Krislyn Aberegg PA Work Phone: [facility] 10-25-2023 11:51-0400 Heart rate 64 /min Krislyn Aberegg PA Work Phone: [facility] 10-25-2023 11:51-0400 Respiratory rate 20 /min Krislyn Aberegg PA Work Phone: [facility] 10-25-2023 11:51-0400 SaO2% (BldA) [Mass fraction] 97 % Krislyn Aberegg PA Work Phone: [facility] 10-25-2023 11:51-0400 Systolic blood pressure 122 mm[Hg] Krislyn Aberegg PA Work Phone: [facility] 05-11-2023 12:06-0500 Body height 185.5 cm Bina Chu APRN.CNP Work Phone: [facility] 05-11-2023 12:06-0500 Body weight 97.98 kg Bina Older RN SPINE[employer]MEDICAL LANGUAGE SPECIALIST Work Phone: [facility] 05-11-2023 12:06-0500 Diastolic blood pressure 72 mm[Hg] Bina Older RN SPINE.MEDICAL LANGUAGE SPECIALIST Work Phone: [facility] 05-11-2023 12:06-0500 Heart rate 60 /min Bina Older RN SPINE.MEDICAL LANGUAGE SPECIALIST Work Phone: [facility] 05-11-2023 12:06-0500 Respiratory rate 18 /min Bina Older RN SPINE.MEDICAL LANGUAGE SPECIALIST Work Phone: [facility] 05-11-2023 12:06-0500 SaO2% (BldA) [Mass fraction] 96 % Bina Older RN SPINE.MEDICAL LANGUAGE SPECIALIST Work Phone: [facility] 05-11-2023 12:06-0500 Systolic blood pressure 140 mm[Hg] Bina Older RN SPINE.MEDICAL LANGUAGE SPECIALIST Work Phone: [facility] 04-22-2023 10:51-0500 Body temperature 100.4 [degF] Tien Joiner MD Work Phone: [facility] 04-22-2023 10:51-0500 Body weight 99.79 kg Tien Joiner MD Work Phone: [facility] 04-22-2023 10:51-0500 Diastolic blood pressure 72 mm[Hg] Tien Joiner MD Work Phone: [facility] 04-22-2023 10:51-0500 Heart rate 92 /min Tien Joiner MD Work Phone: [facility] 04-22-2023 10:51-0500 Respiratory rate 18 /min Tien Joiner MD Work Phone: [facility] 04-22-2023 10:51-0500 SaO2% (BldA) [Mass fraction] 94 % Tien Joiner MD Work Phone: [facility] 04-22-2023 10:51-0500 Systolic blood pressure 162 mm[Hg] Tien Joiner MD Work Phone: [facility] 11-10-2022 09:15-0400 Body temperature 98.01 [degF] Jagdish [facility] RN SPINE.MEDICAL LANGUAGE SPECIALIST Work Phone: [facility] 11-10-2022 09:15-0400 Body weight 98.97 kg [facility] RN SPINE.MEDICAL LANGUAGE SPECIALIST Work Phone: [facility] 11-10-2022 09:15-0400 Diastolic blood pressure 68 mm[Hg] [facility] RN SPINE.MEDICAL LANGUAGE SPECIALIST Work Phone: [facility] 11-10-2022 09:15-0400 Systolic blood pressure 130 mm[Hg] [facility] RN SPINE.MEDICAL LANGUAGE SPECIALIST Work Phone: [facility] 05-10-2022 09:47-0500 Body temperature 97.81 [degF] Neha Athy PA-C Work Phone: [facility] 05-10-2022 09:47-0500 Body weight 101.33 kg Neha Athy PA-C Work Phone: [facility] 05-10-2022 09:47-0500 Diastolic blood pressure 68 mm[Hg] Neha Athy PA-C Work Phone: [facility] 05-10-2022 09:47-0500 Heart rate 82 /min Neha Athy PA-C Work Phone: [facility] 05-10-2022 09:47-0500 Respiratory rate 16 /min Neha Athy PA-C Work Phone: [facility] 05-10-2022 09:47-0500 SaO2% (BldA) [Mass fraction] 97 % Neha Athy PA-C Work Phone: [facility] 05-10-2022 09:47-0500 Systolic blood pressure 130 mm[Hg] Neha Athy PA-C Work Phone: [facility] 04-20-2022 13:08-0500 Body height 185.4 cm Osakr Leger MD Work Phone: [facility] 04-20-2022 13:08-0500 Body temperature 96.4 [degF] Oskar Leger MD Work Phone: [facility] 04-20-2022 13:08-0500 Body weight 104.33 kg Oskar Leger MD Work Phone: [facility] 04-20-2022 13:08-0500 Diastolic blood pressure 60 mm[Hg] Oskar Leger MD Work Phone: [facility] 04-20-2022 13:08-0500 Heart rate 60 /min Oskar Leger MD Work Phone: [facility] 04-20-2022 13:08-0500 Respiratory rate 12 /min Oskar Leger MD Work Phone: [facility] 04-20-2022 13:08-0500 Systolic blood pressure 124 mm[Hg] Oskar Leger MD Work Phone: [facility] 12-20-2016 12:13-0400 BMI (Body Mass Index) 29.12 kg/m2 Yaneth Watson [facility], [facility] Work Phone: 12-20-2016 12:13-0400 BP Diastolic 60 mm[Hg] Yaneth Watson [facility], [facility] Work Phone: 12-20-2016 12:13-0400 BP Systolic 128 mm[Hg] Yaneth Watson [facility], [facility] Work Phone: 12-20-2016 12:13-0400 Height 190.5 cm Yaneth Watson [facility], [facility] Work Phone: 12-20-2016 12:13-0400 Pulse (Heart Rate) 60 /min Yaneth Watson [facility], [facility] Work Phone: 12-20-2016 12:13-0400 Respiratory Rate 18 /min Yaneth Watson [facility], [facility] Work Phone: 12-20-2016 12:13-0400 Weight 105.69 kg Yaneth Watson [facility], [facility] Work Phone: Encounters Encounter Date Encounter Type Care Provider Facility Start: 12-02-2024 End: 12-02-2024 Emergency department patient visit Dr. Oskar Leger MD Work Phone: -Emergency Department Work Phone: Start: 12-01-2024 End: 12-01-2024 Patient encounter procedure Ermias Elizabeth RN SPINE.MEDICAL LANGUAGE SPECIALIST Work Phone: [facility] Comment on above: Viral URI (Primary D x) Start: 11-08-2024 End: 11-08-2024 Patient encounter procedure Sera BACA -[facility] Work Phone: Start: 11-08-2024 End: 11-08-[address] Oskar Leger MD Work Phone: [facility] Work Phone: Start: 11-06-2024 End: 11-06-[address] Oskar Leger MD Work Phone: [facility] Work Phone: Start: 11-06-2024 End: 11-06-[address] Keshia Campbell DO -Laboratory Work Phone: Start: 11-06-2024 End: 11-06-2024 ambulatory Oskar Leger Facility:[facility] Start: 10-17-2024 End: 10-17-2024 Office outpatient visit 25 minutes Tien Joiner MD Work Phone: [facility] Comment on above: Acute non-recurrent sinusitis, unspecified location (Primary Dx) Start: 10-17-2024 End: 10-17-2024 ambulatory TIEN JOINER Facility:[facility] Start: 05-25-2024 End: 05-25-2024 Patient encounter procedure Oskar Leger MD Work Phone: [facility] [place] Comment on above: Essential hypertensi on (Primary Dx) Start: 05-25-2024 End: 05-25-2024 ambulatory OSKAR LEGER Facility:[facility] Start: 05-23-2024 End: 05-23-2024 ambulatory Emmie Rome RN [employer] Comment on above: EDDIE CONTEH RN ( ED Utilization review per request of payer) Start: 05-21-2024 End: 05-21-2024 Emergency department patient visit OSKAR LEGER Facility:[facility] Start: 05-20-2024 End: 05-20-2024 ambulatory RADHA HARI Facility:[facility] Start: 05-20-2024 End: 05-20-2024 Patient encounter procedure Oskar Leger MD Work Phone: [facility] [place] Comment on above: Medicare annual well ness visit, subsequent (Primary Dx); Need for influenza vaccination; Screening for depression; Encounter for screening examination for other mental health and behavioral disorders; Anemia due to stage 3b chronic kidney disease (HCC) ; Essential hypertension; Paroxysmal atrial fibrillation (HCC) Start: 05-05-2024 End: 05-05-2024 ambulatory OSKAR Peres HARI Facility:[facility] Start: 05-05-2024 End: 05-05-2024 Office outpatient visit 15 minutes Jagdish Bender APRN.MEDICAL LANGUAGE SPECIALIST Work Phone: [facility] Comment on above: 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) Start: 02-23-2024 End: 02-23-2024 ambulatory OSKAR LEGER Facility:[facility] Start: 02-23-2024 End: 02-23-2024 Office outpatient visit 15 minutes Jagdish Bender RN SPINE.MEDICAL LANGUAGE SPECIALIST Work Phone: [facility] Comment on above: Rhinorrhea (Primary Dx) Start: 02-15-2024 End: 02-15-2024 ambulatory RADHA HARI Facility:[facility] Start: 02-15-2024 End: 02-15-2024 Office outpatient visit 15 minutes Tien Joiner MD Work Phone: [facility] Comment on above: Skin tear of right f orearm without complication, initial encounter (Primary Dx) Start: 01-31-2024 End: 01-31-2024 ambulatory Millicent Goss NP Facility:[facility] Start: 12-21-2023 End: 12-21-2023 ambulatory Oskar Leger Facility:[facility] Start: 10-25-2023 Telephone encounter Laura BACA Work Phone: [email or web address] Comment on above: Results Start: 10-25-2023 End: 10-25-2023 ambulatory OSKAR Peres LEGER Facility:[facility] Start: 10-25-2023 End: 10-25-2023 Patient encounter procedure Laura BACA Work Phone: [email or web address] Comment on above: Acute cough (Primary Dx) Start: 10-25-2023 End: 10-25-2023 Subsequent hospital visit by physician [facility] Work Phone: Radiology Comment on above: Acute cough [R05.1] Start: 06-17-2023 End: 06-17-2023 Subsequent hospital visit by physician Xr [facility] Work Phone: Radiology Comment on above: Acute pain of left k nee [M25.562] Start: 05-11-2023 End: 05-11-2023 Patient encounter procedure Bina Chu APRN.MEDICAL LANGUAGE SPECIALIST Work Phone: [facility] [place] Comment on above: Medicare annual well ness visit, subsequent (Primary Dx); Paroxysmal atrial fibrillation (HCC); Anemia due to stage 3b chronic kidney disease (HCC) ; Encounter for immunization Start: 04-23-2023 Telephone encounter Tanya Echols APRN.MEDICAL LANGUAGE SPECIALIST Work Phone: [facility] Comment on above: Results; Orders Orders Start: 04-22-2023 End: 04-22-2023 Patient encounter procedure Tien Joiner MD Work Phone: [facility] Comment on above: URI, acute (Primary Dx); Exposure to confirmed case of COVID-19 Start: 11-10-2022 End: 11-10-2022 Office outpatient visit 15 minutes Jagdish Bender APRN.MEDICAL LANGUAGE SPECIALIST Work Phone: [facility] Comment on above: Acute pain of left s khalida (Primary Dx) Start: 05-10-2022 End: 05-10-2022 Subsequent hospital visit by physician [facility] [place] Work Phone: Radiology Comment on above: Toe injury, left, in itial encounter [U75.922A] Start: 05-10-2022 End: 05-10-2022 Patient encounter procedure Neha Cervantes PA-C Work Phone: [facility] Comment on above: Viral URI with cough (Primary Dx); Closed displaced fracture of proximal phalanx of lesser toe of left foot, initial encounter; Laceration of lesser toe of left foot without foreign body present or damage to nail, initial encounter Start: 04-27-2022 Telephone encounter Oskar hollis MD Work Phone: [facility] [place] Comment on above: Results Start: 04-20-2022 End: 04-20-2022 Patient encounter procedure Oskar Leger MD Work Phone: [facility] [place] Comment on above: Medicare annual well ness visit, subsequent (Primary Dx); Essential hypertension; Need for influenza vaccination; Obesity, Class I, BMI 30-34.9; Paroxysmal atrial fibrillation (HCC); Stage 3a chronic kidney disease (HCC); Thrombocytopenia (HCC); YAJAIRA (obstructive sleep apnea) on CPAP Start: 02-22-2022 ambulatory Una Kaur MA [facility] Comment on above: Population Health Na vigation Outreach ([employer] Care Gaps /) Start: 12-07-2016 End: 01-22-2017 Ambulatory Meliton Croft Facility:[facility] Procedures Date Procedure Procedure Detail Performing Clinician Start: 12-02-2024 X-ray of chest, PA ruth keller lateral views Dr. Oskar Leger MD Work Phone: Start: 12-02-[address] Oskar Leger MD Work Phone: Start: 11-06-[address] Oskar Leger MD Work Phone: Start: 11-06-2024 Serum inorganic phos phate measurement Dr. Oskar Leger MD Work Phone: Start: 05-20-2024 Adult depression scr eening assessment Oskar Leger MD Work Phone: Start: 10-25-2023 Radiologic exam chest 2 views Laura Gutierrez PA Work Phone: Start: 10-25-2023 COVID & INFLUENZA A/ B & RSV NAAT, ROUTINE Krislyn P Aberegg PA Work Phone: Start: 06-17-2023 Radiologic exam knee complete 4/more views Mónica Saucedo RN SPINE.MEDICAL LANGUAGE SPECIALIST Work Phone: Start: 05-11-2023 INFLUENZA VACCINE, P RSV FREE, AGE 65+ YR, HIGH DOSE, QUADRIVALENT (FLUZONE HIGH-DOSE) Bina Older RN SPINE.MEDICAL LANGUAGE SPECIALIST Work Phone: Start: 05-10-2022 Radex toe minimum 2 views Neha Cervantes PA-C Work Phone: Start: 04-20-2022 INFLUENZA SEASONAL QUADRIVALENT HIGH DOSE AGE 65+ Oskar Leger MD Work Phone: Start: 12-20-2016 End: 12-20-2016 LUIS EDUARDO Chow MD Work Phone: Start: 12-20-2016 End: 01-16-2017 Echocardiography Juan Chow MD Work Phone: Start: 12-20-2016 End: 12-20-2016 Dietary management education, guidance, and counseling Ghazala Franco Start: 12-20-2016 End: 12-20-2016 LUIS EDUARDO Chow MD Work Phone: Start: 12-20-2016 End: 01-16-2017 Echocardiography Juan Chow MD Work Phone: Start: 12-20-2016 End: 12-20-2016 Follow Up Appt 6 months Juan Chow MD Work Phone: Plan of Treatment Date Care Activity Detail Author Start: 08-12-2025 Diabetes Screening Diabetes Screenin g [facility] Start: 05-20-2025 Anxiety Screening Anxiety Screening [facility] Start: 05-20-2025 Covid-19 Vaccine () Covid-19 Vaccine () [facility] Comment on above: Postponed from 02/10 (Declined at this time) Start: 05-20-2025 Depression Screening Depression Scre ening [facility] Start: 05-20-2025 End: 05-20-2025 Patient encounter procedure 05/20/2025 8:00 AM EST Office Visit [facility] [place] [address] [place] [address] Bina Rondon, RN SPINE.MEDICAL LANGUAGE SPECIALIST [address] [place] [address] Annual Medicare Wellness [facility] [place] Comment on above: Annual Medicare Well ness Start: 05-06-2025 End: 05-06-2025 Patient encounter procedure 05/06/2025 8:00 AM EST Office Visit [facility] [place] [address] [facility] [place] [address] Oskar Leger MD [address] [facility], [place] [id number] Annual Medicare Wellness [facility] [place] Comment on above: Annual Medicare Well ness Start: 04-26-2025 DIABETES SCREEN DIABETES SCREEN [facility] Start: 04-26-2025 Diabetes Screening Diabetes Screenin g [facility] Start: 12-02-2024 [facility] Start: 12-02-2024 [facility] Start: 06-12-2024 Advance Directive Discussion Advance Directive Discussion [facility] Start: 06-12-2024 Medicare Advantage A nnual Wellness Visit Medicare Advantage Annual Wellness Visit [facility] Start: 05-25-2024 End: 05-25-2024 Patient encounter procedure 05/25/2024 9:40 AM EST Office Visit [facility] [place] [address] [facility] [place], [place] [address] Oskar Leger MD [address] [place] [address] ED follow up [facility] [place] Comment on above: ED follow up Start: 05-20-2024 End: 05-20-2024 Patient encounter procedure 05/20/2024 12:00 PM EST Office Visit [facility] [place] [address] [place] [address] Oskar Leger MD [address] [place] [address] medicare wellness [facility] [place] Comment on above: medicare wellness Start: 05-11-2024 Covid-19 Vaccine () Covid-19 Vaccine () [facility] Comment on above: Postponed from 02/10 (Declined at this time) Start: 05-11-2024 RSV Vaccine (1 - 1-d ose 60+ series) RSV Vaccine (1 - 1-dose 60+ series) [facility] Comment on above: Postponed from 10/28 (Declined at this time) Start: 05-11-2024 RSV Vaccine (1 - 1-d ose 75+ series) RSV Vaccine (1 - 1-dose 75+ series) [facility] Comment on above: Postponed from 10/28 (Declined at this time) Start: 05-11-2024 Shingrix Vaccine (2 of 3) Brooks grix Vaccine (2 of 3) [facility] Comment on above: Postponed from 03/04 (Declined at this time) Start: 05-11-2024 Urine microalbumin profile DTaP,Tdap,Td Vaccine (1 - Tdap) [facility] Comment on above: Postponed from 05/11 (Declined at this time) Start: 02-11-2024 Covid-19 Vaccine () Covid-19 Vaccine () [facility] Start: 02-11-2024 Covid-19 Vaccine ( season) Covid-19 Vaccine () [facility] Start: 02-11-2024 Influenza vaccination Influenza Vacc ine (#1) [facility] Start: 06-12-2023 Advance Directive Discussion Advance Directive Discussion [facility] Start: 06-12-2023 Behavioral Health Screening Behavioral Health Screening [facility] Start: 04-22-2023 End: 05-06-2023 SARS-CoV-2 (COVID-19) RNA [Presence] in Respiratory specimen by MARIMAR with probe detection COVID NAAT, UPPER RESPIRATORY, ROUTINE Microbiology Routine URI, acute Exposure to confirmed case of COVID-19 Expected: 04/22/2023, Expires: 05/06/2023 [facility] Work Phone: Comment on above: Expected: 04/22/2023 , Expires: 05/06/2023 Start: 02-10-2023 Covid-19 Vaccine () Covid-19 Vaccine () [facility] Start: 02-10-2023 Influenza vaccination Influenza Vacc ine (#1) [facility] Start: 06-12-2022 ADVANCE DIRECTIVE DISCUSSION ADVANCE DIRECTIVE DISCUSSION [facility] Start: 06-12-2022 DEPRESSION ASSESSMENT DEPRESSION ASS ESSMENT [facility] Start: 05-11-2022 Urine microalbumin profile [facility] Start: 05-10-2022 End: 05-24-2022 Influenza virus A and B RNA and SARS-CoV-2 (COVID-19) N gene panel - Respiratory specimen by MARIMAR with probe detection [facility] Work Phone: Comment on above: Expected: 05/10/2022 , Expires: 05/24/2022 Start: 04-21-2022 End: 06-21-2022 Basic metabolic 2000 panel - Serum or Plasma BASIC METABOLIC PNL Lab Routine Stage 3a chronic kidney disease (HCC) Expected: 04/21/2022, Expires: 06/21/2022 [facility] Work Phone: Comment on above: Expected: 04/21/2022 , Expires: 06/21/2022 Start: 04-21-2022 End: 06-21-2022 CBC panel - Blood by Automated count CBC Lab Routine Paroxysmal atrial fibrillation (HCC) Expected: 04/21/2022, Expires: 06/21/2022 [facility] Work Phone: Comment on above: Expected: 04/21/2022 , Expires: 06/21/2022 Start: 04-14-2022 SHINGRIX VACCINE (2 of 3) BROOKS GRIX VACCINE (2 of 3) [facility] Comment on above: Postponed from 03/04 (Declined at this time) Start: 03-21-2022 Urine microalbumin profile DTAP,TDAP,TD (1 - Tdap) [facility] Comment on above: Postponed from 03/22 (Postponed To Appropriate Date) Start: 03-06-2022 DIABETES SCREEN DIABETES SCREEN [facility] Start: 02-10-2022 Influenza vaccination INFLUENZA (#1) [facility] Start: 06-12-2021 ADVANCE DIRECTIVE DISCUSSION ADVANCE DIRECTIVE DISCUSSION [facility] Start: 02-07-2021 COVID-19 VACCINE (3 - Booster for Moderna series) COVID-19 VACCINE (3 - Booster for Moderna series) [facility] Start: 11-02-2020 COVID-19 VACCINE (3 - Booster for Moderna series) COVID-19 VACCINE (3 - Booster for Moderna series) [facility] Start: 10-23-2017 End: 10-23-2017 [facility] Work Phone: Start: 12-20-2016 End: 12-20-2016 Appointment Appointment [facility] Work Phone: Start: 12-20-2016 End: 12-20-2016 *Hepatic Function Panel *Hepatic Function Panel Where I've Been Work Phone: Start: 12-20-2016 End: 12-20-2016 DJN DJN [facility] Work Phone: Start: 12-20-2016 End: 12-20-2016 Echocardiography Echocardiogram (complete) [facility] Work Phone: Start: 12-20-2016 End: 12-20-2016 Follow Up Appt 6 months Follow Up Appt 6 months [employer] Work Phone: Start: 12-20-2016 End: 12-20-2016 INR Coag RelTime (PPP) *PT/INR - Standing Order [facility] Work Phone: Start: 12-20-2016 End: 12-20-2016 Lipid panel [AGGREGATE] *Lipid Profile CC PCP [facility] Work Phone: Start: 12-20-2016 End: 12-20-2016 *Hepatic Function Panel *Hepatic Function Panel [facility] Work Phone: Start: 12-20-2016 End: 12-20-2016 Coagulation factor induced.INR assay in platelet poor plasma *PT/INR - Standing Order [facility] Work Phone: Start: 12-20-2016 End: 12-20-2016 DJN DJN [place] [employer] [employer] [facility] Work Phone: Start: 12-20-2016 End: 12-20-2016 Echocardiography Echocardiogram (complete) [facility] Work Phone: Start: 12-20-2016 End: 12-20-2016 Follow Up Appt 6 months Follow Up Appt 6 months [facility] Work Phone: Start: 12-20-2016 End: 12-20-2016 Lipid panel [AGGREGATE] *Lipid Profile CC PCP [place] [facility] Work Phone: Start: 10-29-2015 RSV Vaccine (1 - 1-d ose 75+ series) RSV Vaccine (1 - 1-dose 75+ series) [facility] Start: 03-22-2012 Urine microalbumin profile DTAP,TDAP,TD (1 - Tdap) [facility] Start: 03-04-2011 SHINGRIX VACCINE (2 of 3) BROOKS GRIX VACCINE (2 of 3) [facility] Start: 2000 RSV Vaccine (1 - 1-d ose 60+ series) RSV Vaccine (1 - 1-dose 60+ series) [facility] Start: 1958 Anxiety Screening Anxiety Screening [facility] Start: 1958 Depression Screening Depression Scre ening [facility] Patient referral [facility] Work Phone: [facility] Immunizations Immunization Date Immunization Notes Care Provider Rosalia chandra 05-20-2024 influenza, high dose seasonal, preservative-free Oskar Leger MD Work Phone: [facility] 05-11-2023 influenza (HD-IIV4) vaccine, age 65+ yr, high dose, quadrivalent, PF (FLUZONE HIGH-DOSE) Bina Older RN SPINE.MEDICAL LANGUAGE SPECIALIST Work Phone: [facility] 05-11-2023 influenza virus vacc ine, unspecified formulation Tien Joiner MD Work Phone: [facility] 05-10-2022 tetanus and diphther ia toxoids, adsorbed, preservative free, for adult use (5 Lf of tetanus toxoid and 2 Lf of diphtheria toxoid) Neha Cervantes PA-C Work Phone: [facility] 05-10-2022 TD(adult) unspecifie d formulation Neha Cervantes PA-C Work Phone: [facility] Work Phone: 04-20-2022 influenza, high-dose , quadrivalent vaccine (FLUZONE HIGH DOSE QUADRIVALENT) Oskar Leger MD Work Phone: [facility] Work Phone: 04-20-2022 influenza virus vacc ine, unspecified formulation Tien Joiner MD Work Phone: [facility] 04-14-2021 influenza, high-dose , quadrivalent vaccine (FLUZONE HIGH DOSE QUADRIVALENT) Una Kaur MA [facility] 09-07-2020 COVID-19 vaccine, fu ll dose (MODERNA) Una Kaur MA [facility] 08-09-2020 COVID-19 vaccine, fu ll dose (MODERNA) Una Kaur MA [facility] 03-13-2020 influenza, high-dose , quadrivalent vaccine (FLUZONE HIGH DOSE QUADRIVALENT) Una Kaur MA [facility] 03-08-2019 influenza, high dose seasonal, preservative-free Una Kaur MA [facility] 03-07-2018 influenza, high dose seasonal, preservative-free Una Kaur MA [facility] Work Phone: 02-27-2017 influenza, high dose seasonal, preservative-free Una Kaur MA [facility] 03-25-2016 influenza, high dose seasonal, preservative-free Una Kaur [facility] 02-11-[address] Oskar Leger MD Work Phone: [facility] 04-27-2015 pneumococcal conjuga te vaccine, 13 valent Una Kaur [facility] Work Phone: 03-13-2015 influenza, high dose seasonal, preservative-free Una Kaur [facility] 03-13-2014 influenza, seasonal, injectable Una Kaur MA [facility] 04-20-2013 influenza virus vacc ine, unspecified formulation Una Kaur [facility] Work Phone: 03-21-2012 influenza virus vacc ine, unspecified formulation Una Kaur [facility] Work Phone: 03-21-2012 tetanus and diphther ia toxoids, adsorbed, preservative free, for adult use (2 Lf of tetanus toxoid and 2 Lf of diphtheria toxoid) Una Kaur [facility] Work Phone: 11-16-2011 pneumococcal conjuga te vaccine, 13 valent Una Kaur [facility] Work Phone: 01-07-2011 zoster vaccine, live Una Kaur [facility] Work Phone: 10-10-2008 pneumococcal polysaccharide vaccine, 23 valent Una Kaur MA [facility] 05-12-2006 pneumococcal polysaccharide vaccine, 23 valent Una Kaur [facility] Payers Date Payer Category Payer Self-pay 2023 Medicare (Managed Care) [place] [id number] 2023 Medicare [id number] 2021 Medicare [id number] 2016 Unknown 2013 Medicare [id number] Unknown [id number] Unknown [id number] Unknown [id number] Unknown [id number] Social History Date Type Detail Facility Start: 03-21-2012 End: 12-02-2024 Tobacco smoking status NHIS Never smoked tobacco [facility] Work Phone: Start: 03-21-2012 Tobacco use and exposure Smokeless tobacco non-user [facility] Work Phone: Start: 04-10-2021 End: 05-05-2024 Alcohol intake Current non-drinker of alcohol (finding) [facility] Start: 1940 Sex Assigned At Not on file C [facility] Start: 04-20-2022 History SDOH Physica l Activity DPW [address] [facility] Start: 04-20-2022 History SDOH Physica l Activity MPS [address] [facility] Start: 04-10-2022 End: 05-10-2022 Exposure to SARS-CoV-2 (event) Not sure [facility] Work Phone: Start: 04-22-2023 End: 05-11-2023 History of Social function [facility] Work Phone: Start: 04-22-2023 End: 05-11-2023 Tobacco use panel [facility] Work Phone: Adult Depression Screening Assessment [address] [facility] Work Phone: How often to you hav e a drink containing alcohol? Never [facility] Start: 12-08-2019 Alcohol Alcohol [facility] Start: 12-08-2019 Lives Lives [facility] Start: 11-19-2016 Tobacco Use Tobacco Use [facility] Start: 1940 Sex Assigned At Male W [facility] Functional Status Date Assessment Result Facility 11-24-2014 Are you deaf, or do you have serious difficulty hearing No 11/24/2014 3:38 PM EDT Barb Najera Ma No [facility] 11-24-2014 Are you blind, or do you have serious difficulty seeing, even when wearing glasses No 11/24/2014 3:38 PM Barb Graff Ma No [facility] 11-24-2014 Do you have serious difficulty walking or climbing stairs No 11/24/2014 3:38 PM Barb Graff Ma No [facility] 11-24-2014 Do you have difficul ty dressing or bathing No 11/24/2014 3:38 PM Barb Graff Ma No [facility] 11-24-2014 Because of a physica l, mental, or emotional condition, do you have difficulty doing errands alone such as visiting a physician's office or shopping No 11/24/2014 3:38 PM EDBarb Mccray Ma No [facility] Mental Status Date Assessment Result Facility 12-02-2024 Cognitive function Level Of Cons ciousness Awake;Alert;Appropriate;Fol lows Commands [facility] Work Phone: 11-24-2014 Because of a physica l, mental, or emotional condition, do you have serious difficulty concentrating, remembering, or making decisions No 11/24/2014 3:38 PM EDBarb Mccray Ma No [facility] Clinical Notes 10-20-2017 to 12-02-2024 Ermias Elizabeth, RN SPINE.MEDICAL LANGUAGE SPECIALIST - 12/01/2024 11:24 AM EDT Note Date & Type Note Facility 12-02-2024 Discharge summary [facility] 12-02-2024 Radiology Diagnostic study note [facility] Imaging Services [address] [place] [address] Chest PA and Lateral MR#: [id number] Acct: [id number] Name: RJ LEUNG Rep #: [id number] : 1940 M 84 From: Adryan Morrell MD PCP: Dr. Oskar Leger MD Status: R EG ER Study:Chest PA and Lateral Date of Exam: 12/02/24 Exam# [id number] Ordering Dr: Ole Yo DO PROCEDURE: CHEST PA AND LATERAL 12/02/2024 REASON FOR EXAM: COUGH TECHNIQUE: CHEST PA AND LATERAL COMPARISON: None. RAD/Chest PA and Lateral IMPRESSION: Lungs appear clear of acute disease. No pleural effusion or pneumothorax is noted. The cardiomediastinal silhouette is remarkable for a somewhat calcified and tortuous aorta. No evidence of cardiomegaly. Mild thoracic spine degenerative changes are seen, along with DISH. No acute osseous change is evident. Reading Location: [place] [address] CC: Dr. Lonnie Yo DO; Dr. Oskar Leger MD ~ Patrol Mother: Signed [facility] 12-01-2024 History of Present illness Narrative This note was created using [employer]. Subjective Rj Leung is a 84 year old male. HPI Patient woke this morning with nasal congestion, sore throat, and drainage. He states that the sore throat has resolved but he continues to have the ongoing congestion and drainage. He denies any fever but does note a mild cough. Review of Systems As above Objective BP 124/70 Pulse 80 Temp 37.1 C (98.8 F) Resp 16 Wt 97.8 kg (215 lb 9.8 oz) SpO2 96% BMI 28.45 kg/m Physical Exam Vitals and nursing note reviewed. Constitutional: General: He is not in acute distress. Appearance: Normal appearance. He is not ill-appearing. HENT: Head: Normocephalic. Mouth/Throat: Mouth: Mucous membranes are moist. Pharynx: No oropharyngeal exudate or posterior oropharyngeal erythema. Eyes: Conjunctiva/sclera: Conjunctivae normal. Cardiovascular: Rate and Rhythm: Normal rate and regular rhythm. Pulmonary: Effort: Pulmonary effort is normal. Breath sounds: Normal breath sounds. Musculoskeletal: General: Normal range of motion. Cervical back: Normal range of motion. Skin: General: Skin is warm and dry. Neurological: General: No focal deficit present. Mental Status: He is alert. Psychiatric: Mood and Affect: Mood normal. Behavior: Behavior normal. Assessment and Plan ASSESSMENT/PLAN: 1. Viral URI - ICD9: 465.9, ICD10: J06.9 - Discussed viral etiology and rationale for treatment. Discussed with patient why antibiotics would not be effective at this stage. We did discuss viral testing and strep testing which patient declines at this time. 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 Author Type: Physician Type: Progress Notes Filed: 10/17/2024 11:49 Note Text: [facility] Subjective Rj Leung is a 83 year old male. Patient presents with: Sinus Problem: With congestion and cough x 2 week, took Covid test 1 week ago, negative Patient presents with 2 weeks of head cold symptoms. Has had sinus pressure, nasal congestion, rhinorrhea, postnasal drainage, scratchy throat, cough, slight wheeze, and fatigue. Denies fever, chills, shortness of breath. He has used nighttime cough medicine and lozenges. 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 He uses CPAP. Review of Systems Objective BP 137/72 (BP Site: Left Arm, BP Position: Sitting) Pulse 76 Temp 36.2 ?C (97.2 ?F) Resp 16 Wt 99.8 kg (220 lb 0.3 oz) SpO2 99% BMI 29.03 kg/m? Physical Exam Constitutional: General: He is not in acute distress. Appearance: He is not ill-appearing. HENT: Right Ear: Tympanic membrane and ear canal normal. Left Ear: Tympanic membrane and ear canal normal. Nose: Congestion present. Eyes: Extraocular Movements: Extraocular movements intact. Conjunctiva/sclera: Conjunctivae normal. Pupils: Pupils are equal, round, and reactive to light. Cardiovascular: Rate and Rhythm: Normal rate and regular rhythm. Heart sounds: No murmur heard. Pulmonary: Effort: No respiratory distress. Breath sounds: No wheezing, rhonchi or rales. Musculoskeletal: Cervical back: Neck supple. Lymphadenopathy: Cervical: No cervical adenopathy. Neurological: Mental Status: He is alert. {ASSESSMENT/PLAN: 1. Acute non-recurrent sinusitis, unspecified location - ICD9: 461.9, ICD10: J01.90 Treat for secondary bacterial sinusitis with - DOXYCYCLINE MONOHYDRATE 100 MG CAPSULE (reports child has an issue with penicillin) He may continue supportive care treatment with ecqb-ath-[id number] cough AND cold medicines. Tien Joiner MD Differential Diagnoses - sinusitis is more likely for the following reason(s): suggested by HANDP - seasonal allergies is less likely for the following reason(s): [facility] of Present illness Narrative* Tien Joiner MD - 10/17/2024 11:31 AM EDT [facility] Subjective Rj Leung is a 83 year old male. Patient presents with: Sinus Problem: With congestion and cough x 2 week, took Covid test 1 week ago, negative Patient presents with 2 weeks of head cold symptoms. Has had sinus pressure, nasal congestion, rhinorrhea, postnasal drainage, scratchy throat, cough, slight wheeze, and fatigue. Denies fever, chills, shortness of breath. He has used nighttime cough medicine and lozenges. 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 He uses CPAP. Review of Systems Objective BP 137/72 (BP Site: Left Arm, BP Position: Sitting) Pulse 76 Temp 36.2 C (97.2 F) Resp 16 Wt 99.8 kg (220 lb 0.3 oz) SpO2 99% BMI 29.03 kg/m Physical Exam Constitutional: General: He is not in acute distress. Appearance: He is not ill-appearing. HENT: Right Ear: Tympanic membrane and ear canal normal. Left Ear: Tympanic membrane and ear canal normal. Nose: Congestion present. Eyes: Extraocular Movements: Extraocular movements intact. Conjunctiva/sclera: Conjunctivae normal. Pupils: Pupils are equal, round, and reactive to light. Cardiovascular: Rate and Rhythm: Normal rate and regular rhythm. Heart sounds: No murmur heard. Pulmonary: Effort: No respiratory distress. Breath sounds: No wheezing, rhonchi or rales. Musculoskeletal: Cervical back: Neck supple. Lymphadenopathy: Cervical: No cervical adenopathy. Neurological: Mental Status: He is alert. {ASSESSMENT/PLAN: 1. Acute non-recurrent sinusitis, unspecified location - ICD9: 461.9, ICD10: J01.90 Treat for secondary bacterial sinusitis with - DOXYCYCLINE MONOHYDRATE 100 MG CAPSULE (reports child has an issue with penicillin) He may continue supportive care treatment with tsza-yix-curoxdz cough & cold medicines. Tien Joiner MD Differential Diagnoses - sinusitis is more likely for the following reason(s): suggested by H&P - seasonal allergies is less likely for the following reason(s): denies prior history [facility] NoteHNO ID: [id number] Author: OSKAR LEGER MD Service: ? Author Type: Physician Type: Progress Notes Filed: 05/25/2024 10:46 Note Text: This note was created using NoteWriter. Subjective Rj Leung is a 83 year old male here with his spouse. He became concerned about elevated blood pressure since they were about to leave for [place]. He went to the ER where blood pressure was monitored and was stable. He was here for a recheck. Review of Systems Constitutional: Negative for fatigue. Respiratory: Negative for chest tightness and shortness of breath. Cardiovascular: Negative for chest pain and palpitations. Neurological: Negative for dizziness and headaches. ACTIVE PROBLEM LIST Bph Without Obstruction/Lower Urinary Tract Symptoms Paroxysmal Atrial Fibrillation (Hcc) Varicose Veins of Leg With Edema, Bilateral YAJAIRA (obstructive sleep apnea) on CPAP Lichen Planus Essential Hypertension Obesity, Class I, Bmi 30-34.9 Anemia due to stage 3b chronic kidney disease (HCC) Objective BP 129/67 Pulse 64 Resp 16 Wt 102.1 kg (225 lb 1.4 oz) BMI 29.70 kg/m? Physical Exam Constitutional: Appearance: He is not ill-appearing. Cardiovascular: Rate and Rhythm: Normal rate and regular rhythm. Heart sounds: No murmur heard. No gallop. Pulmonary: Breath sounds: Normal breath sounds. Neurological: Mental Status: He is alert. Assessment and Plan 1. Essential hypertension - ICD9: 401.9, ICD10: I10 Diet controlled. - Recommend home blood pressure monitoring, to bring results to next visit - Encouraged sodium restriction, DASH or Mediterranean diet Oskar Leger [facility]12-14-2024 History of Present illness Narrative* Oskar Leger MD - 05/25/2024 10:01 AM EST This note was created using NoteWriter. Subjective Rj Leung is a 83 year old male here with his spouse. He became concerned about elevated blood pressure since they were about to leave for [place]. He went [facility] ER where blood pressure was monitored and was stable. He was here for a recheck. Review of Systems Constitutional: Negative for fatigue. Respiratory: Negative for chest tightness and shortness of breath. Cardiovascular: Negative for chest pain and palpitations. Neurological: Negative for dizziness and headaches. ACTIVE PROBLEM LIST Bph Without Obstruction/Lower Urinary Tract Symptoms Paroxysmal Atrial Fibrillation (Hcc) Varicose Veins of Leg With Edema, Bilateral YAJAIRA (obstructive sleep apnea) on CPAP Lichen Planus Essential Hypertension Obesity, Class I, Bmi 30-34.9 Anemia due to stage 3b chronic kidney disease (HCC) Objective BP 129/67 Pulse 64 Resp 16 Wt 102.1 kg (225 lb 1.4 oz) BMI 29.70 kg/m Physical Exam Constitutional: Appearance: He is not ill-appearing. Cardiovascular: Rate and Rhythm: Normal rate and regular rhythm. Heart sounds: No murmur heard. No gallop. Pulmonary: Breath sounds: Normal breath sounds. Neurological: Mental Status: He is alert. Assessment and Plan 1. Essential hypertension - ICD9: 401.9, ICD10: I10 Diet controlled. - Recommend home blood pressure monitoring, to bring results to next visit - Encouraged sodium restriction, DASH or Mediterranean diet Oskar Leger MD [facility] NoteHNO ID: [id number] Author: KIRSTIN NEWBERRY MA Service: ? Author Type: Cooperative Education Coordinator Type: Progress Notes Filed: 05/23/2024 14:59 Note Text: POPULATION HEALTH NAVIGATION OUTREACH Action/FYI CM Pool Message: Type: ACM A follow-up appointment is not noted in patient's record. We are forwarding this patient to Network Navigation to schedule a follow-up appointment. Patient discharged from [facility] ED Discharge date: 05/21/24 Seen for: Elevated blood pressure reading Outcome: 1st attempt. Spoke with patient. Appointment scheduled for 05/25/24. Reason for Outreach Community Monitoring/Network Navigator Pools AND Phone Line: AC Patient Contacted: Spoke to patient/parent/or legal guardian Patient identified by name and : Yes Community Monitoring/Network Navigator Pools AND Phone Line actions taken: Patient scheduled: ER Follow-up 05/25/2024 in [facility] with OSKAR LEGER - ED follow up, [facility] 05/21/24, DX:Elevated blood pressure reading 05/20/2025 in [facility] with BINA RONDON - Annual Medicare Wellness Navigation Signature: Kirstin Newberry MA May 23, 2024 2:41 [facility]12-12-2024 History of Present illness Narrative* Kirstin Newberry MA - 05/23/2024 2:41 PM EST POPULATION HEALTH NAVIGATION OUTREACH Action/FYI CM Pool Message: Type: ACM A follow-up appointment is not noted in patient's record. We are forwarding this patient to [facility] to schedule a follow-up appointment. Patient discharged from [facility] ED Discharge date: 05/21/24 Seen for: Elevated blood pressure reading Outcome: 1st attempt. Spoke with patient. Appointment scheduled for 05/25/24. Reason for Outreach Community Monitoring/Network Navigator Pools & Phone Line: [facility] Patient Contacted: Spoke to patient/parent/or legal guardian Patient identified by name and : Yes Community Monitoring/Network Navigator Pools & Phone Line actions taken: Patient scheduled: ER Follow-up 05/25/2024 in [facility] with OSKAR LEGER - ED follow up, [facility] 05/21/24, DX:Elevated blood pressure reading 05/20/2025 in [facility] with BINA RONDON - Annual Medicare Wellness Navigation Signature: Kirstin Newberry MA May 23, 2024 2:41 PM * Emmie Rome RN - 05/23/2024 1:56 PM ESTSummary: ED Utilization review per request of payer Per review of ED Utilization at request of Payer - [place] Leung 1940 needs to have an appointment scheduled with Oskar Leger MD for follow up of Emergency Department Utilization. Please schedule an appointment with PCP for review of these conditions as well as any other open care gaps. Patient has had Annual Wellness Visit scheduled or completed for 2023 - YES Appointment Status: Completed 05/20/24 Thank you for your assistance. Emmie Rome RN ACM JOELLEN RN Patient identified by name and date of . Reason for review or outreach: Chart Review Joellen Priority Emergency Department Utilization REQUESTED ACTION/FYI: Please see ED Utilization summary below A follow-up appointment is not noted in patient's record. We are forwarding this patient to [facility] to schedule a follow-up appointment. Follow-Ups: Schedule an appointment with Oskar Leger MD (Internal Medicine) in 2 days (05/23/2024) Exclusion Criteria - Does not meet exclusion criteria Utilization in past 6 months: # Occurrences Date Last Occurrence Hospital Admission 0 Hospital Observation 0 ED 1 05/21/24 SNF / Acute Rehab / LTAC 0 ED DIAGNOSES/REASON(S) FOR ED USE: 05/21 Elevated blood pressure reading OTHER FINDINGS/SUMMARY: 05/21 Pt prefers to hold on labs and EKG and continue to monitor his blood pressure at home Patient Attributed To: E Payer: [employer] BHAKTA Action Taken: Referrals/Routed: Population Health Navigation: Appointment. Router to COMMUNITY MONITORING [facility] POOL [[id number]] Contact made with patient: No, Chart review only. Signature: CHECO Cuellar, RN [facility] [employer] Joellen Nurse May 23, [address] [facility] NoteHNO ID: [id number] Author: EMMIE ROME RN Service: ? Author Type: Registered Nurse Type: Progress Notes Filed: 05/23/2024 14:02 Note Text: Summary: ED Utilization review per request of payer Per review of ED Utilization at request of Payer - [place] Leung 1940 needs to have an appointment scheduled with Oskar Leger MD for follow up of Emergency Department Utilization. Please schedule an appointment with PCP for review of these conditions as well as any other open care gaps. Patient has had Annual Wellness Visit scheduled or completed for 2023 - YES Appointment Status: Completed 05/20/24 Thank you for your assistance. ANDRES Cuellar JOELLEN RN Patient identified by name and date of . Reason for review or outreach: Chart Review Joellen Priority Emergency Department Utilization REQUESTED ACTION/FYI: Please see ED Utilization summary below A follow-up appointment is not noted in patient's record. We are forwarding this patient to Network Navigation to schedule a follow-up appointment. Follow-Ups: Schedule an appointment with Oskar Leger MD (Internal Medicine) in 2 days (05/23/2024) Exclusion Criteria - Does not meet exclusion criteria Utilization in past 6 months: # Occurrences Date Last Occurrence Hospital Admission 0 Hospital Observation 0 ED 1 05/21/24 SNF / Acute Rehab / LTAC 0 ED DIAGNOSES/REASON(S) FOR ED USE: 05/21 Elevated blood pressure reading OTHER FINDINGS/SUMMARY: 05/21 Pt prefers to hold on labs and EKG and continue to monitor his blood pressure at home Patient Attributed To: ARMANDO Payer: [place] BHAKTA Action Taken: Referrals/Routed: Population Health Navigation: Appointment. Router to COMMUNITY MONITORING [facility] [[id number]] Contact made with patient: No, Chart review only. Signature: CHECO Cuellar, ANDRES ARMANDO B[employer]alf[employer] Joellen Nurse [facility] 23[facility] NotePatient Outreach ([facility]) RJ LEUNG ([id number]) 1940 M Date Time Provider Department 05/23/24 EMMIE ROME During your visit today, we recorded the following information about you: Emmie Rome RN 05/23/2024 2:02 PM Signed Per review of ED Utilization at request of Payer - [place] Leung 1940 needs to have an appointment scheduled with Oskar Leger MD for follow up of Emergency Department Utilization. Please schedule an appointment with PCP for review of these conditions as well as any other open care gaps. Patient has had Annual Wellness Visit scheduled or completed for 2023 - YES Appointment Status: Completed 05/20/24 Thank you for your assistance. Emmie Rome RN [facility] JOELLEN RN Patient identified by name and date of . Reason for review or outreach: Chart Review Joellen Priority Emergency Department Utilization REQUESTED ACTION/FYI: Please see ED Utilization summary below A follow-up appointment is not noted in patient's record. We are forwarding this patient to Network Navigation to schedule a follow-up appointment. Follow-Ups: Schedule an appointment with Oskar Leger MD (Internal Medicine) in 2 days (05/23/2024) Exclusion Criteria - Does not meet exclusion criteria Utilization in past 6 months: # Occurrences Date Last Occurrence Hospital Admission 0 Hospital Observation 0 ED 1 05/21/24 SNF / Acute Rehab / LTAC 0 ED DIAGNOSES/REASON(S) FOR ED USE: 05/21 Elevated blood pressure reading OTHER FINDINGS/SUMMARY: 05/21 Pt prefers to hold on labs and EKG and continue to monitor his blood pressure at home Patient Attributed To: E Payer: [place] BHAKTA Action Taken: Referrals/Routed: Population Health Navigation: Appointment. Router to COMMUNITY MONITORING [facility] POOL [[id number]] Contact made with patient: No, Chart review only. Signature: CHECO Cuellar, RN [facility] [place] Joellen Nurse May 23, 2024 Kirstin Newberry MA 05/23/2024 2:59 PM Signed POPULATION HEALTH NAVIGATION OUTREACH Action/[facility] Pool Message: Type: ACM A follow-up appointment is not noted in patient's record. We are forwarding this patient to Network Navigation to schedule a follow-up appointment. Patient discharged from [facility] ED Discharge date: 05/21/24 Seen for: Elevated blood pressure reading Outcome: 1st attempt. Spoke with patient. Appointment scheduled for 05/25/24. Reason for Outreach Community Monitoring/Network Navigator Pools AND Phone Line: [facility] Patient Contacted: Spoke to patient/parent/or legal guardian Patient identified by name and : Yes Community Monitoring/Network Navigator Pools AND Phone Line actions taken: Patient scheduled: [facility] - ED follow up, [facility] 05/21/24, DX:Elevated blood pressure reading 05/20/2025 in [facility] with BINA RONDON - Annual Medicare Wellness Navigation Signature: Kirstin Newberry MA May 23, 2024 2:41 PM Allergies As of Date: 05/23/2024 Noted Allergy Reaction LEVAQUIN (LEVOFLOXACIN) 01/05/2011 2 - Rash PENICILLINS 04/29/2005 2 - Rash ULTRAVIST (IOPROMIDE) 03/29/2012 14 - Other: See Comments Comments: Pt sneezed twice after contrast injection. Radiologist notified and evaluated patient. No meds were given and was advised to be pre medicated for future tests. Date Reviewed: 05/21/2024 Reviewed by: Monika Rodriguez RN - Fully Assessed Reason for Visit: ACM JOELLEN RN [[id number]] Cmt: ED Utilization review per request of payer Prescriptions as of 05/23/2024 - fluticasone (FLONASE ALLERGY RELIEF) 50 mcg/actuation nasal spray Use 1 Armour in each nostril once daily. - ergocalciferol, vitamin D2, (VITAMIN D2 ORAL) Take by mouth. - ELIQUIS 5 mg tab(s) - multivitamin tablet Take 1 tablet by mouth once daily. Problem List As Of Date 05/23/2024 Noted Resolved Nontoxic uninodular goiter [E04.1] 12/05/2005 03/13/2014 BPH without obstruction/lower urinary tract sym*12/05/2005 Unspecified venous (peripheral) insufficiency [*12/05/2005 02/27/2017 Edema [R60.9] 12/05/2005 03/21/2012 DIVERTICULITIS SIGMOID-NO HEMORRHAGE [K57.32] 04/14/2006 03/13/2014 Paroxysmal atrial fibrillation (HCC) [I48.0] 01/03/2020 RECURRENT CELLULITIS [L03.90, L02.91] 01/22/2007 03/21/2012 Hematuria [599.7] 04/18/2007 10/15/2012 Hypertrophy of prostate with urinary obstructio*10/18/2007 03/21/2012 Unspecified disorder of prostate [N42.9] 11/12/2007 03/21/2012 Microscopic hematuria [R31.29] 03/01/2010 03/13/2014 Muscular wasting (more content not included)...[facility] 05-20-2024 Instructions* Patient Instructions* Oskar Leger MD - 05/20/2024 12:52 PM EST Screening schedule The following prevention plan is recommended: Depression Screening Never done Anxiety Screening Never done Shingrix Vaccine(2 of 3) due on 03/04/2011 RSV Vaccine(1 - 1-dose 75+ series) Never done DTaP,Tdap,Td Vaccine(1 - Tdap) due on 05/11/2022 Advance Directive Discussion due on 06/12/2023 Influenza Vaccine(1) due on 02/11/2024 WHAT YOU CAN DO TO PREVENT FALLS Many falls can be prevented. By making some changes, you can lower your chances of falling. Four things YOU can do to prevent falls for you* and your caregiver 1. Begin a regular exercise program Exercise is one of the most important ways to lower your chances of falling. It makes you stronger and helps you feel better. Exercises that improve balance and coordination (like Karl Chi) are the most helpful. Lack of exercise leads to weakness and increases your chances of falling. Ask your doctor or health care provider about the best type of exercise program for you. 2. Have your health care provider review your medicines Have your doctor or pharmacist review all the medicines you take, even [id number] medicines. As you get older, the way medicines work in your body can change. Some medicines, or combinations of medicines, can make you sleepy or dizzy andcan cause you to fall. 3. Have your vision checked Have your eyes checked by an eye doctor at least once a year. You may be wearing the wrong glasses or have a condition like glaucoma or cataracts that limits your vision. Poor vision can increase your chances of falling. 4. Make your home safer About half of all falls happen at home. To make your home safer: Remove things you can trip over (like papers, books, clothes, and shoes) from stairs and places where you walk. Remove small throw rugs or use double-sided tape to keep the rugs from slipping. Keep items you use often in cabinets you can reach easily without using a step stool. Have grab bars put in next to your toilet and in the tub or shower. Use non-slip mats in the bathtub and on shower floors. Improve the lighting in your home. As you get older, you need brighter lights to see well. Hang light-weight curtains or shades to reduce glare. Have handrails and lights put in on all staircases. Wear shoes both inside and outside the house. Avoid going barefoot or wearing slippers. For more information, contact: Centers for Disease Control and Prevention www.cdc.gov/injury * This information may not apply if you have certain medical conditions. [facility] NoteHNO ID: [id number] Author: OSKAR LEGER MD Service: ? Author Type: Physician Type: Progress Notes Filed: 05/20/2024 13:52 Note Text: This note was created using [employer]. Subjective Rj Leung is a 83 year old male here with Tory. He was asking about going back to warfarin instead of apixiban. His hypertension was diet controlled. He had no new concerns. They were leaving for [place] in a few weeks. He gets vein surgeries in [place]. Review of Systems Constitutional: Negative for activity change, appetite change, fatigue and unexpected weight change. Respiratory: Negative for cough and shortness of breath. Cardiovascular: Positive for leg swelling. Negative for chest pain and palpitations. Gastrointestinal: Negative for blood in stool. Genitourinary: Negative for hematuria. Neurological: Negative for dizziness and headaches. ACTIVE PROBLEM LIST Bph Without Obstruction/Lower Urinary Tract Symptoms Paroxysmal Atrial Fibrillation (Hcc) Varicose Veins of Leg With Edema, Bilateral YAJAIRA (obstructive sleep apnea) on CPAP Lichen Planus Essential Hypertension Obesity, Class I, Bmi 30-34.9 Anemia due to stage 3b chronic kidney disease (HCC) Social History Tobacco Use Smoking status: Never Smokeless tobacco: Never Substance Use Topics Alcohol use: No Drug use: No Current Outpatient Medications Medication Sig fluticasone (FLONASE ALLERGY RELIEF) 50 mcg/actuation nasal spray Use 1 Armour in each nostril once daily. ergocalciferol, vitamin D2, (VITAMIN D2 ORAL) Take by mouth. ELIQUIS 5 mg tab(s) multivitamin tablet Take 1 tablet by mouth once daily. No current facility-administered medications for this visit. Objective BP 128/64 (BP Site: Left Arm, BP Position: Sitting, BP Cuff Size: Large Adult) Pulse 70 Temp 36.8 ?C (98.2 ?F) (Temporal) Ht 185.4 cm (6' 1) Wt 100.1 kg (220 lb 10.9 oz) BMI 29.12 kg/m? Physical Exam Constitutional: Appearance: He is not ill-appearing. HENT: Head: Normocephalic. Eyes: Conjunctiva/sclera: Conjunctivae normal. Cardiovascular: Rate and Rhythm: Normal rate and regular rhythm. Occasional Extrasystoles are present. Heart sounds: S1 normal and S2 normal. Pulmonary: Breath sounds: Normal breath sounds. Abdominal: General: There is no distension. Tenderness: There is no abdominal tenderness. Musculoskeletal: Right lower le+ Pitting Edema present. Left lower le+ Pitting Edema present. Neurological: General: No focal deficit present. Mental Status: He is alert. Assessment and Plan 1. Medicare annual wellness visit, subsequent - ICD9: V70.0, ICD10: Z00.00 (primary diagnosis) - See wellness visit. 2. Need for influenza vaccination - ICD9: V04.81, ICD10: Z23 - INFLUENZA VACCINE, PRSV FREE, AGE 65+ YR, HIGH DOSE, TRIVALENT (FLUZONE HIGH-DOSE) 3. Screening for depression - ICD9: V79.0, ICD10: Z13.31 - DEPRESSION SCREENING 4. Encounter for screening examination for other mental health and behavioral disorders - ICD9: V79.8, ICD10: Z13.39 - ANXIETY SCREENING 5. Anemia due to stage 3b chronic kidney disease (HCC) - ICD9: 285.21, 585.3, ICD10: N18.32, D63.1 - eGFR: Stable - Counseled on avoiding NSAIDs, adequate hydration 6. Essential hypertension - ICD9: 401.9, ICD10: I10 Diet controlled. - Encouraged sodium restriction, DASH or Mediterranean diet - Recommend regular aerobic exercise 7. Paroxysmal atrial fibrillation (HCC) - ICD9: 427.31, ICD10: I48.0 - Discussion about warfarin vs. Apixiban. He agreed to continue DOAC. Oskar Leger [facility]12-09-2024 History of Present illness Narrative* Oskar Leger MD - 05/20/2024 12:41 PM EST This note was created using NoteWriter. Subjective Rj Leung is a 83 year old male here with Toyr. He was asking about going back to warfarininstead of apixiban. His hypertension was diet controlled. He had no new concerns. They were leaving for [place] in a few weeks. He gets vein surgeries in [place]. Review of Systems Constitutional: Negative for activity change, appetite change, fatigue and unexpected weight change. Respiratory: Negative for cough and shortness of breath. Cardiovascular: Positive for leg swelling. Negative for chest pain and palpitations. Gastrointestinal: Negative for blood in stool. Genitourinary: Negative for hematuria. Neurological: Negative for dizziness and headaches. ACTIVE PROBLEM LIST Bph Without Obstruction/Lower Urinary Tract Symptoms Paroxysmal Atrial Fibrillation (Hcc) Varicose Veins of Leg With Edema, Bilateral YAJAIRA (obstructive sleep apnea) on CPAP Lichen Planus Essential Hypertension Obesity, Class I, Bmi 30-34.9 Anemia due to stage 3b chronic kidney disease (HCC) Social History Tobacco Use Smoking status: Never Smokeless tobacco: Never Substance Use Topics Alcohol use: No Drug use: No Current Outpatient Medications Medication Sig fluticasone (FLONASE ALLERGY RELIEF) 50 mcg/actuation nasal spray Use 1 Armour in each nostril once daily. ergocalciferol, vitamin D2, (VITAMIN D2 ORAL) Take by mouth. ELIQUIS 5 mg tab(s) multivitamin tablet Take 1 tablet by mouth once daily. No current facility-administered medications for this visit. Objective BP 128/64 (BP Site: Left Arm, BP Position: Sitting, BP Cuff Size: Large Adult) Pulse 70 Temp 36.8 C (98.2 F) (Temporal) Ht 185.4 cm (6' 1) Wt 100.1 kg (220 lb 10.9 oz) BMI 29.12 kg/m Physical Exam Constitutional: Appearance: He is not ill-appearing. HENT: Head: Normocephalic. Eyes: Conjunctiva/sclera: Conjunctivae normal. Cardiovascular: Rate and Rhythm: Normal rate and regular rhythm. Occasional Extrasystoles are present. Heart sounds: S1 normal and S2 normal. Pulmonary: Breath sounds: Normal breath sounds. Abdominal: General: There is no distension. Tenderness: There is no abdominal tenderness. Musculoskeletal: Right lower le+ Pitting Edema present. Left lower le+ Pitting Edema present. Neurological: General: No focal deficit present. Mental Status: He is alert. Assessment and Plan 1. Medicare annual wellness visit, subsequent - ICD9: V70.0, ICD10: Z00.00 (primary diagnosis) - See wellness visit. 2. Need for influenza vaccination - ICD9: V04.81, ICD10: Z23 - INFLUENZA VACCINE, PRSV FREE, AGE 65+ YR, HIGH DOSE, TRIVALENT (FLUZONE HIGH-DOSE) 3. Screening for depression - ICD9: V79.0, ICD10: Z13.31 - DEPRESSION SCREENING 4. Encounter for screening examination for other mental health and behavioral disorders - ICD9: V79.8, ICD10: Z13.39 - ANXIETY SCREENING 5. Anemia due to stage 3b chronic kidney disease (HCC) - ICD9: 285.21, 585.3, ICD10: N18.32, D63.1 - eGFR: Stable - Counseled on avoiding NSAIDs, adequate hydration 6. Essential hypertension - ICD9: 401.9, ICD10: I10 Diet controlled. - Encouraged sodium restriction, DASH or Mediterranean diet - Recommend regular aerobic exercise 7. Paroxysmal atrial fibrillation (HCC) - ICD9: 427.31, ICD10: I48.0 - Discussion about warfarin vs. Apixiban. He agreed to continue DOAC. Oskar Leger MD * Oskar Leger MD - 05/20/2024 12:29 PM EST Images from the original note were not included. Rj Leung is a 83 year old male here for a Medicare wellness visit. Medicare Health Risk Assessment General Health Good Exercise: Minutes/Day 10 min Exercise: Days/Week 7 days Alcohol: Daily Use Never Alcohol: Drinks/Day Patient does not drink Alcohol: 6 or more drinks Never Feel off balance No Concerns: Teeth/Dentures No Concerns: Sexual function No Troubled by feelings None of the above Frequency: Eating healthy diet Nearly every day ADLs requiring help None of the above Safety precautions in home/vehicle Yes Smoke, vape, chews tobacco No Difficulty hearing Yes, I wear a hearing aid Difficulty seeing No Current Providers Specialists: I have reviewed specialist-related care of the patient in the medical record. Current care team: Patient Care Team: Oskar Leger MD as PCP - General (Internal Medicine) Bina Rondon APRN.CLAUDIA as Marine Erector (Internal Medicine) Outside specialists seen: Samia Kuo MD (Cardiology, [facility]) Sameer Prado MD ([facility]) Keshia Campbell MD ([facility]) Rj Shafer MD ([facility]) Elías Barron MD ([facility]) Dr. Wakefield, Vascular surgery in [place]. Medical/Family history review Reviewed and updated problem list, medical/surgical/family/social history, medications, and allergies. Opioid use review Opioid Medications (last 90 days) No data to display Depression Screening Cognitive screening Mini Cog Score: 4 Cognitive screening reviewed and No further action needed (score 3-5). Functional Observation Was the patient's Timed Up & Go test unsteady or >= 12 seconds? No Advance Care Planning Patient did not wish or was not able to name a surrogate decision maker or provide an advance care plan Measurements BP 140/68 (BP Site: Left Arm, BP Position: Sitting, BP Cuff Size: Large Adult) Pulse 70 Temp 36.8 C (98.2 F) (Temporal) Ht 185.4 cm (6' 1) Wt 100.1 kg (220 lb 10.9 oz) BMI 29.12 kg/m Vision Screening: Follows with optometry/ophthalmology Right: 20/50 Left: 20/ 50 Both: 20/50 Assessment/Plan Medicare annual wellness visit, subsequent (Z00.00) - Counseled on healthy diet and regular exercise - Fall avoidance information provided - Personalized prevention plan provided - Discussed need for and benefit of weight loss. BMI 29.12 kg/(m^2) - Vaccine recommendations reviewed. [facility] NoteHNO ID: [id number] Author: OSKAR LEGER MD Service: ? Author Type: Physician Type: Progress Notes Filed: 05/20/2024 13:52 Note Text: Rj Leung is a 83 year old male here for a Medicare wellness visit. Medicare Health Risk Assessment General Health Good Exercise: Minutes/Day 10 min Exercise: Days/Week 7 days Alcohol: Daily Use Never Alcohol: Drinks/Day Patient does not drink Alcohol: 6 or more drinks Never Feel off balance No Concerns: Teeth/Dentures No Concerns: Sexual function No Troubled by feelings None of the above Frequency: Eating healthy diet Nearly every day ADLs requiring help None of the above Safety precautions in home/vehicle Yes Smoke, vape, chews tobacco No Difficulty hearing Yes, I wear a hearing aid Difficulty seeing No Current Providers Specialists: I have reviewed specialist-related care of the patient in the medical record. Current care team: Patient Care Team: Oskar Leger MD as PCP - General (Internal Medicine) Bina Rondon APRN.MEDICAL LANGUAGE SPECIALIST as Marine Erector (Internal Medicine) Outside specialists seen: Samia Kuo MD (Cardiology, [facility]) Sameer Prado MD ([facility]) Keshia Campbell MD ([facility]) Rj Shafer MD ([facility]) Elías Barron MD ([facility]) Dr. Wakefield, Vascular surgery in [place]. Medical/Family history review Reviewed and updated problem list, medical/surgical/family/social history, medications, and allergies. Opioid use review Opioid Medications (last 90 days) No data to display Depression Screening Cognitive screening Mini Cog Score: 4 Cognitive screening reviewed and No further action needed (score 3-5). Functional Observation Was the patient's Timed Up AND Go test unsteady or >= 12 seconds? No Advance Care Planning Patient did not wish or was not able to name a surrogate decision maker or provide an advance care plan Measurements BP 140/68 (BP Site: Left Arm, BP Position: Sitting, BP Cuff Size: Large Adult) Pulse 70 Temp 36.8 ?C (98.2 ?F) (Temporal) Ht 185.4 cm (6' 1) Wt 100.1 kg (220 lb 10.9 oz) BMI 29.12 kg/m? Vision Screening: Follows with optometry/ophthalmology Right: 20/50 Left: 20/ 50 Both: 20/50 Assessment/Plan Medicare annual wellness visit, subsequent (Z00.00) - Counseled on healthy diet and regular exercise - Fall avoidance information provided - Personalized prevention plan provided - Discussed need for and benefit of weight loss. BMI 29.12 kg/(m2) - Vaccine recommendations reviewed.[facility]11-24-2024 NoteHNO ID: [id number] Author: JAGDISH BENDER APRN.CLAUDIA Service: ? Author Type: Nurse Practitioner Type: Progress Notes Filed: 05/05/2024 15:00 Note Text: Subjective HPI Nontoxic-appearing male presents urgent care chief complaint bleeding in the left eye. Patient states first noticed this yesterday. No pain. Was sneezing a lot. No eye injury. No flashes light or floaters. No visual acuity changes. Risk factors Eliquis. No fevers. Past medical history prescription medications allergies reviewed. 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 Other psoriasis 01/29/2013 RECURRENT CELLULITIS 01/22/2007 Subdural hematoma, post-traumatic (HCC) 01/29/2011 01-29-11, resolved post fall off ladder Thrombocytopenia ([facility]) 06/07/2012 Varicose veins of lower extremities with other complications 03/11/2011 VENOUS INSUFFICIENCY NOS 12/05/2005 PAST SURGICAL HISTORY Procedure Laterality Date CARDIAC CATH 11/14/2018 COLONOSCOPY FLX DX W/COLLJ SPEC WHEN PFRMD 10/31/2017 Colonoscopy COLONOSCOPY W/BIOPSY SINGLE/MULTIPLE 04/14/06 Sigmoid diverticulitis PAST SURGICAL HISTORY OF 1971 R leg varicose vein removal THYROID FINE NEEDLE ASPIRATION 02/06/06 U/S guided right mid and superior pole THYROID RIGHT FINE NEEDLE ASPIRATION 11/22/08 U/S FNA right thyroid x 2 nodules TONSILLECTOMY AND ADENOIDECTOMY TYMPANOSTOMY LOCAL/TOPICAL ANESTHESIA 01/2014 Left ear. TYMPANOSTOMY LOCAL/TOPICAL ANESTHESIA Left 03/06/2018 replacement ALLERGIES Levaquin [Levofloxacin], Penicillins, and Ultravist [Iopromide] MEDICATIONS fluticasone (FLONASE ALLERGY RELIEF) 50 mcg/actuation nasal spray Use 1 Armour in each nostril once daily. ergocalciferol, vitamin D2, (VITAMIN D2 ORAL) Take by mouth. ELIQUIS 5 mg tab(s) multivitamin tablet Take 1 tablet by mouth once daily. FAMILY HISTORY Problem Relation Age of Onset Thyroid Mother Heart Father enlarged heart Arthritis Brother knee replaced Social History Tobacco Use Smoking status: Never Smokeless tobacco: Never Substance Use Topics Alcohol use: No Drug use: No BP 122/68 Pulse 64 Temp 36.2 ?C (97.2 ?F) Resp 16 Wt 101 kg (222 lb 10.6 oz) SpO2 98% BMI 29.35 kg/m? Review of Systems Constitutional: Negative for chills, fever and malaise/fatigue. HENT: Negative for congestion, ear discharge, ear pain, sinus pain and sore throat. Eyes: Negative for blurred vision, double vision, photophobia, pain, discharge and redness. Respiratory: Negative for cough, hemoptysis, sputum production, shortness of breath, wheezing and stridor. Cardiovascular: Negative for chest pain. Gastrointestinal: Negative for abdominal pain, diarrhea, nausea and vomiting. Musculoskeletal: Negative for myalgias. Skin: Negative for itching and rash. Neurological: Negative for dizziness and headaches. Objective Physical Exam Constitutional: General: He is not in acute distress. Appearance: He is not toxic-appearing. HENT: Head: Normocephalic. Nose: Nose normal. Eyes: General: Lids are normal. Vision grossly intact. Left eye: No foreign body, discharge or hordeolum. Conjunctiva/sclera: Right eye: No hemorrhage. Left eye: Hemorrhage present. No chemosis or exudate. Pupils: Pupils are equal, round, and reactive to light. Comments: Subconjunctival hemorrhage noted left eye highlighted area. No hyphema. No surrounding erythema edema noted. Cardiovascular: Rate and Rhythm: Normal rate. Pulmonary: Effort: Pulmonary effort is normal. No respiratory distress. Musculoskeletal: Cervical back: Normal range of motion. Skin: General: Skin is warm and dry. Neurological: General: No focal deficit present. Mental Status: He is alert. ASSESSMENT/PLAN: 1. Subconjunctival hemorrhage of left eye - ICD9: 372.72, ICD10: H11.32 No eye pain. Visual acuity normal. Treat supportively. ER evaluation criteria discussed. Reach out to ophthalmology morning for further evaluation care Patient was educated on supportive therapies. Patient will follow up with primary care provider as needed. Patient was instructed to immediately proceed to emergency room for any new, worsening, or symptoms lasting longer than anticipated. The patient's clinical presentation is otherwise unremarkable at this time. Based on (more content not included)...[facility] 05-05-2024 History of Present illness Narrative* Jagdish Bender, ROSALINDA.MEDICAL LANGUAGE SPECIALIST - 05/05/2024 2:44 PM EST Images from the original note were not included. Subjective HPI Nontoxic-appearing male presents urgent care chief complaint bleeding in the left eye. Patient states first noticed this yesterday. No pain. Was sneezing a lot. No eye injury. No flashes light or floaters. No visual acuity changes. Risk factors Eliquis. No fevers. Past medical history prescription medications allergies reviewed. 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 Other psoriasis 01/29/2013 RECURRENT CELLULITIS 01/22/2007 Subdural hematoma, post-traumatic (HCC) 01/29/2011 01-29-11, resolved post fall off ladder Thrombocytopenia ([facility]) 06/07/2012 Varicose veins of lower extremities with other complications 03/11/2011 VENOUS INSUFFICIENCY NOS 12/05/2005 PAST SURGICAL HISTORY Procedure Laterality Date CARDIAC CATH 11/14/2018 COLONOSCOPY FLX DX W/COLLJ SPEC WHEN PFRMD 10/31/2017 Colonoscopy COLONOSCOPY W/BIOPSY SINGLE/MULTIPLE 04/14/06 Sigmoid diverticulitis PAST SURGICAL HISTORY OF 1971 R leg varicose vein removal THYROID FINE NEEDLE ASPIRATION 02/06/06 U/S guided right mid and superior pole THYROID RIGHT FINE NEEDLE ASPIRATION 11/22/08 U/S FNA right thyroid x 2 nodules TONSILLECTOMY & ADENOIDECTOMY <AGE 12 1952 TYMPANOSTOMY LOCAL/TOPICAL ANESTHESIA 01/2014 Left ear. TYMPANOSTOMY LOCAL/TOPICAL ANESTHESIA Left 03/06/2018 replacement ALLERGIES Levaquin [Levofloxacin], Penicillins, and Ultravist [Iopromide] MEDICATIONS fluticasone (FLONASE ALLERGY RELIEF) 50 mcg/actuation nasal spray Use 1 Armour in each nostril once daily. ergocalciferol, vitamin D2, (VITAMIN D2 ORAL) Take by mouth. ELIQUIS 5 mg tab(s) multivitamin tablet Take 1 tablet by mouth once daily. FAMILY HISTORY Problem Relation Age of Onset Thyroid Mother Heart Father enlarged heart Arthritis Brother knee replaced Social History Tobacco Use Smoking status: Never Smokeless tobacco: Never Substance Use Topics Alcohol use: No Drug use: No BP 122/68 Pulse 64 Temp 36.2 C (97.2 F) Resp 16 Wt 101 kg (222 lb 10.6 oz) SpO2 98% BMI29.35 kg/m Review of Systems Constitutional: Negative for chills, fever and malaise/fatigue. HENT: Negative for congestion, ear discharge, ear pain, sinus pain and sore throat. Eyes: Negative for blurred vision, double vision, photophobia, pain, discharge and redness. Respiratory: Negative for cough, hemoptysis, sputum production, shortness of breath, wheezing and stridor. Cardiovascular: Negative for chest pain. Gastrointestinal: Negative for abdominal pain, diarrhea, nausea and vomiting. Musculoskeletal: Negative for myalgias. Skin: Negative for itching and rash. Neurological: Negative for dizziness and headaches. Objective Physical Exam Constitutional: General: He is not in acute distress. Appearance: He is not toxic-appearing. HENT: Head: Normocephalic. Nose: Nose normal. Eyes: General: Lids are normal. Vision grossly intact. Left eye: No foreign body, discharge or hordeolum. Conjunctiva/sclera: Right eye: No hemorrhage. Left eye: Hemorrhage present. No chemosis or exudate. Pupils: Pupils are equal, round, and reactive to light. Comments: Subconjunctival hemorrhage noted left eye highlighted area. No hyphema. No surrounding erythema edema noted. Cardiovascular: Rate and Rhythm: Normal rate. Pulmonary: Effort: Pulmonary effort is normal. No respiratory distress. Musculoskeletal: Cervical back: Normal range of motion. Skin: General: Skin is warm and dry. Neurological: General: No focal deficit present. Mental Status: He is alert. ASSESSMENT/PLAN: 1. Subconjunctival hemorrhage of left eye - ICD9: 372.72, ICD10: H11.32 No eye pain. Visual acuity normal. Treat supportively. ER evaluation criteria discussed. Reach out to ophthalmology morning for further evaluation care Patient was educated on supportive therapies. Patient will follow up with primary care provider as needed. Patient was instructed to immediately proceed to emergency room for any new, worsening, or symptoms lasting longer than anticipated. The patient's clinical presentation is otherwise unremarkable at this time. Based on exam and clinical finding, the patient is stable for discharge. Plan of care was discussed with patient. Patient verbalizes understanding and agrees to plan of care. This note was generated using [employer] software. It may contain errors in wording, punctuation, or spelling. Jagdish Bender APRN.MEDICAL LANGUAGE SPECIALIST documented [facility] NoteHNO ID: [id number] Author: JAGDISH BENDER APRN.MEDICAL LANGUAGE SPECIALIST Service: ? Author Type: Nurse Practitioner Type: Progress Notes Filed: 02/23/2024 10:33 Note Text: Subjective HPI Nontoxic-appearing male presents urgent care chief complaint rhinorrhea. Duration of symptoms 6 days. Associated symptoms nasal congestion. Has used some Zyrtec this has helped some. No other OTC medications. Overall feels well. Denies any fever body aches chills productive cough chest pain shortness of breath pleuritic pain hemoptysis nausea vomiting abdominal pain change in bowel or bladder habits. Past medical history prescription medication use and allergies reviewed. 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 Other psoriasis 01/29/2013 RECURRENT CELLULITIS 01/22/2007 Subdural hematoma, post-traumatic (HCC) 01/29/2011 01-29-11, resolved post fall off ladder Thrombocytopenia (HCC) 06/07/2012 Varicose veins of lower extremities with other complications 03/11/2011 VENOUS INSUFFICIENCY NOS 12/05/2005 PAST SURGICAL HISTORY Procedure Laterality Date CARDIAC CATH 11/14/2018 COLONOSCOPY FLX DX W/COLLJ SPEC WHEN PFRMD 10/31/2017 Colonoscopy COLONOSCOPY W/BIOPSY SINGLE/MULTIPLE 04/14/06 Sigmoid diverticulitis PAST SURGICAL HISTORY OF 1971 R leg varicose vein removal THYROID FINE NEEDLE ASPIRATION 02/06/06 U/S guided right mid and superior pole THYROID RIGHT FINE NEEDLE ASPIRATION 11/22/08 U/S FNA right thyroid x 2 nodules TONSILLECTOMY AND ADENOIDECTOMY TYMPANOSTOMY LOCAL/TOPICAL ANESTHESIA 01/2014 Left ear. TYMPANOSTOMY LOCAL/TOPICAL ANESTHESIA Left 03/06/2018 replacement ALLERGIES Levaquin [Levofloxacin], Penicillins, and Ultravist [Iopromide] MEDICATIONS ergocalciferol, vitamin D2, (VITAMIN D2 ORAL) Take by mouth. ELIQUIS 5 mg tab(s) multivitamin tablet Take 1 tablet by mouth once daily. FAMILY HISTORY Problem Relation Age of Onset Thyroid Mother Heart Father enlarged heart Arthritis Brother knee replaced Social History Tobacco Use Smoking status: Never Smokeless tobacco: Never Substance Use Topics Alcohol use: No Drug use: No BP 145/75 Pulse 68 Temp 36.3 ?C (97.4 ?F) Resp 18 Wt 97.1 kg (214 lb 1.1 oz) SpO2 99% BMI 28.22 kg/m? Review of Systems Constitutional: Negative for chills, fever and malaise/fatigue. HENT: Positive for congestion. Negative for ear discharge, ear pain, sinus pain and sore throat. Eyes: Negative for blurred vision, pain, discharge and redness. Respiratory: Negative for cough, hemoptysis, sputum production, shortness of breath, wheezing and stridor. Cardiovascular: Negative for chest pain. Gastrointestinal: Negative for abdominal pain, diarrhea, nausea and vomiting. Musculoskeletal: Negative for myalgias. Skin: Negative for itching and rash. Neurological: Negative for dizziness and headaches. Objective Physical Exam Constitutional: General: He is not in acute distress. Appearance: He is not diaphoretic. HENT: Head: Normocephalic. Jaw: No trismus, tenderness, swelling or pain on movement. Nose: Congestion present. Mouth/Throat: Mouth: Mucous membranes are moist. Pharynx: Oropharynx is clear. Uvula midline. No pharyngeal swelling, oropharyngeal exudate, posterior oropharyngeal erythema or uvula swelling. Eyes: Conjunctiva/sclera: Conjunctivae normal. Pupils: Pupils are equal, round, and reactive to light. Cardiovascular: Rate and Rhythm: Normal rate and regular rhythm. Heart sounds: Normal heart sounds. Pulmonary: Effort: Pulmonary effort is normal. No tachypnea, accessory muscle usage or respiratory distress. Breath sounds: Normal breath sounds. No stridor. No wheezing, rhonchi or rales. Musculoskeletal: Cervical back: Normal range of motion and neck supple. No edema, erythema, rigidity or tenderness. No pain with movement. Normal range of motion. Lymphadenopathy: Cervical: No cervical adenopathy. Skin: General: Skin is warm and dry. Neurological: Mental Status: He is alert and oriented to person, place, and time. ASSESSMENT/PLAN: 1. Rhinorrhea - ICD9: 478.19, ICD10: J34.89 Diagnosed with rhinorrhea. No evidence of bacterial infection. Treat with Flonase. Patient was educated on supportive therapies. Patient will follow up with (more content not included)...[facility]09-13-2024 History of Present illness Narrative* Jagdish Bender, [facility]IN[facility] - 02/23/2024 10:22 AM EDT Subjective HPI Nontoxic-appearing male presents urgent care chief complaint rhinorrhea. Duration of symptoms 6 days. Associated symptoms nasal congestion. Has used some Zyrtec this has helped some. No other OTC medications. Overall feels well. Denies any fever body aches chills productive cough chest pain shortness of breath pleuritic pain hemoptysis nausea vomiting abdominal pain change in bowel or bladder habits. Past medical history prescription medication use and allergies reviewed. .Patient presents with: Nasal Congestion: Runny nose, sinus congestion x6 days PAST MEDICAL HISTORY Diagnosis Date Adrenal adenoma 03/2012 Right Atrial flutter (HCC) 10/23/2006 CKD (chronic kidney disease) stage 3, GFR 30-59 ml/min (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 Other psoriasis 01/29/2013 RECURRENT CELLULITIS 01/22/2007 Subdural hematoma, post-traumatic ([facility]) 01/29/2011 01-29-11, resolved post fall off ladder Thrombocytopenia ([facility]) 06/07/2012 Varicose veins of lower extremities with other complications 03/11/2011 VENOUS INSUFFICIENCY NOS 12/05/2005 PAST SURGICAL HISTORY Procedure Laterality Date CARDIAC CATH 11/14/2018 COLONOSCOPY FLX DX W/COLLJ SPEC WHEN PFRMD 10/31/2017 Colonoscopy COLONOSCOPY W/BIOPSY SINGLE/MULTIPLE 04/14/06 Sigmoid diverticulitis PAST SURGICAL HISTORY OF 1971 R leg varicose vein removal THYROID FINE NEEDLE ASPIRATION 02/06/06 U/S guided right mid and superior pole THYROID RIGHT FINE NEEDLE ASPIRATION 11/22/08 U/S FNA right thyroid x 2 nodules TONSILLECTOMY & ADENOIDECTOMY <AGE 12 1952 TYMPANOSTOMY LOCAL/TOPICAL ANESTHESIA 01/2014 Left ear. TYMPANOSTOMY LOCAL/TOPICAL ANESTHESIA Left 03/06/2018 replacement ALLERGIES Levaquin [Levofloxacin], Penicillins, and Ultravist [Iopromide] MEDICATIONS ergocalciferol, vitamin D2, (VITAMIN D2 ORAL) Take by mouth. ELIQUIS 5 mg tab(s) multivitamin tablet Take 1 tablet by mouth once daily. FAMILY HISTORY Problem Relation Age of Onset Thyroid Mother Heart Father enlarged heart Arthritis Brother knee replaced Social History Tobacco Use Smoking status: Never Smokeless tobacco: Never Substance Use Topics Alcohol use: No Drug use: No BP 145/75 Pulse 68 Temp 36.3 C (97.4 F) Resp 18 Wt 97.1 kg (214 lb 1.1 oz) SpO2 99% BMI28.22 kg/m Review of Systems Constitutional: Negative for chills, fever and malaise/fatigue. HENT: Positive for congestion. Negative for ear discharge, ear pain, sinus pain and sore throat. Eyes: Negative for blurred vision, pain, discharge and redness. Respiratory: Negative for cough, hemoptysis, sputum production, shortness of breath, wheezing and stridor. Cardiovascular: Negative for chest pain. Gastrointestinal: Negative for abdominal pain, diarrhea, nausea and vomiting. Musculoskeletal: Negative for myalgias. Skin: Negative for itching and rash. Neurological: Negative for dizziness and headaches. Objective Physical Exam Constitutional: General: He is not in acute distress. Appearance: He is not diaphoretic. HENT: Head: Normocephalic. Jaw: No trismus, tenderness, swelling or pain on movement. Nose: Congestion present. Mouth/Throat: Mouth: Mucous membranes are moist. Pharynx: Oropharynx is clear. Uvula midline. No pharyngeal swelling, oropharyngeal exudate, posterior oropharyngeal erythema or uvula swelling. Eyes: Conjunctiva/sclera: Conjunctivae normal. Pupils: Pupils are equal, round, and reactive to light. Cardiovascular: Rate and Rhythm: Normal rate and regular rhythm. Heart sounds: Normal heart sounds. Pulmonary: Effort: Pulmonary effort is normal. No tachypnea, accessory muscle usage or respiratory distress. Breath sounds: Normal breath sounds. No stridor. No wheezing, rhonchi or rales. Musculoskeletal: Cervical back: Normal range of motion and neck supple. No edema, erythema, rigidity or tenderness. No pain with movement. Normal range of motion. Lymphadenopathy: Cervical: No cervical adenopathy. Skin: General: Skin is warm and dry. Neurological: Mental Status: He is alert and oriented to person, place, and time. ASSESSMENT/PLAN: 1. Rhinorrhea - ICD9: 478.19, ICD10: J34.89 Diagnosed with rhinorrhea. No evidence of bacterial infection. Treat with Flonase. Patient was educated on supportive therapies. Patient will follow up with primary care provider as needed. Patient was instructed to immediately proceed to emergency room for any new, worsening, or symptoms lasting longer than anticipated. The patient's clinical presentation is otherwise unremarkable at this time. Based on exam and clinical finding, the patient is stable for discharge. Plan of care was discussed with patient. Patient verbalizes understanding and agrees to plan of care. This note was generated using [employer] software. It may contain errors in wording, punctuation, or spelling. Jagdish Bender APRN.MEDICAL LANGUAGE SPECIALIST documented in [facility]24 NoteHNO ID: [id number] Author: TIEN JOINER MD Service: ? Author Type: Physician Type: Progress Notes Filed: 02/15/2024 10:53 Note Text: Patient presents with: Trauma: Right forearm, had fall x 3 days and fell into wood and received x 5 lacerations HPI: Skin Lesion: Location: right forearm Duration: fell 2 days ago into wood pile and cut his arm Pruritis/Pain: NO Change: none Drainage/blister/pustule/ulceration: bleeds Treatment: Washing with hydrogen peroxide. Applying hydrocortisone 2 gauze pads. MEDICATIONS: ergocalciferol, vitamin D2, (VITAMIN D2 ORAL) Take by mouth. ELIQUIS 5 mg tab(s) multivitamin tablet Take 1 tablet by mouth once daily. ALLERGIES: ALLERGIES Allergen Reactions Levaquin [Levofloxa* Rash Penicillins Rash Ultravist [Iopromid* Other: See Comments Pt sneezed twice after contrast injection. Radiologist notified and evaluated patient. No meds were given and was advised to be pre medicated for future tests. VITALS: BP 144/71 Pulse (!) 57 Temp 36.1 ?C (97 ?F) Resp 18 Wt 99 kg (218 lb 4.1 oz) SpO2 99% BMI 28.77 kg/m? PE: Pleasant, in no acute distress. Accompanied by his . FOREARM: right. 5 parallel transversely oriented skin tears on the ventral aspect ranging from <1cm to 4cm. There is purple macular ecchymosis. No erythema or induration. Full range of motion of wrist, hand, and elbow without pain. Bloody drainage blotted onto Chux pad without active bleeding. ASSESSMENT/PLAN: 1. Skin tear of right forearm without complication, initial encounter - ICD9: 881.00, ICD10: S51.811A No signs of infection. Wound care discussed. Wash with soap and water. Avoid peroxide and overdrying wound. Dressed with bacitracin on nonadherent pad and wrapped with Coban. Tien Joiner, [facility]09-05-2024 History of Present illness Narrative* Tien Joiner MD - 02/15/2024 10:35 AM EDT Patient presents with: Trauma: Right forearm, had fall x 3 days and fell into wood and received x 5 lacerations HPI: Skin Lesion: Location: right forearm Duration: fell 2 days ago into wood pile and cut his arm Pruritis/Pain: NO Change: none Drainage/blister/pustule/ulceration: bleeds Treatment: Washing with hydrogen peroxide. Applying hydrocortisone 2 gauze pads. MEDICATIONS: ergocalciferol, vitamin D2, (VITAMIN D2 ORAL) Take by mouth. ELIQUIS 5 mg tab(s) multivitamin tablet Take 1 tablet by mouth once daily. ALLERGIES: ALLERGIES Allergen Reactions Levaquin [Levofloxa* Rash Penicillins Rash Ultravist [Iopromid* Other: See Comments Pt sneezed twice after contrast injection. Radiologist notified and evaluated patient. No meds weregiven and was advised to be pre medicated for future tests. VITALS: BP 144/71 Pulse (!) 57 Temp 36.1 C (97 F) Resp 18 Wt 99 kg (218 lb 4.1 oz) SpO2 99% BMI28.77 kg/m PE: Pleasant, in no acute distress. Accompanied by his . FOREARM: right. 5 parallel transversely oriented skin tears on the ventral aspect ranging from <1cm to 4cm. There is purple macular ecchymosis. No erythema or induration. Full range of motion of wrist, hand, and elbow without pain. Bloody drainage blotted onto Chux pad without active bleeding. ASSESSMENT/PLAN: 1. Skin tear of right forearm without complication, initial encounter - ICD9: 881.00, ICD10: S51.811A No signs of infection. Wound care discussed. Wash with soap and water. Avoid peroxide and overdrying wound. Dressed with bacitracin on nonadherent pad and wrapped with Coban. Tien Joiner MD documented in [facility]24 Telephone encounter Note * Telephone Encounter - Annabella Bryant LPN - 10/25/2023 7:51 PM EDT Patient notified.Annabella Bryant LPN [facility]05-15-2024 Miscellaneous Notes* Telephone Encounter - Annabella Bryant LPN - 10/25/2023 7:51 PM EDT Patient notified.Annabella Bryant LPN * Telephone Encounter - Laura Gutierrez PA - 10/25/2023 7:00 PM EDT Please let patient know negative for COVID flu RSV documented in this [facility]05-15-[facility]24 Telephone encounter Note * Telephone Encounter - Laura Gutierrez PA - 10/25/2023 7:00 PM EDT Please let patient know negative for COVID flu RSV [facility]05-15-2024 Instructions* Patient Instructions* Laura Gutierrez PA - 10/25/2023 12:18 PM EDT Rest, increase water intake Motrin or Tylenol as needed for fever or pain. Salt water gargles, chloraseptic spray or lozenges as needed for sore throat. Warm beverages, honey. Nasal saline spray as needed Cool mist humidifier at night A cold normally lasts 7-10 days. If your symptoms are lasting longer, develop fever, or worsening by that time instead of improving then return to clinic or follow up with PCP for re-evaluation. Tylenol (generic acetaminophen) 500 mg-2 tabs every 8 hrs. as needed for fever and aches Ibuprofen 600 mg (3-200mg tablets) every 6 hours -Mucinex (generic is fine) Guaifenesin 1200 mg twice daily to help with cough and to thin out mucus documented in this [facility]05-15-2024 History of Present illness Narrative* Scott Tyler RT(R) - 10/25/2023 12:00 PM EDT Radiology Service Progress Note PATIENT NAME: Rj Leung DATE OF SERVICE: October 25, 2023 TIME: 12:07 PM PATIENT IDENTITY VERIFICATION COMPLETED USING TWO (2) IDENTIFIERS: Name and Date of confirmedby patient verbally. FALL SCREENING: Has the patient had 2 falls in the last year or 1 fall with injury or currently using an Ambulatory Assistive Device (Walker, Cane, Wheelchair, Crutches, etc.)? No PATIENT GENDER DATA: Male PATIENT RELEVANT IMPLANT DATA REVIEWED: Yes PATIENT PRESENTS WITH AN IMPLANTABLE OR ATTACHED MICROBIOLOGY MANAGER: No RADIOLOGY DEPARTMENT: General X-ray: Exam(s) Completed: Chest X-Ray PERIPHERAL IV DATA: Not applicable SIGNED BY: RT Salinas(Zoe) October 25, 2023 12:07 PM documented in this encounterWilson [address] Hospital05-15-2024 NoteHNO ID: [id number] Author: SCOTT TYLER RT(Zoe) Service: Radiology Author Type: Technologist Type: Progress Notes Filed: 10/25/2023 12:14 Note Text: Radiology Service Progress Note PATIENT NAME: Rj Leung DATE OF SERVICE: October 25, 2023 TIME: 12:07 PM PATIENT IDENTITY VERIFICATION COMPLETED USING TWO (2) IDENTIFIERS: Name and Date of confirmed by patient verbally. FALL SCREENING: Has the patient had 2 falls in the last year or 1 fall with injury or currently using an Ambulatory Assistive Device (Walker, Cane, Wheelchair, Crutches, etc.)? No PATIENT GENDER DATA: Male PATIENT RELEVANT IMPLANT DATA REVIEWED: Yes PATIENT PRESENTS WITH AN IMPLANTABLE OR ATTACHED MICROBIOLOGY MANAGER: No RADIOLOGY DEPARTMENT: General X-ray: Exam(s) Completed: Chest X-Ray PERIPHERAL IV DATA: Not applicable SIGNED BY: RT Salinas(R) October 25, 2023 12:07 [facility]05-15-2024 NoteHNO ID: [id number] Author: LAURA GUTIERREZ PA Service: ? Author Type: Physician Communicable Disease Specialist Type: Progress Notes Filed: 10/25/2023 12:22 Note Text: This note was created using [employer]. Subjective Rj Leung is a 82 year old male. HPI 82-year-old male presents for cough, congestion x 4 days. Patient states that he started getting a cough about 4 to 5 days ago. He states that he feels like he is congested in his chest. He has been coughing up some phlegm. States that he has a runny nose. He states today it seems more congested than runny after taking an [id number]-kbdhdbr medication. He is unsure what medication he took. No sore throat. No fevers. No sick contacts that he is aware of. He does report he has had a history of pneumonia in the past several years ago. No history of COPD or asthma. No chest pain or shortness of breath. He does report he has some burning in the chest with cough. No other complaint. 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 Other psoriasis 01/29/2013 RECURRENT CELLULITIS 01/22/2007 Subdural hematoma, post-traumatic (HCC) 01/29/2011 01-29-11, resolved post fall off ladder Thrombocytopenia (HCC) 06/07/2012 Varicose veins of lower extremities with other complications 03/11/2011 VENOUS INSUFFICIENCY NOS 12/05/2005 PAST SURGICAL HISTORY Procedure Laterality Date CARDIAC CATH 11/14/2018 COLONOSCOPY FLX DX W/COLLJ SPEC WHEN PFRMD 10/31/2017 Colonoscopy COLONOSCOPY W/BIOPSY SINGLE/MULTIPLE 04/14/06 Sigmoid diverticulitis PAST SURGICAL HISTORY OF 1971 R leg varicose vein removal THYROID FINE NEEDLE ASPIRATION 02/06/06 U/S guided right mid and superior pole THYROID RIGHT FINE NEEDLE ASPIRATION 11/22/08 U/S FNA right thyroid x 2 nodules TONSILLECTOMY AND ADENOIDECTOMY TYMPANOSTOMY LOCAL/TOPICAL ANESTHESIA 01/2014 Left ear. TYMPANOSTOMY LOCAL/TOPICAL ANESTHESIA Left 03/06/2018 replacement ALLERGIES Levaquin [Levofloxacin], Penicillins, and Ultravist [Iopromide] MEDICATIONS ergocalciferol, vitamin D2, (VITAMIN D2 ORAL) Take by mouth. ELIQUIS 5 mg tab(s) multivitamin tablet Take 1 tablet by mouth once daily. FAMILY HISTORY Problem Relation Age of Onset Thyroid Mother Heart Father enlarged heart Arthritis Brother knee replaced Social History Tobacco Use Smoking status: Never Smokeless tobacco: Never Substance Use Topics Alcohol use: No Drug use: No Review of Systems Constitutional: Negative for chills and fever. HENT: Positive for congestion. Negative for sore throat. Respiratory: Positive for cough. Negative for shortness of breath. Gastrointestinal: Negative for diarrhea and vomiting. Objective BP 122/62 Pulse 64 Temp 36.3 ?C (97.4 ?F) Resp 20 Wt 101 kg (222 lb 10.6 oz) SpO2 97% BMI 29.35 kg/m? Physical Exam Vitals and nursing note reviewed. Constitutional: General: He is not in acute distress. Appearance: Normal appearance. He is not toxic-appearing. HENT: Right Ear: Tympanic membrane and ear canal normal. Left Ear: Tympanic membrane and ear canal normal. Nose: Congestion present. Mouth/Throat: Mouth: Mucous membranes are moist. Eyes: Conjunctiva/sclera: Conjunctivae normal. Cardiovascular: Rate and Rhythm: Normal rate and regular rhythm. Pulmonary: Effort: Pulmonary effort is normal. Breath sounds: Examination of the right-lower field reveals rhonchi. Rhonchi present. Comments: Mild rhonchi, cleared with cough. Skin: General: Skin is warm and dry. Neurological: Mental Status: He is alert. Assessment and Plan ASSESSMENT/PLAN: 1. Acute cough - ICD9: 786.2, ICD10: R05.1 - XR CHEST 2V FRONTAL/LAT-no acute abnormality. -Suspect viral illness. -Rx for Tessalon Perles - COVID AND INFLUENZA A/B AND RSV NAAT, ROUTINE -Out of window for Tamiflu and antiviral, but patient would like testing due to exposing others. Diagnosis and treatment plan were discussed and questions were answered to the patient's satisfaction. Pt acknowledged understanding of concepts and follow up plan. Specific signs and symptoms that would indicate the need for higher level of care were discussed in detail warranting prompt ER evaluation. Laura Gutierrez [facility]05-15-2024 History of Present illness Narrative* Laura Gutierrez, PA - 10/25/2023 11:59 AM EDT This note was created using [employer]. Subjective Rj Leung is a 82 year old male. HPI 82-year-old male presents for cough, congestion x 4 days. Patient states that he started getting a cough about 4 to 5 days ago. He states that he feels like he is congested in his chest. He has been coughing up some phlegm. States that he has a runny nose. He states today it seems more congested than runny after taking an bjrg-dug-ymenpir medication. He is unsure what medication he took. No sore throat. No fevers. No sick contacts that he is aware of. He does report he has had a history of pneumonia in the past several years ago. No history of COPD or asthma. No chest pain or shortness ofbreath. He does report he has some burning in the chest with cough. No other complaint. 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 Other psoriasis 01/29/2013 RECURRENT CELLULITIS 01/22/2007 Subdural hematoma, post-traumatic (HCC) 01/29/2011 01-29-11, resolved post fall off ladder Thrombocytopenia (HCC) 06/07/2012 Varicose veins of lower extremities with other complications 03/11/2011 VENOUS INSUFFICIENCY NOS 12/05/2005 PAST SURGICAL HISTORY Procedure Laterality Date CARDIAC CATH 11/14/2018 COLONOSCOPY FLX DX W/COLLJ SPEC WHEN PFRMD 10/31/2017 Colonoscopy COLONOSCOPY W/BIOPSY SINGLE/MULTIPLE 04/14/06 Sigmoid diverticulitis PAST SURGICAL HISTORY OF 1971 R leg varicose vein removal THYROID FINE NEEDLE ASPIRATION 02/06/06 U/S guided right mid and superior pole THYROID RIGHT FINE NEEDLE ASPIRATION 11/22/08 U/S FNA right thyroid x 2 nodules TONSILLECTOMY & ADENOIDECTOMY <AGE 12 1952 TYMPANOSTOMY LOCAL/TOPICAL ANESTHESIA 01/2014 Left ear. TYMPANOSTOMY LOCAL/TOPICAL ANESTHESIA Left 03/06/2018 replacement ALLERGIES Levaquin [Levofloxacin], Penicillins, and Ultravist [Iopromide] MEDICATIONS ergocalciferol, vitamin D2, (VITAMIN D2 ORAL) Take by mouth. ELIQUIS 5 mg tab(s) multivitamin tablet Take 1 tablet by mouth once daily. FAMILY HISTORY Problem Relation Age of Onset Thyroid Mother Heart Father enlarged heart Arthritis Brother knee replaced Social History Tobacco Use Smoking status: Never Smokeless tobacco: Never Substance Use Topics Alcohol use: No Drug use: No Review of Systems Constitutional: Negative for chills and fever. HENT: Positive for congestion. Negative for sore throat. Respiratory: Positive for cough. Negative for shortness of breath. Gastrointestinal: Negative for diarrhea and vomiting. Objective BP 122/62 Pulse 64 Temp 36.3 C (97.4 F) Resp 20 Wt 101 kg (222 lb 10.6 oz) SpO2 97% BMI29.35 kg/m Physical Exam Vitals and nursing note reviewed. Constitutional: General: He is not in acute distress. Appearance: Normal appearance. He is not toxic-appearing. HENT: Right Ear: Tympanic membrane and ear canal normal. Left Ear: Tympanic membrane and ear canal normal. Nose: Congestion present. Mouth/Throat: Mouth: Mucous membranes are moist. Eyes: Conjunctiva/sclera: Conjunctivae normal. Cardiovascular: Rate and Rhythm: Normal rate and regular rhythm. Pulmonary: Effort: Pulmonary effort is normal. Breath sounds: Examination of the right-lower field reveals rhonchi. Rhonchi present. Comments: Mild rhonchi, cleared with cough. Skin: General: Skin is warm and dry. Neurological: Mental Status: He is alert. Assessment and Plan ASSESSMENT/PLAN: 1. Acute cough - ICD9: 786.2, ICD10: R05.1 - XR CHEST 2V FRONTAL/LAT-no acute abnormality. -Suspect viral illness. -Rx for Tessalon Perles - COVID & INFLUENZA A/B & RSV NAAT, ROUTINE -Out of window for Tamiflu and antiviral, but patient would like testing due to exposing others. Diagnosis and treatment plan were discussed and questions were answered to the patient's satisfaction. Pt acknowledged understanding of concepts and follow up plan. Specific signs and symptoms that would indicate the need for higher level of care were discussed in detail warranting prompt ER evaluation. PHUONG Ordonez * Laura Gutierrez PA - 10/25/2023 11:58 AM EDT s documented [facility]24 NoteHNO ID: [id number] Author: LAURA GUTIERREZ PA Service: ? Author Type: Physician Communicable Disease Specialist Type: Progress Notes Filed: 10/25/2023 12:22 Note Text: [facility]01-06-2024 History of Present illness Narrative* Scott Tyler RT(R) - 06/17/2023 10:30 AM EST Radiology Service Progress Note PATIENT NAME: Rj Leung DATE OF SERVICE: June 17, 2023 TIME: 10:25 AM PATIENT IDENTITY VERIFICATION COMPLETED USING TWO (2) IDENTIFIERS: Name and Date of confirmedby patient verbally. FALL SCREENING: Has the patient had 2 falls in the last year or 1 fall with injury or currently using an Ambulatory Assistive Device (Walker, Cane, Wheelchair, Crutches, etc.)? No PATIENT GENDER DATA: Male PATIENT RELEVANT IMPLANT DATA REVIEWED: Yes RADIOLOGY DEPARTMENT: General X-ray: Exam(s) Completed: Lower Extremity X- Ray(s): Knee, AP / Lat / Tunne / Merchant Left and Wt. Bearing PERIPHERAL IV DATA: Not applicable SIGNED BY: RT Salinas(R) June 17, 2023 10:25 AM documented in [address] [facility]11-30-2023 Instructions* Patient Instructions* Bina Chu APRN.MEDICAL LANGUAGE SPECIALIST - 05/11/2023 12:13 PM EST Screening schedule The following prevention plan is recommended: RSV Vaccine(1 - 1-dose 60+ series) Never done Shingrix Vaccine(2 of 3) due on 03/04/2011 DTaP,Tdap,Td Vaccine(1 - Tdap) due on 05/11/2022 Covid-19 Vaccine(3 - 2022-24 season) due on 02/10/2023 WHAT YOU CAN DO TO PREVENT FALLS Many falls can be prevented. By making some changes, you can lower your chances of falling. Four things YOU can do to prevent falls for you* and your caregiver 1. Begin a regular exercise program Exercise is one of the most important ways to lower your chances of falling. It makes you stronger and helps you feel better. Exercises that improve balance and coordination (like Karl Chi) are the most helpful. Lack of exercise leads to weakness and increases your chances of falling. Ask your doctor or health care provider about the best type of exercise program for you. 2. Have your health care provider review your medicines Have your doctor or pharmacist review all the medicines you take, even opfi-eeg-bukdmnv medicines. As you get older, the way medicines work in your body can change. Some medicines, or combinations of medicines, can make you sleepy or dizzy andcan cause you to fall. 3. Have your vision checked Have your eyes checked by an eye doctor at least once a year. You may be wearing the wrong glasses or have a condition like glaucoma or cataracts that limits your vision. Poor vision can increase your chances of falling. 4. Make your home safer About half of all falls happen at home. To make your home safer: Remove things you can trip over (like papers, books, clothes, and shoes) from stairs and places where you walk. Remove small throw rugs or use double-sided tape to keep the rugs from slipping. Keep items you use often in cabinets you can reach easily without using a step stool. Have grab bars put in next to your toilet and in the tub or shower. Use non-slip mats in the bathtub and on shower floors. Improve the lighting in your home. As you get older, you need brighter lights to see well. Hang light-weight curtains or shades to reduce glare. Have handrails and lights put in on all staircases. Wear shoes both inside and outside the house. Avoid going barefoot or wearing slippers. For more information, contact: Centers for Disease Control and Prevention www.cdc.gov/injury * This information may not apply if you have certain medical conditions. documented in this [facility]Wilson [facility]11-30-2023 History of Present illness Narrative* Bina Chu APRN.CNP - 05/11/2023 12:12 PM EST Rj Leung is a 82 year old male here for a Medicare wellness visit. Health Risk Assessment In general, health is: Very good Concerns with tiredness, difficulties with sexual function, balance, teeth/dentures: Not at all [place] anxious, stressed, angry, irritable, lonely, isolated, or had thoughts of hurting themself: Not at all Has little interest or pleasure in doing things: Not at all Bothered by feeling down, depressed, or hopeless: Not at all Needs help with grocery shopping, cooking, housework, bathing, grooming, dressing, eating, sitting or standing, walking, using the toilet, handling finances, taking medications, using the telephone, or driving: No Following safety precautions in the home environment and vehicle: removed throw rugs from floors, installed grab bars in the bathroom, handrails in stairwells, having adequate lighting, wearing seatbelt at all times?: Yes Smokes cigarettes, vapes, or chew tobacco: No Eats healthy foods including fruits, vegetables, whole grains, and fiber-rich foods: Nearly every day Number of days per week engages in exercise: 3 days Average alcohol consumption: Never Current Providers Specialists: I have reviewed specialist-related care of the patient in the medical record. Current care team: Patient Care Team: Oskar Leger MD as PCP - General (Internal Medicine) Dr. Kennedy, vascular surgeon Outside specialists seen: Dr. Kuo, Heart Group. Dr. Campbell, nephrology. Dr. Prado, dermatology. Dr. Barron, ophthalmology. Dr. Shafer, sleep medicine. Medical/Family history review Reviewed and updated problem list, medical/surgical/family/social history, medications, and allergies. Opioid use review Opioid Medications (last 90 days) Some values may be hidden. Unless noted otherwise, only the newest values recorded on each date aredisplayed. Opioid Medications No data to display. Depression screening Depression Screening PHQ-2 Score 05/11/2023 0 Depression screening tool completed and reviewed. Based on score and interview, patient is not at risk for depression. Screening tool discussed with patient, and I recommended no further interventionat this time. Cognitive screening Mini Cog Score: 4 Cognitive screening reviewed and no further action needed (score 3-5) Functional Observation Was the patient's timed Up & Go test unsteady or ? 12 seconds? No Advance Care Planning Patient did not wish or was not able to name a surrogate decision maker or provide an advance care plan Measurements BP 140/72 Pulse 60 Resp 18 Ht 6' 1.031 (1.86m) Wt 216 lb (98.0kg) SpO2 96% BMI 28.47 kg/(m^2). Additional screenings: No results found. Assessment/Plan Medicare annual wellness visit, subsequent (Z00.00) - Counseled on healthy diet and regular exercise - Fall avoidance information provided - Personalized prevention plan provided Bina Chu APRN.CNP documented in this [facility]Wilson [facility]11-12-2023 Miscellaneous Notes* Telephone Encounter - GeraldineMariana - 04/23/2023 12:14 PM EST [facility] patient. Mariana Chandler documented in this encounterWilson [facility] Hospital11-12-2023 Instructions* Patient Instructions* Tanya Echols APRN.CNP - 04/23/2023 9:55 AM EST Fact Sheet for Patients And Caregivers Emergency Use Authorization (EUA) Of LAGEVRIO (molnupiravir) capsules For Coronavirus Disease 2019 (COVID-19) What is the most important information I should know about LAGEVRIO? LAGEVRIO may cause serious side effects, including: LAGEVRIO may cause harm to your unborn baby. It is not known if LAGEVRIO will harm your baby if youtake LAGEVRIO during . LAGEVRIO is not recommended for use in . LAGEVRIO has not been studied in . LAGEVRIO was studied in animals only. When LAGEVRIO was given to animals, LAGEVRIO caused harm to their unborn babies. You and your healthcare provider may decide that you should take LAGEVRIO during if thereare no other COVID-19 treatment options approved or authorized by the FDA that are accessible or clinically appropriate for you. If you and your healthcare provider decide that you should take LAGEVRIO during , you and your healthcare provider should discuss the known and potential benefits and the potential risks of taking LAGEVRIO during . For individuals who are able to become : You should use a reliable method of control (contraception) consistently and correctly duringtreatment with LAGEVRIO and for 4 days after the last dose of LAGEVRIO. Talk to your healthcare provider about reliable control methods. Before starting treatment with LAGEVRIO your healthcare provider may do a test to see if you are before starting treatment with LAGEVRIO. Tell your healthcare provider right away if you become or think you may be duringtreatment with LAGEVRIO. Registry: There is a registry for individuals who take LAGEVRIO during . The purpose of this program is to collect information about the health of you and your baby. If you are or become during treatment with LAGEVRIO, you are encouraged to reportyour use of LAGEVRIO during to this registry at https://covid-pr.i-Nalysis.Resource Interactive or . For individuals who are sexually active with partners who are able to become : It is not known if LAGEVRIO can affect sperm. While the risk is regarded as low, animal studies to fully assess the potential for LAGEVRIO to affect the babies of males treated with LAGEVRIO have notbeen completed. A reliable method of control (contraception) should be used consistently and correctly during treatment with LAGEVRIO and for at least 3 months after the last dose. The risk to sperm beyond 3 months is not known. Studies to understand the risk to sperm beyond 3 months are ongoing. Talk to your healthcare provider about reliable control methods. Talk to your healthcare provider if you have questions or concerns about how LAGEVRIO may affect sperm. You are being given this fact sheet because your healthcare provider believes it is necessary to provide you with LAGEVRIO for the treatment of adults with a current diagnosis of mild-tomoderate coronavirus disease 2019 (COVID-19) who are at high risk for progression to severe COVID-19, including hospitalization or , and for whom other COVID-19 treatment options approved or authorized by theFDA are not accessible or clinically appropriate. The U.S. Food and Drug Administration (FDA) has issued an Emergency Use Authorization (EUA) to makeLAGEVRIO available during the COVID-19 pandemic (for more details about an EUA please see What is an Emergency Use Authorization? at the end of this document). LAGEVRIO is not an FDA-approved medicine in the [place]. Read this Fact Sheet for information about LAGEVRIO. Talk to your healthcareprovider about your options if you have any questions. It is your choice to take LAGEVRIO. What is COVID-19? COVID-19 is caused by a virus called a coronavirus. You can get COVID-19 through close contact withanother person who has the virus. COVID-19 illnesses have ranged from very txyl-rz-ymzghr, including illness resulting in . While information so far suggests that most COVID-19 illness is mild, serious illness can happen and maycause some of your other medical conditions to become worse. Older people and people of all ages with severe, long lasting (chronic) medical conditions like heart disease, lung disease and diabetes, for example seem to be at higher risk of being hospitalized for COVID-19. What is LAGEVRIO? LAGEVRIO is an investigational medicine used to treat adults with a current diagnosis of mild to moderate COVID-19: who are at high risk for progression to severe COVID-19 including hospitalization or , and for whom other COVID-19 treatment options approved or authorized by the FDA are not accessible or clinically appropriate. The FDA has authorized the emergency use of LAGEVRIO for the treatment of mild- tomoderate COVID-19 in adults under an EUA. For more information on EUA, see the What is an Emergency Use Authorization (EUA)? section at the end of this Fact Sheet. LAGEVRIO is not authorized: for use in people less than 18 years of age. for prevention of COVID-19. for people needing hospitalization for COVID-19. for use for longer than 5 consecutive days. What should I tell my healthcare provider before I take LAGEVRIO? Tell your healthcare provider if you: have any allergies are or plan to breastfeed have any serious illnesses Take any medicines including prescription, sffq-gnd-rmlkksn medicines, vitamins, and herbal products. How do I take LAGEVRIO? Take LAGEVRIO exactly as your healthcare provider tells you to take it. Take 4 capsules of LAGEVRIO every 12 hours (for example, at 8 am and at 8 pm) Take LAGEVRIO for 5 days. It is important that you complete the full 5 days of treatment with LAGEVRIO. Do not stop taking LAGEVRIO before you complete the full 5 days of treatment, even if you feel better. Take LAGEVRIO with or without food. You should stay in isolation for as long as your healthcare provider tells you to. Talk to your healthcare provider if you are not sure about how to properly isolate while you have COVID-19. Swallow LAGEVRIO capsules whole. Do not open, break, or crush the capsules. If you cannot swallow capsules whole, tell your healthcare provider. If your healthcare provider prescribes LAGEVRIO and tells you to take or give a dose through a nasogastric (NG) or orogastric (OG) tube, follow the instructions below: How to take or give a dose of LAGEVRIO through a nasogastric (NG) or orogastric (OG) feeding tube. You must have an NG or OG that is size 12 [place] (FR) or larger. If you miss a dose of LAGEVRIO: If it has been less than 10 hours since the missed dose, take it as soon as you remember. If it has been more than 10 hours since the missed dose, skip the missed dose and take your dose atthe next scheduled time. Do not double the dose of LAGEVRIO to make up for a missed dose. How to take or give a dose of LAGEVRIO through a nasogastric (NG) or orogastric (OG) feeding tube: Wash your hands well with soap and water. Gather the supplies you will need to take or give the prescribed dose of LAGEVRIO. 4 LAGEVRIO capsules 1 liquid measuring cup with mL markings to measure 40 mL of room temperature water 1 clean container with a lid 1 catheter tip syringe. Your healthcare provider should tell you what size catheter tip syringe youwill need to take or give a dose of LAGEVRIO. Place the needed supplies on a clean work surface. Follow your healthcare provider s instructions on how to flush the NG or OG feeding tube. Flush theNG or OG feeding tube with 5 mL of water before taking or giving a dose of LAGEVRIO. Carefully open 4 LAGEVRIO capsules, one at a time, and empty the contents into a clean container. Use the liquid measuring cup to measure 40 mL of room temperature water and add to the container containing the capsule contents. Place the lid on the container. Shake to mix the capsule contents and water well for 3 minutes. Thecapsule contents may not dissolve completely. Remove the lid from the container and draw up all the LAGEVRIO and water mixture into a catheter tip syringe. Give all of the mixture right away through the NG or OG feeding tube. Do not keep the mixture for future use. If any capsule contents are left in the container: Add 10 mL of water to the container, and mix to loosen any capsule contents that are left in the container. Use the catheter tip syringe to draw up all of the mixture in the container. Give the mixture through the NG or OG feeding tube. Repeat this process as needed until you no longer see any capsule contents left in the container orcatheter tip syringe. Use the same catheter tip syringe to flush the NG or OG feeding tube 2 times with 5 mL of water (10mL total). Rinse the container, lid and catheter tip syringe well with clean water after use. Place on a cleanpaper towel until next use. What are the important possible side effects of LAGEVRIO? See, What is the most important information I should know about LAGEVRIO? Allergic Reactions. Allergic reactions can happen in people taking LAGEVRIO, even after only 1 dose. Stop taking LAGEVRIO and call your healthcare provider right away if you get any of the following symptoms of an allergic reaction: hives rapid heartbeat trouble swallowing or breathing swelling of the mouth, lips, or face throat tightness hoarseness skin rash The most common side effects of LAGEVRIO are: diarrhea nausea dizziness These are not all the possible side effects of LAGEVRIO. Not many people have taken LAGEVRIO. Serious and unexpected side effects may happen. This medicine is still being studied, so it is possible that all of the risks are not known at this time. What other treatment choices are there? Veklury (remdesivir) is FDA-approved as an intravenous (IV) infusion for the treatment of mildto-moderate COVID-19 in certain adults and children. Talk with your doctor to see if Veklury is appropriate for you. Like LAGEVRIO, FDA may also allow for the emergency use of other medicines to treat people with COVID-19. Go to https://www.fda.gov/pzguvtaxc-trfhvihwtovi-hqp-response/kpo-nhjrbuilcwcxoop-owe- policy-framework/xgquyuzyc-blg-yrpuybwogjpyy for more information. It is your choice to be treated or not to be treated with LAGEVRIO. Should you decide not to take it, it will not change your standard medical care. What if I am ? is not recommended during treatment with LAGEVRIO and for 4 days after the last dose of LAGEVRIO. If you are or plan to breastfeed, talk to your healthcare provider about your options and specific situation before taking LAGEVRIO. How do I report side effects with LAGEVRIO? Contact your healthcare provider if you have any side effects that bother you or do not go away. Report side effects to FDA MedWatch at www.fda.gov/medwatch or call 9-386-ZTW-8501 (1575.768.3976). How should I store LAGEVRIO? Store LAGEVRIO capsules at room temperature between 68 F to 77 F (20 C to 25 C). Keep LAGEVRIO and all medicines out of the reach of children. How can I learn more about COVID-19? Ask your healthcare provider. Visit www.cdc.gov/COVID19 Contact your local or state public health department. Call [employer] at (toll free in the [place] Visit www.Hot Hotels What Is an Emergency Use Authorization (EUA)? The [place] FDA has made LAGEVRIO available under an emergency access mechanism called an Emergency Use Authorization (EUA) The EUA is supported by a [place] of Health and Human Service ([facility])declaration that circumstances exist to justify emergency use of drugs and biological products during the COVID-19 pandemic. LAGEVRIO for the treatment of adults with a current diagnosis of xgju-ti-hfufvfai COVID-19 who are at high risk for progression to severe COVID- 19, including hospitalization or , and for whom alternative COVID-19 treatment options approved or authorized by FDA are not accessible or clinically appropriate, has not undergone the same type of review as an FDAapproved product. In issuing an EUA under the COVID-19 public health emergency, the FDA has determined, among other things, that based on the total amount of scientific evidence available including data from adequate and well-controlledclinical trials, if available, it is reasonable to believe that the product may be effective for diagnosing, treating, or preventing COVID-19, or a serious or life-threatening disease or condition caused by COVID-19; that the known and potential benefits of the product, when used to diagnose, treat, or prevent such disease or condition, outweigh the known and potential risks of such product; and that there are no adequate, approved, and available alternatives. All of these criteria must be met to allow for the product to be used in the treatment of patients during the COVID-19 pandemic. The EUA for LAGEVRIO is in effect for the duration of the COVID-19 declaration justifying emergency use of LAGEVRIO, unless terminated or revoked (after which LAGEVRIO may no longer be used under the EUA). [employer]. for: [employer] [address] For patent information: www.Oil sands express/research/patent Copyright [employer] [place], [place], [place] and its affiliates. All rights reserved. [id number] Revised: July [address] [facility]11-12-2023 Miscellaneous Notes* Telephone Encounter - Tanya Echols APRN.CNP - 04/23/2023 9:55 AM EST Called in antiviral * Telephone Encounter - Mariana Chandler - 04/23/2023 9:51 AM EST Patient positive for covid requesting medication sent to [facility] since [facility] is out of medication. Mariana Chandler documented in [facility]11-12-2023 Instructions* Patient Instructions* Tayna Echols APRN.CNP - 04/23/2023 9:32 AM EST Fact Sheet for Patients And Caregivers Emergency Use Authorization (EUA) Of LAGEVRIO (molnupiravir) capsules For Coronavirus Disease 2019 (COVID-19) What is the most important information I should know about LAGEVRIO? LAGEVRIO may cause serious side effects, including: LAGEVRIO may cause harm to your unborn baby. It is not known if LAGEVRIO will harm your baby if youtake LAGEVRIO during . LAGEVRIO is not recommended for use in . LAGEVRIO has not been studied in . LAGEVRIO was studied in animals only. When LAGEVRIO was given to animals, LAGEVRIO caused harm to their unborn babies. You and your healthcare provider may decide that you should take LAGEVRIO during if thereare no other COVID-19 treatment options approved or authorized by the FDA that are accessible or clinically appropriate for you. If you and your healthcare provider decide that you should take LAGEVRIO during , you and your healthcare provider should discuss the known and potential benefits and the potential risks of taking LAGEVRIO during . For individuals who are able to become : You should use a reliable method of control (contraception) consistently and correctly duringtreatment with LAGEVRIO and for 4 days after the last dose of LAGEVRIO. Talk to your healthcare provider about reliable control methods. Before starting treatment with LAGEVRIO your healthcare provider may do a test to see if you are before starting treatment with LAGEVRIO. Tell your healthcare provider right away if you become or think you may be duringtreatment with LAGEVRIO. Registry: There is a registry for individuals who take LAGEVRIO during . The purpose of this program is to collect information about the health of you and your baby. If you are or become during treatment with LAGEVRIO, you are encouraged to reportyour use of LAGEVRIO during to this registry at https://covid-pr.i-Nalysis.Resource Interactive or . For individuals who are sexually active with partners who are able to become : It is not known if LAGEVRIO can affect sperm. While the risk is regarded as low, animal studies to fully assess the potential for LAGEVRIO to affect the babies of males treated with LAGEVRIO have notbeen completed. A reliable method of control (contraception) should be used consistently and correctly during treatment with LAGEVRIO and for at least 3 months after the last dose. The risk to sperm beyond 3 months is not known. Studies to understand the risk to sperm beyond 3 months are ongoing. Talk to your healthcare provider about reliable control methods. Talk to your healthcare provider if you have questions or concerns about how LAGEVRIO may affect sperm. You are being given this fact sheet because your healthcare provider believes it is necessary to provide you with LAGEVRIO for the treatment of adults with a current diagnosis of mild-tomoderate coronavirus disease 2019 (COVID-19) who are at high risk for progression to severe COVID-19, including hospitalization or , and for whom other COVID-19 treatment options approved or authorized by theFDA are not accessible or clinically appropriate. The [place]. Food and Drug Administration (FDA) has issued an Emergency Use Authorization (EUA) to makeLAGEVRIO available during the COVID-19 pandemic (for more details about an EUA please see What is an Emergency Use Authorization? at the end of this document). LAGEVRIO is not an FDA-approved medicine in the [place]. Read this Fact Sheet for information about LAGEVRIO. Talk to your healthcareprovider about your options if you have any questions. It is your choice to take LAGEVRIO. What is COVID-19? COVID-19 is caused by a virus called a coronavirus. You can get COVID-19 through close contact withanother person who has the virus. COVID-19 illnesses have ranged from very uldw-nn-iohtpv, including illness resulting in . While information so far suggests that most COVID-19 illness is mild, serious illness can happen and maycause some of your other medical conditions to become worse. Older people and people of all ages with severe, long lasting (chronic) medical conditions like heart disease, lung disease and diabetes, for example seem to be at higher risk of being hospitalized for COVID-19. What is LAGEVRIO? LAGEVRIO is an investigational medicine used to treat adults with a current diagnosis of mild to moderate COVID-19: who are at high risk for progression to severe COVID-19 including hospitalization or , and for whom other COVID-19 treatment options approved or authorized by the FDA are not accessible or clinically appropriate. The FDA has authorized the emergency use of LAGEVRIO for the treatment of mild- tomoderate COVID-19 in adults under an EUA. For more information on EUA, see the What is an Emergency Use Authorization (EUA)? section at the end of this Fact Sheet. LAGEVRIO is not authorized: for use in people less than 18 years of age. for prevention of COVID-19. for people needing hospitalization for COVID-19. for use for longer than 5 consecutive days. What should I tell my healthcare provider before I take LAGEVRIO? Tell your healthcare provider if you: have any allergies are or plan to breastfeed have any serious illnesses Take any medicines including prescription, zoij-oka-snuhhnl medicines, vitamins, and herbal products. How do I take LAGEVRIO? Take LAGEVRIO exactly as your healthcare provider tells you to take it. Take 4 capsules of LAGEVRIO every 12 hours (for example, at 8 am and at 8 pm) Take LAGEVRIO for 5 days. It is important that you complete the full 5 days of treatment with LAGEVRIO. Do not stop taking LAGEVRIO before you complete the full 5 days of treatment, even if you feel better. Take LAGEVRIO with or without food. You should stay in isolation for as long as your healthcare provider tells you to. Talk to your healthcare provider if you are not sure about how to properly isolate while you have COVID-19. Swallow LAGEVRIO capsules whole. Do not open, break, or crush the capsules. If you cannot swallow capsules whole, tell your healthcare provider. If your healthcare provider prescribes LAGEVRIO and tells you to take or give a dose through a nasogastric (NG) or orogastric (OG) tube, follow the instructions below: How to take or give a dose of LAGEVRIO through a nasogastric (NG) or orogastric (OG) feeding tube. You must have an NG or OG that is size 12 [place] (FR) or larger. If you miss a dose of LAGEVRIO: If it has been less than 10 hours since the missed dose, take it as soon as you remember. If it has been more than 10 hours since the missed dose, skip the missed dose and take your dose atthe next scheduled time. Do not double the dose of LAGEVRIO to make up for a missed dose. How to take or give a dose of LAGEVRIO through a nasogastric (NG) or orogastric (OG) feeding tube: Wash your hands well with soap and water. Gather the supplies you will need to take or give the prescribed dose of LAGEVRIO. 4 LAGEVRIO capsules 1 liquid measuring cup with mL markings to measure 40 mL of room temperature water 1 clean container with a lid 1 catheter tip syringe. Your healthcare provider should tell you what size catheter tip syringe youwill need to take or give a dose of LAGEVRIO. Place the needed supplies on a clean work surface. Follow your healthcare provider s instructions on how to flush the NG or OG feeding tube. Flush theNG or OG feeding tube with 5 mL of water before taking or giving a dose of LAGEVRIO. Carefully open 4 LAGEVRIO capsules, one at a time, and empty the contents into a clean container. Use the liquid measuring cup to measure 40 mL of room temperature water and add to the container containing the capsule contents. Place the lid on the container. Shake to mix the capsule contents and water well for 3 minutes. Thecapsule contents may not dissolve completely. Remove the lid from the container and draw up all the LAGEVRIO and water mixture into a catheter tip syringe. Give all of the mixture right away through the NG or OG feeding tube. Do not keep the mixture for future use. If any capsule contents are left in the container: Add 10 mL of water to the container, and mix to loosen any capsule contents that are left in the container. Use the catheter tip syringe to draw up all of the mixture in the container. Give the mixture through the NG or OG feeding tube. Repeat this process as needed until you no longer see any capsule contents left in the container orcatheter tip syringe. Use the same catheter tip syringe to flush the NG or OG feeding tube 2 times with 5 mL of water (10mL total). Rinse the container, lid and catheter tip syringe well with clean water after use. Place on a cleanpaper towel until next use. What are the important possible side effects of LAGEVRIO? See, What is the most important information I should know about LAGEVRIO? Allergic Reactions. Allergic reactions can happen in people taking LAGEVRIO, even after only 1 dose. Stop taking LAGEVRIO and call your healthcare provider right away if you get any of the following symptoms of an allergic reaction: hives rapid heartbeat trouble swallowing or breathing swelling of the mouth, lips, or face throat tightness hoarseness skin rash The most common side effects of LAGEVRIO are: diarrhea nausea dizziness These are not all the possible side effects of LAGEVRIO. Not many people have taken LAGEVRIO. Serious and unexpected side effects may happen. This medicine is still being studied, so it is possible that all of the risks are not known at this time. What other treatment choices are there? Veklury (remdesivir) is FDA-approved as an intravenous (IV) infusion for the treatment of mildto-moderate COVID-19 in certain adults and children. Talk with your doctor to see if Veklury is appropriate for you. Like LAGEVRIO, FDA may also allow for the emergency use of other medicines to treat people with COVID-19. Go to https://www.fda.gov/fahxrmiaq-lplmtjbscyfy-ugx-response/bfn-djrehnjydphawsx-ecb- policy-framework/amiuogbfh-zzy-cpjvgsnieojkg for more information. It is your choice to be treated or not to be treated with LAGEVRIO. Should you decide not to take it, it will not change your standard medical care. What if I am ? is not recommended during treatment with LAGEVRIO and for 4 days after the last dose of LAGEVRIO. If you are or plan to breastfeed, talk to your healthcare provider about your options and specific situation before taking LAGEVRIO. How do I report side effects with LAGEVRIO? Contact your healthcare provider if you have any side effects that bother you or do not go away. Report side effects to FDA MedWatch at www.fda.gov/medwatch or call 1-800-fda-1088 (1843.299.3703). How should I store LAGEVRIO? Store LAGEVRIO capsules at room temperature between 68 F to 77 F (20 C to 25 C). Keep LAGEVRIO and all medicines out of the reach of children. How can I learn more about COVID-19? Ask your healthcare provider. Visit www.cdc.gov/COVID19 Contact your local or state public health department. Call [employer] at (toll free in the [place] Visit www.Hot Hotels What Is an Emergency Use Authorization (EUA)? The [place] FDA has made LAGEVRIO available under an emergency access mechanism called an Emergency Use Authorization (EUA) The EUA is supported by a Pump [employer] Operator of Health and Human Service (HHS)declaration that circumstances exist to justify emergency use of drugs and biological products during the COVID-19 pandemic. LAGEVRIO for the treatment of adults with a current diagnosis of kpxr-cy-sihwlhyd COVID-19 who are at high risk for progression to severe COVID- 19, including hospitalization or , and for whom alternative COVID-19 treatment options approved or authorized by FDA are not accessible or clinically appropriate, has not undergone the same type of review as an FDAapproved product. In issuing an EUA under the COVID-19 public health emergency, the FDA has determined, among other things, that based on the total amount of scientific evidence available including data from adequate and well-controlledclinical trials, if available, it is reasonable to believe that the product may be effective for diagnosing, treating, or preventing COVID-19, or a serious or life-threatening disease or condition caused by COVID-19; that the known and potential benefits of the product, when used to diagnose, treat, or prevent such disease or condition, outweigh the known and potential risks of such product; and that there are no adequate, approved, and available alternatives. All of these criteria must be met to allow for the product to be used in the treatment of patients during the COVID-19 pandemic. The EUA for LAGEVRIO is in effect for the duration of the COVID-19 declaration justifying emergency use of LAGEVRIO, unless terminated or revoked (after which LAGEVRIO may no longer be used under the EUA). [employer] for: [employer] [address] For patent information: www.[employer] express/research/patent Copyright [employer] [facility] and its affiliates. All rights reserved. [id number] Revised: July [address] [facility] Miscellaneous Notes* Telephone Encounter - Tanya Echols APRN.CNP - 04/23/2023 9:29 AM EST Call patient and let him know that antiviral was called in and he is positive for COVID Molnupiravir Eligibility and Patient Discussion [facility] Formulary Restriction Criteria: Adult outpatients 18 years and older with ALL of the following: [x] Patient has symptoms for 5 days or less [x] Not requiring hospitalization at any time for management of COVID-19 [x] Not requiring supplemental oxygen or a change in baseline supplemental oxygen [x] Not utilized for pre-exposure or post-exposure prophylaxis for prevention of COVID-19 [x] Patient is not or lactating [x] Meeting at least one of the criteria for high risk of progression to severe COVID-19: [x] Age over 65 years [] Cancer [] Chronic kidney disease [] Chronic liver disease [] Chronic lung diseases, including cystic fibrosis [] Dementia or other neurological conditions [] Diabetes (type 1 or type 2) [] Disabilities, including Down syndrome and neurodevelopmental disorders [] Heart conditions [] HIV infection [] Immunocompromised state [] Mental health conditions [] Medical related technological dependence (tracheostomy, gastrostomy, or positive pressure ventilation (not related to COVID) [] Overweight and obesity (BMI greater or equal to 25 for adults) [] Physical inactivity [] Sickle cell disease or thalassemia [] Smoking, current or former [] Solid organ or blood stem cell transplant [] Stroke or cerebrovascular disease [] Substance use disorders [] Tuberculosis [] People from racial and ethnic minority groups Criteria above are met: Yes / status reviewed: Females: [] Patient is not currently and there is no possibility the patient could be (select one of the following): [] test does not need to be confirmed in patients who have undergone permanent sterilization, are currently using an intrauterine system or contraceptive implant, or in whom is not possible. [] Patients not meeting conditions above: assess whether the patient is based on the firstday of the last menstrual period in individuals who have regular menstrual cycles, is using reliable method of contraception correctly and consistently or have had a negative test [] A test is recommended if the individual has irregular menstrual cycles, is unsure of the first day of the last menstrual period or is not using effective contraception correctly and consistently [] Patient is not currently . is not recommended during treatment and for four days after final dose of molnupiravir. [] Females have been advised to use a reliable method of contraception correctly and consistently for the duration of treatment and for four days after the last dose of molnupiravir Males: [x] Sexually active male with partner(s) of childbearing potential has been advised to use a reliable method of contraception correctly and consistently for intercourse for the duration of treatment and for three months after the last dose of molnupiravir I have discussed the use of the investigational therapeutic, molnupiravir, for the treatment of mild to moderate COVID-19 and its use under Emergency Use Authorization with the patient. The patient was informed that molnupiravir is not an FDA approved drug and that it is authorized for use under this Emergency Use Authorization. The patient was also informed of the significant knownbenefits and potential risks of molnupiravir, and the extent to which such potential risks and benefits are unknown. The patient was informed that there is mandatory reporting of all medication errors and serious adverse events potentially related to molnupiravir treatment within 7 calendar days from the onset of the event and that events up to 28 days after completion of therapy need to be reported. The discussion included alternatives to receiving molnupiravir, including clinical trials, and potential the risks and benefits of those alternatives. The patient was provided electronically withthe Fact Sheet for Patients, Parents and Caregivers. The patient was also instructed that in addition to the treatment with molnupiravir, he/she should continue to self-isolate and use infection control measures (e.g., wear mask, isolate, social distance, avoid sharing personal items, clean and disinfect high touch surfaces, and frequent handwashing) according to CDC guidelines. The patient stated understanding and gave verbal consent to proceeding with molnupiravir treatment. Tanya Echols APRN.CNP April 23, 2023 9:32 AM [facility] [address] [facility] Instructions* Patient Instructions* Tien Joiner MD - 04/22/2023 11:19 AM EST Fact Sheet for Patients And Caregivers Emergency Use Authorization (EUA) Of LAGEVRIO (molnupiravir) capsules For Coronavirus Disease 2019 (COVID-19) What is the most important information I should know about LAGEVRIO? LAGEVRIO may cause serious side effects, including: LAGEVRIO may cause harm to your unborn baby. It is not known if LAGEVRIO will harm your baby if youtake LAGEVRIO during . LAGEVRIO is not recommended for use in . LAGEVRIO has not been studied in . LAGEVRIO was studied in animals only. When LAGEVRIO was given to animals, LAGEVRIO caused harm to their unborn babies. You and your healthcare provider may decide that you should take LAGEVRIO during if thereare no other COVID-19 treatment options approved or authorized by the FDA that are accessible or clinically appropriate for you. If you and your healthcare provider decide that you should take LAGEVRIO during , you and your healthcare provider should discuss the known and potential benefits and the potential risks of taking LAGEVRIO during . For individuals who are able to become : You should use a reliable method of control (contraception) consistently and correctly duringtreatment with LAGEVRIO and for 4 days after the last dose of LAGEVRIO. Talk to your healthcare provider about reliable control methods. Before starting treatment with LAGEVRIO your healthcare provider may do a test to see if you are before starting treatment with LAGEVRIO. Tell your healthcare provider right away if you become or think you may be duringtreatment with LAGEVRIO. Registry: There is a registry for individuals who take LAGEVRIO during . The purpose of this program is to collect information about the health of you and your baby. If you are or become during treatment with LAGEVRIO, you are encouraged to reportyour use of LAGEVRIO during to this registry at https://covid-pr.i-Nalysis.Resource Interactive or . For individuals who are sexually active with partners who are able to become : It is not known if LAGEVRIO can affect sperm. While the risk is regarded as low, animal studies to fully assess the potential for LAGEVRIO to affect the babies of males treated with LAGEVRIO have notbeen completed. A reliable method of control (contraception) should be used consistently and correctly during treatment with LAGEVRIO and for at least 3 months after the last dose. The risk to sperm beyond 3 months is not known. Studies to understand the risk to sperm beyond 3 months are ongoing. Talk to your healthcare provider about reliable control methods. Talk to your healthcare provider if you have questions or concerns about how LAGEVRIO may affect sperm. You are being given this fact sheet because your healthcare provider believes it is necessary to provide you with LAGEVRIO for the treatment of adults with a current diagnosis of mild-tomoderate coronavirus disease 2019 (COVID-19) who are at high risk for progression to severe COVID-19, including hospitalization or , and for whom other COVID-19 treatment options approved or authorized by theFDA are not accessible or clinically appropriate. The [place]. Food and Drug Administration (FDA) has issued an Emergency Use Authorization (EUA) to makeLAGEVRIO available during the COVID-19 pandemic (for more details about an EUA please see What is an Emergency Use Authorization? at the end of this document). LAGEVRIO is not an FDA-approved medicine in the [place]. Read this Fact Sheet for information about LAGEVRIO. Talk to your healthcareprovider about your options if you have any questions. It is your choice to take LAGEVRIO. What is COVID-19? COVID-19 is caused by a virus called a coronavirus. You can get COVID-19 through close contact withanother person who has the virus. COVID-19 illnesses have ranged from very jaes-do-qsqrga, including illness resulting in . While information so far suggests that most COVID-19 illness is mild, serious illness can happen and maycause some of your other medical conditions to become worse. Older people and people of all ages with severe, long lasting (chronic) medical conditions like heart disease, lung disease and diabetes, for example seem to be at higher risk of being hospitalized for COVID-19. What is LAGEVRIO? LAGEVRIO is an investigational medicine used to treat adults with a current diagnosis of mild to moderate COVID-19: who are at high risk for progression to severe COVID-19 including hospitalization or , and for whom other COVID-19 treatment options approved or authorized by the FDA are not accessible or clinically appropriate. The FDA has authorized the emergency use of LAGEVRIO for the treatment of mild- tomoderate COVID-19 in adults under an EUA. For more information on EUA, see the What is an Emergency Use Authorization (EUA)? section at the end of this Fact Sheet. LAGEVRIO is not authorized: for use in people less than 18 years of age. for prevention of COVID-19. for people needing hospitalization for COVID-19. for use for longer than 5 consecutive days. What should I tell my healthcare provider before I take LAGEVRIO? Tell your healthcare provider if you: have any allergies are or plan to breastfeed have any serious illnesses Take any medicines including prescription, wubo-ngp-uteshxl medicines, vitamins, and herbal products. How do I take LAGEVRIO? Take LAGEVRIO exactly as your healthcare provider tells you to take it. Take 4 capsules of LAGEVRIO every 12 hours (for example, at 8 am and at 8 pm) Take LAGEVRIO for 5 days. It is important that you complete the full 5 days of treatment with LAGEVRIO. Do not stop taking LAGEVRIO before you complete the full 5 days of treatment, even if you feel better. Take LAGEVRIO with or without food. You should stay in isolation for as long as your healthcare provider tells you to. Talk to your healthcare provider if you are not sure about how to properly isolate while you have COVID-19. Swallow LAGEVRIO capsules whole. Do not open, break, or crush the capsules. If you cannot swallow capsules whole, tell your healthcare provider. If your healthcare provider prescribes LAGEVRIO and tells you to take or give a dose through a nasogastric (NG) or orogastric (OG) tube, follow the instructions below: How to take or give a dose of LAGEVRIO through a nasogastric (NG) or orogastric (OG) feeding tube. You must have an NG or OG that is size 12 [place] (FR) or larger. If you miss a dose of LAGEVRIO: If it has been less than 10 hours since the missed dose, take it as soon as you remember. If it has been more than 10 hours since the missed dose, skip the missed dose and take your dose atthe next scheduled time. Do not double the dose of LAGEVRIO to make up for a missed dose. How to take or give a dose of LAGEVRIO through a nasogastric (NG) or orogastric (OG) feeding tube: Wash your hands well with soap and water. Gather the supplies you will need to take or give the prescribed dose of LAGEVRIO. 4 LAGEVRIO capsules 1 liquid measuring cup with mL markings to measure 40 mL of room temperature water 1 clean container with a lid 1 catheter tip syringe. Your healthcare provider should tell you what size catheter tip syringe youwill need to take or give a dose of LAGEVRIO. Place the needed supplies on a clean work surface. Follow your healthcare provider s instructions on how to flush the NG or OG feeding tube. Flush theNG or OG feeding tube with 5 mL of water before taking or giving a dose of LAGEVRIO. Carefully open 4 LAGEVRIO capsules, one at a time, and empty the contents into a clean container. Use the liquid measuring cup to measure 40 mL of room temperature water and add to the container containing the capsule contents. Place the lid on the container. Shake to mix the capsule contents and water well for 3 minutes. Thecapsule contents may not dissolve completely. Remove the lid from the container and draw up all the LAGEVRIO and water mixture into a catheter tip syringe. Give all of the mixture right away through the NG or OG feeding tube. Do not keep the mixture for future use. If any capsule contents are left in the container: Add 10 mL of water to the container, and mix to loosen any capsule contents that are left in the container. Use the catheter tip syringe to draw up all of the mixture in the container. Give the mixture through the NG or OG feeding tube. Repeat this process as needed until you no longer see any capsule contents left in the container orcatheter tip syringe. Use the same catheter tip syringe to flush the NG or OG feeding tube 2 times with 5 mL of water (10mL total). Rinse the container, lid and catheter tip syringe well with clean water after use. Place on a cleanpaper towel until next use. What are the important possible side effects of LAGEVRIO? See, What is the most important information I should know about LAGEVRIO? Allergic Reactions. Allergic reactions can happen in people taking LAGEVRIO, even after only 1 dose. Stop taking LAGEVRIO and call your healthcare provider right away if you get any of the following symptoms of an allergic reaction: hives rapid heartbeat trouble swallowing or breathing swelling of the mouth, lips, or face throat tightness hoarseness skin rash The most common side effects of LAGEVRIO are: diarrhea nausea dizziness These are not all the possible side effects of LAGEVRIO. Not many people have taken LAGEVRIO. Serious and unexpected side effects may happen. This medicine is still being studied, so it is possible that all of the risks are not known at this time. What other treatment choices are there? Veklury (remdesivir) is FDA-approved as an intravenous (IV) infusion for the treatment of mildto-moderate COVID-19 in certain adults and children. Talk with your doctor to see if Veklury is appropriate for you. Like LAGEVRIO, FDA may also allow for the emergency use of other medicines to treat people with COVID-19. Go to https://www.fda.gov/vvdukysbi-soeecjacypop-xur-response/fws-bnnronzzordbvdf-afo- policy-framework/kawqyzlhu-ngh-mdbkcexpspmmx for more information. It is your choice to be treated or not to be treated with LAGEVRIO. Should you decide not to take it, it will not change your standard medical care. What if I am ? is not recommended during treatment with LAGEVRIO and for 4 days after the last dose of LAGEVRIO. If you are or plan to breastfeed, talk to your healthcare provider about your options and specific situation before taking LAGEVRIO. How do I report side effects with LAGEVRIO? Contact your healthcare provider if you have any side effects that bother you or do not go away. Report side effects to FDA MedWatch at www.fda.gov/medwatch or call 2-830-OZB-3824 (1798.751.1867). How should I store LAGEVRIO? Store LAGEVRIO capsules at room temperature between 68 F to 77 F (20 C to 25 C). Keep LAGEVRIO and all medicines out of the reach of children. How can I learn more about COVID-19? Ask your healthcare provider. Visit www.cdc.gov/COVID19 Contact your local or state public health department. Call [employer] at (toll free in the [place] Visit www.[employer] What Is an Emergency Use Authorization (EUA)? The [place] FDA has made LAGEVRIO available under an emergency access mechanism called an Emergency Use Authorization (EUA) The EUA is supported by a [place] of Health and Human Service (HHS)declaration that circumstances exist to justify emergency use of drugs and biological products during the COVID-19 pandemic. LAGEVRIO for the treatment of adults with a current diagnosis of ejvn-xt-mlthlaby COVID-19 who are at high risk for progression to severe COVID- 19, including hospitalization or , and for whom alternative COVID-19 treatment options approved or authorized by FDA are not accessible or clinically appropriate, has not undergone the same type of review as an FDAapproved product. In issuing an EUA under the COVID-19 public health emergency, the FDA has determined, among other things, that based on the total amount of scientific evidence available including data from adequate and well-controlledclinical trials, if available, it is reasonable to believe that the product may be effective for diagnosing, treating, or preventing COVID-19, or a serious or life-threatening disease or condition caused by COVID-19; that the known and potential benefits of the product, when used to diagnose, treat, or prevent such disease or condition, outweigh the known and potential risks of such product; and that there are no adequate, approved, and available alternatives. All of these criteria must be met to allow for the product to be used in the treatment of patients during the COVID-19 pandemic. The EUA for LAGEVRIO is in effect for the duration of the COVID-19 declaration justifying emergency use of LAGEVRIO, unless terminated or revoked (after which LAGEVRIO may no longer be used under the EUA). [employer] for: [employer] [address] For patent information: www.[employer]/research/patent Copyright [employer] [facility] and its affiliates. All rights reserved. [id number] Revised: July [address] [facility] History of Present illness Narrative* Tien Joiner MD - 04/22/2023 11:10 AM EST Patient presents with: Head Congestion: chills, bodyaches x 1 day, + covid HPI: Feeling sick for 1 day. His tested positive for COVID and is on antiviral treatment. He has had COVID in the past and that is vaccinated. Positive symptoms: Nasal Congestion, Chills, Body Aches, Cough, Headache, fever Negative symptoms: Shortness of breath, Chest pain, Nausea, Vomiting, Diarrhea, Shortness of breath, MEDICATIONS: Current Outpatient Medications Medication Sig ELIQUIS 5 mg tab(s) amLODIPine (NORVASC) 2.5 mg tablet Take 1 tablet by mouth once daily. multivitamin tablet Take 1 tablet by mouth once daily. No current facility-administered medications for this visit. ALLERGIES: ALLERGIES Allergen Reactions Levaquin [Levofloxa* Rash Penicillins Rash Ultravist [Iopromid* Other: See Comments Pt sneezed twice after contrast injection. Radiologist notified and evaluated patient. No meds weregiven and was advised to be pre medicated for future tests. VITALS: BP 162/72 Pulse 92 Temp (!) 38 C (100.4 F) Resp 18 Wt 99.8 kg (220 lb) SpO2 94% BMI 29.03 kg/m PHYSICAL EXAM: GEN: mildly ill appearing, alert, unmasked HEENT: PERRL, EOMI, conjunctiva clear LUNGS: occasional cough, no increased WOB Molnupiravir Eligibility and Patient Discussion [facility] Formulary Restriction Criteria: Adult outpatients 18 years and older with ALL of the following: [x] Patient has symptoms for 5 days or less [x] Not requiring hospitalization at any time for management of COVID-19 [x] Not requiring supplemental oxygen or a change in baseline supplemental oxygen [x] Not utilized for pre-exposure or post-exposure prophylaxis for prevention of COVID-19 [x] Patient is not or lactating [x] Meeting at least one of the criteria for high risk of progression to severe COVID-19: [x] Age over 65 years [] Cancer [] Chronic kidney disease [] Chronic liver disease [] Chronic lung diseases, including cystic fibrosis [] Dementia or other neurological conditions [] Diabetes (type 1 or type 2) [] Disabilities, including Down syndrome and neurodevelopmental disorders [x] Heart conditions [] HIV infection [] Immunocompromised state [] Mental health conditions [] Medical related technological dependence (tracheostomy, gastrostomy, or positive pressure ventilation (not related to COVID) [] Overweight and obesity (BMI greater or equal to 25 for adults) [] Physical inactivity [] Sickle cell disease or thalassemia [] Smoking, current or former [] Solid organ or blood stem cell transplant [] Stroke or cerebrovascular disease [] Substance use disorders [] Tuberculosis [] People from racial and ethnic minority groups Criteria above are met: Yes Date of Symptom Onset: 04/22/23 Patient received COVID vaccine: Yes / status reviewed: Females: [] Patient is not currently and there is no possibility the patient could be (select one of the following): [] test does not need to be confirmed in patients who have undergone permanent sterilization, are currently using an intrauterine system or contraceptive implant, or in whom is not possible. [] Patients not meeting conditions above: assess whether the patient is based on the firstday of the last menstrual period in individuals who have regular menstrual cycles, is using reliable method of contraception correctly and consistently or have had a negative test [] A test is recommended if the individual has irregular menstrual cycles, is unsure of the first day of the last menstrual period or is not using effective contraception correctly and consistently [] Patient is not currently . is not recommended during treatment and for four days after final dose of molnupiravir. [] Females have been advised to use a reliable method of contraception correctly and consistently for the duration of treatment and for four days after the last dose of molnupiravir Males: [x] Sexually active male with partner(s) of childbearing potential has been advised to use a reliable method of contraception correctly and consistently for intercourse for the duration of treatment and for three months after the last dose of molnupiravir I have discussed the use of the investigational therapeutic, molnupiravir, for the treatment of mild to moderate COVID-19 and its use under Emergency Use Authorization with the patient. The patient was informed that molnupiravir is not an FDA approved drug and that it is authorized for use under this Emergency Use Authorization. The patient was also informed of the significant knownbenefits and potential risks of molnupiravir, and the extent to which such potential risks and benefits are unknown. The patient was informed that there is mandatory reporting of all medication errors and serious adverse events potentially related to molnupiravir treatment within 7 calendar days from the onset of the event and that events up to 28 days after completion of therapy need to be reported. The discussion included alternatives to receiving molnupiravir, including clinical trials, and potential the risks and benefits of those alternatives. The patient was provided electronically withthe Fact Sheet for Patients, Parents and Caregivers. The patient was also instructed that in addition to the treatment with molnupiravir, he/she should continue to self-isolate and use infection control measures (e.g., wear mask, isolate, social distance, avoid sharing personal items, clean and disinfect high touch surfaces, and frequent handwashing) according to CDC guidelines. The patient stated understanding and gave verbal consent to proceeding with molnupiravir treatment. Tien Joiner MD April 22, 2023 11:20 AM ASSESSMENT/PLAN: 1. URI, acute - ICD9: 465.9, ICD10: J06.9 (primary diagnosis) 2. Exposure to confirmed case of COVID-19 - ICD9: V01.79, ICD10: Z20.822 Probable COVID. - COVID NAAT, UPPER RESPIRATORY, ROUTINE - Paxlovid interacts with Nicole. He would like mulnupiravir sent if positive for COVID. Reviewed EUA information. Send Rx tomorrow if positive. Tien Joiner MD documented in this [facility]06-[facility] History of Present illness Narrative* Jagdish Bender APRN.MEDICAL LANGUAGE SPECIALIST - 11/10/2022 9:23 AM EDT Images from the original note were not included. Subjective HPI Nontoxic-appearing male presents urgent care chief complaint left shoulder/neck pain. Duration of symptoms 3 days. Associated symptoms listed above. States pain is worse with movements. Improves withrest. No known injury. Did start Eliquis 7 days ago concerned about possible medication reaction. Denies any other symptoms. No OTC medication use. No numbness no tingling. Denies any missed doses ofmedication. No chest pain shortness of breath hemoptysis or pleuritic pain. Denies any fever body aches chills productive cough chest pain shortness of breath pleuritic pain hemoptysis nausea vomiting abdominal pain change in bowel or bladder habits. Past medical history prescription medication useand allergies reviewed. 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 Other psoriasis 01/29/2013 RECURRENT CELLULITIS 01/22/2007 Subdural hematoma, post-traumatic (HCC) 01/29/2011 01-29-11, resolved post fall off ladder Thrombocytopenia (HCC) 06/07/2012 Varicose veins of lower extremities with other complications 03/11/2011 VENOUS INSUFFICIENCY NOS 12/05/2005 PAST SURGICAL HISTORY Procedure Laterality Date CARDIAC CATH 11/14/2018 COLONOSCOPY FLX DX W/COLLJ SPEC WHEN PFRMD 10/31/2017 Colonoscopy COLONOSCOPY W/BIOPSY SINGLE/MULTIPLE 04/14/06 Sigmoid diverticulitis PAST SURGICAL HISTORY OF 1971 R leg varicose vein removal THYROID FINE NEEDLE ASPIRATION 02/06/06 U/S guided right mid and superior pole THYROID RIGHT FINE NEEDLE ASPIRATION 11/22/08 U/S FNA right thyroid x 2 nodules TONSILLECTOMY & ADENOIDECTOMY <AGE 12 1953 TYMPANOSTOMY LOCAL/TOPICAL ANESTHESIA 01/2014 Left ear. TYMPANOSTOMY LOCAL/TOPICAL ANESTHESIA Left 03/06/2018 replacement ALLERGIES Levaquin [Levofloxacin], Penicillins, and Ultravist [Iopromide] MEDICATIONS ELIQUIS 5 mg tab(s) amLODIPine (NORVASC) 2.5 mg tablet Take 1 tablet by mouth once daily. multivitamin tablet Take 1 tablet by mouth once daily. warfarin (COUMADIN) 4 mg tablet Take 1 tablet by mouth daily as directed. Takes 4mg on T&Sat, 2mg other days of the week. (Patient not taking: Reported on 11/10/2022) FAMILY HISTORY Problem Relation Age of Onset Thyroid Mother Heart Father enlarged heart Arthritis Brother knee replaced Social History Tobacco Use Smoking status: Never Smokeless tobacco: Never Substance Use Topics Alcohol use: No Drug use: No BP 130/68 Temp 36.7 C (98 F) (Tympanic) Wt 99 kg (218 lb 3.2 oz) BMI 28.79 kg/m Review of Systems Constitutional: Negative for chills, fever and malaise/fatigue. HENT: Negative for congestion, ear discharge, ear pain, sinus pain and sore throat. Eyes: Negative for blurred vision, pain, discharge and redness. Respiratory: Negative for cough, hemoptysis, sputum production, shortness of breath, wheezing and stridor. Cardiovascular: Negative for chest pain. Gastrointestinal: Negative for abdominal pain, diarrhea, nausea and vomiting. Musculoskeletal: Positive for joint pain and neck pain. Negative for back pain, falls and myalgias. Skin: Negative for itching and rash. Neurological: Negative for dizziness and headaches. Objective Physical Exam Constitutional: General: He is not in acute distress. Appearance: He is not diaphoretic. HENT: Head: Normocephalic. Eyes: Conjunctiva/sclera: Conjunctivae normal. Pupils: Pupils are equal, round, and reactive to light. Cardiovascular: Rate and Rhythm: Normal rate and regular rhythm. Heart sounds: Normal heart sounds. Pulmonary: Effort: Pulmonary effort is normal. No tachypnea, accessory muscle usage or respiratory distress. Breath sounds: Normal breath sounds. No stridor. Musculoskeletal: Arms: Cervical back: Normal range of motion and neck supple. No rigidity or tenderness. Comments: Pain reproducible with movements palpation. Moderate amount of discomfort noted with palpation to trapezius muscle. No erythema no edema. No breaks in the skin. No warmth. Neurovascular intact. No weaknesses noted. Full range of motion. Lymphadenopathy: Cervical: No cervical adenopathy. Skin: General: Skin is warm and dry. Neurological: Mental Status: He is alert and oriented to person, place, and time. ASSESSMENT/PLAN: 1. Acute pain of left shoulder - ICD9: 719.41, ICD10: M25.512 Patient diagnosed with acute left shoulder pain. Pain is reproducible with movements. Low suspicionfor skeletal injury. Treat as muscle strain. Patient willcontact vascular medicine to discuss concerns about possible medication reaction. Patient was educated on supportive therapies. Patient will follow up with primary care provider as needed. Patient was instructed to immediately proceed to emergency room for any new, worsening, or symptoms lasting longer than anticipated. The patient's clinical presentation is otherwise unremarkable at this time. Based on exam and clinical finding, the patient is stable for discharge. Plan of care was discussed with patient. Patient verbalizes understanding and agrees to plan of care. This note was generated using [employer] software. It may contain errors in wording, punctuation, or spelling. Jagdish Bender APRN.MEDICAL LANGUAGE SPECIALIST documented in this [facility]11-29-2022 History of Present illness Narrative* Neha Cervantes PA-C - 05/10/2022 11:48 AM EST This note was created using [employer]. Subjective Rj Leung is a 81 year old male. HPI Presents with headache, nasal congestion and cough over the past day. Denies chest pain or shortness of breath. Denies sick contacts. No fever. No vomiting or diarrhea. He did try an epzt-jlo-qlivytnqwnn medication which seemed to help some. No ear pain. He is vaccinated for COVID, has had it oncepreviously. Patient also complaining of left fifth toe pain. He excellently kicked the nightstand in the melanite and his toe looked sideways when he looked at it. He did have some bleeding from a wound there to. That seemed to have stopped. He is on Coumadin due to A. fib. No other injury. No fall. He has been able to walk on it. Review of Systems Constitutional: Negative for fatigue and fever. HENT: Positive for congestion and rhinorrhea. Negative for ear pain and sore throat. Respiratory: Positive for cough. Negative for chest tightness, shortness of breath and wheezing. Cardiovascular: Negative. Gastrointestinal: Negative. Musculoskeletal: Left fifth toe pain Neurological: Positive for headaches. Negative for dizziness and weakness. All other systems reviewed and are negative. 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 Other psoriasis 01/29/2013 RECURRENT CELLULITIS 01/22/2007 Subdural hematoma, post-traumatic 01/29/2011 8--11, resolved post fall off ladder Thrombocytopenia (HCC) 06/07/2012 Varicose veins of lower extremities with other complications 03/11/2011 VENOUS INSUFFICIENCY NOS 12/05/2005 Current Outpatient Medications Medication Sig Dispense Refill amLODIPine (NORVASC) 2.5 mg tablet Take 1 tablet by mouth once daily. 90 tablet 3 warfarin (COUMADIN) 4 mg tablet Take 1 tablet by mouth daily as directed. Takes 4mg on T&Sat, 2mg other days of the week. 90 tablet 3 multivitamin tablet Take 1 tablet by mouth once daily. 0 cephALEXin (KEFLEX) 500 mg capsule Take 1 capsule by mouth twice daily for 7 days. 14 capsule 0 No current facility-administered medications for this visit. PAST SURGICAL HISTORY Procedure Laterality Date CARDIAC CATH 11/14/2018 COLONOSCOPY FLX DX W/COLLJ SPEC WHEN PFRMD 10/31/2017 Colonoscopy COLONOSCOPY W/BIOPSY SINGLE/MULTIPLE 04/14/06 Sigmoid diverticulitis PAST SURGICAL HISTORY OF 1971 R leg varicose vein removal THYROID FINE NEEDLE ASPIRATION 02/06/06 U/S guided right mid and superior pole THYROID RIGHT FINE NEEDLE ASPIRATION 11/22/08 U/S FNA right thyroid x 2 nodules TONSILLECTOMY & ADENOIDECTOMY <AGE [age] TYMPANOSTOMY LOCAL/TOPICAL ANESTHESIA 01/2014 Left ear. TYMPANOSTOMY LOCAL/TOPICAL ANESTHESIA Left 03/06/2018 replacement FAMILY HISTORY Problem Relation Age of Onset Thyroid Mother Heart Father enlarged heart Arthritis Brother knee replaced Social History Tobacco Use Smoking status: Never Smokeless tobacco: Never Substance Use Topics Alcohol use: No Drug use: No Objective BP 130/68 Pulse 82 Temp 36.6 C (97.8 F) Resp 16 Wt 101.3 kg (223 lb 6.4 oz) SpO2 97% BMI 29.47 kg/m Physical Exam Vitals reviewed. Constitutional: Appearance: Normal appearance. HENT: Head: Normocephalic and atraumatic. Right Ear: Tympanic membrane, ear canal and external ear normal. Left Ear: Tympanic membrane, ear canal and external ear normal. Nose: Congestion present. Mouth/Throat: Mouth: Mucous membranes are moist. Pharynx: Oropharynx is clear. Cardiovascular: Rate and Rhythm: Normal rate and regular rhythm. Heart sounds: Normal heart sounds. Pulmonary: Effort: Pulmonary effort is normal. Breath sounds: Normal breath sounds. Musculoskeletal: Cervical back: Neck supple. Comments: Patient has soft tissue swelling to the left fifth toe diffusely. There is a laceration right at the crease of the toe where it meets the foot. No active bleeding. No foreign body. 1 cm. Tenderness with range of motion of the toe. No metatarsal tenderness on palpation. Pedal pulses 1+. Hedoes have some chronic skin changes likely associated with venous insufficiency. Skin: General: Skin is warm and dry. Neurological: Mental Status: He is alert. Assessment and Plan ASSESSMENT/PLAN: 1. Viral URI with cough - ICD9: 465.9, ICD10: J06.9 (primary diagnosis) - Discussed viral etiology and rationale for treatment. - Symptomatic treatment with prn analgesia - Supportive care with fluids and rest - COVID WITH FLUA+B, ROUTINE 2. Closed displaced fracture of proximal phalanx of lesser toe of left foot, initial encounter - ICD9: 826.0, ICD10: S92.512A I did sofiya tape the toe and cleaned out the wound. This was not amenable to suturing. His tetanus was updated today. I will put him on Keflex twice daily for 7 days prophylactically for infection. He has an appointment with podiatry next week. Discussed red flags to be seen again. Patient agreeable. - XR TOE AP/LAT/OBL LEFT - CONSULT TO PODIATRY 3. Laceration of lesser toe of left foot without foreign body present or damage to nail, initial encounter - ICD9: 893.0, ICD10: S91.115A Neha Cervantes PA-C documented in [facility]11-16-[facility]22 Miscellaneous Notes* Telephone Encounter - Roberta Schneider RN - 04/27/2022 5:43 PM EST Spoke with patient's . Given message from provider's office. Patient's verbalizes understanding. Roberta Schneider RN * Telephone Encounter - Oskar Leger MD - 04/27/2022 5:24 PM EST Non fasting glucose is okay. CKD has slightly worsened but he follows with nephrology. CKD startingto also affect anemia. Continue to monitor. * Telephone Encounter - Oly Barrow RN - 04/27/2022 9:37 AM EST (Tory) calls to update provider that she reviewed lab results in and patient wasn't fasting for lab-work. reports that patient ate at [employer] around 1230 and had a fish sandwich with all the toppings, medium lopez and 2 medium size sprites to drink. Tory reports if any further lab work needs ordered to please fax orders to [facility] in [place] at [phone]. Please review and advise, Oly Barrow RN [facility] History of Past illness Narrative* Problem Noted Date Diagnosed Date Resolved Date Stage 3b chronic kidney disease 04/27/2022 05/11/2023 Overweight (BMI 25.0-29.9) 03/07/2018 1 06/20/2021 Encounter for colorectal cancer screening 10/20/2017 03/07/2018 Overview: Added automatically from request for surgery [id number] Diverticulosis of large inte whitney without hemorrhage 10/20/2017 03/07/2018 Overview: Added automatically from request for surgery [id number] Pruritus 04/30/2013 02/27/2017 Other psoriasis 01/29/2013 02/27/2017 Postinflammatory hyperpigmentation 01/29/2013 02/27/2017 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 Muscular wasting and disuse atrophy, not elsewhere classified 02/21/2011 10/15/2012 Subdural hemorrhage 02/21/2011 03/21/20 12 Microscopic hematuria 03/01/20102013 Unspecified disorder of prostate 11/12/2007 03/21/2012 Hypertrophy of prostate with urinary obstruction and other lower urinary tract symptoms (LUTS) 10/18/2007 03/21/2012 Hematuria 04/18/2007 10/15/2012 RECURRENT CELLULITIS 01/22/2007 012 DIVERTICULITIS SIGMOID-NO HEMORRHAGE 04/14/2006 03/13/2014 Nontoxic uninodular goiter 12/05/2005 1 Unspecified venous (peripheral) insufficiency 12/06/19 06 02/27/2017 Edema 12/05/2005 03/21/2012 documented as of this encounter (statuses as of 05/11/2023) [facility]11-[facility] History of Present illness Narrative* Oskar Leger MD - 04/20/2022 1:39 PM EST This note was created using NoteWriter. Subjective Rj Leung is a 81 year old male. He was doing well. Labs needed updating. Review of Systems Constitutional: Negative. Respiratory: Negative. Cardiovascular: Negative. Gastrointestinal: Negative. Genitourinary: Negative. ACTIVE PROBLEM LIST Bph Without Obstruction/Lower Urinary Tract Symptoms Paroxysmal Atrial Fibrillation (Hcc) Varicose Veins of Leg With Edema, Bilateral YAJAIRA (obstructive sleep apnea) on CPAP Thrombocytopenia (Hcc) Lichen Planus Overweight (Bmi 25.0-29.9) Stage 3a Chronic Kidney Disease (Hcc) Essential Hypertension Obesity, Class I, Bmi 30-34.9 Current Outpatient Medications Medication Sig warfarin (COUMADIN) 4 mg tablet Take 1 tablet by mouth daily as directed. Takes 4mg on T&Sat, 2mg other days of the week. multivitamin tablet Take 1 tablet by mouth once daily. amLODIPine (NORVASC) 2.5 mg tablet Take 1 tablet by mouth once daily. No current facility-administered medications for this visit. Objective BP 124/60 (BP Site: Left Arm, BP Position: Sitting, BP Cuff Size: Large Adult) Pulse 60 Temp (!) 35.8 C (96.4 F) (Temporal) Resp 12 Ht 185.4 cm (6' 1) Wt 104.3 kg (230 lb) BMI 30.34 kg/m Physical Exam Cardiovascular: Rate and Rhythm: Normal rate and regular rhythm. Heart sounds: No murmur heard. No gallop. Pulmonary: Breath sounds: Normal breath sounds. Musculoskeletal: Right lower leg: No edema. Left lower leg: No edema. Neurological: General: No focal deficit present. Mental Status: He is alert. Gait: Gait normal. Psychiatric: Mood and Affect: Mood normal. Assessment and Plan 1. Medicare annual wellness visit, subsequent - ICD9: V70.0, ICD10: Z00.00 (primary diagnosis) See wellness note. 2. Essential hypertension - ICD9: 401.9, ICD10: I10 - good control - AMLODIPINE 2.5 MG TABLET 3. Need for influenza vaccination - ICD9: V04.81, ICD10: Z23 - INFLUENZA SEASONAL QUADRIVALENT HIGH DOSE AGE 65+ 4. Obesity, Class I, BMI 30-34.9 - ICD9: 278.00, ICD10: E66.9 Weight increasing - Behavioral intervention 5. Paroxysmal atrial fibrillation (HCC) - ICD9: 427.31, ICD10: I48.0 - CBC 6. Stage 3a chronic kidney disease (HCC) - ICD9: 585.3, ICD10: N18.31 - eGFR: Stable - BASIC METABOLIC PNL 7. Thrombocytopenia (HCC) - ICD9: 287.5, ICD10: D69.6 Recheck. 8. YAJAIRA (obstructive sleep apnea) on CPAP - ICD9: 327.23, ICD10: G47.33 Using and benefiting from CPAP. Oskar Leger MD * Oskar Leger MD - 04/20/2022 1:25 PM EST Rj Leung is a 81 year old male here for a Medicare Subsequent Annual Wellness Visit Welcome to Medicare and Medicare Wellness Visits are an opportunity to create and update a personalized plan to help prevent disease and disability, based on your current health and risk factors.The yearly Wellness visit isn t a physical exam. Additional concerns may generate additional charges or co-pays. Health Risk Assessment In general, health is: Very good Concerns with tiredness, difficulties with sexual function, balance, teeth/dentures: Not at all [place] anxious, stressed, angry, irritable, lonely, isolated, or had thoughts of hurting themself: Not at all Has little interest or pleasure in doing things: Not at all Bothered by feeling down, depressed, or hopeless: Not at all Needs help with grocery shopping, cooking, housework, bathing, grooming, dressing, eating, sitting or standing, walking, using the toilet, handling finances, taking medications, using the telephone, or driving: No Following safety precautions in the home environment and vehicle: removed throw rugs from floors, installed grab bars in the bathroom, handrails in stairwells, having adequate lighting, wearing seatbelt at all times?: Yes Smokes cigarettes, vapes, or chew tobacco: No Eats healthy foods including fruits, vegetables, whole grains, and fiber-rich foods: Nearly every day Number of days per week engages in exercise: 3 days Average alcohol consumption: Never Current Providers Patient Care Team: Oskar Leger MD as PCP - General (Internal Medicine) Specialists: I have reviewed specialist-related care of the patient in the medical record. and Outside specialists seen: Dr. Toro, [facility]. Dr. Campbell, nephrology. Dr. Prado, dermatology. Dr. Barron, ophthalmology. Dr. Shafer, sleep medicine. Medical/Family history review Reviewed and updated problem list, medical history, surgical history, family history, social history, medication list, and allergies. Opioid use review Patient is not currently using opioids. Depression screening Depression Screening PHQ-2 Score 03/08/2019 0 Depression screening tool completed and reviewed. Based on score and interview, patient is not at risk for depression. Screening tool discussed with patient, and I recommended no further interventionat this time. Cognitive screening Mini Cog Score: 4 Cognitive screening reviewed and no further action needed (score 3-5) Functional Observation Was the patient's timed Up & Go test unsteady or longer than 30 seconds? No Advance Care Planning End of Life planning discussed, including patient's advanced directive wishes: Yes. Copy needed. Measurements BP 124/60 Pulse 60 Temp (Src) 96.4 (Temporal) Resp 12 Ht 6' 1 (1.85m) Wt 230 lb (104.3kg) BMI 30.35 kg/(m^2). Visual acuity: follows with optometry/ophthalmology Hearing Evaluation: some loss. Assessment/Plan - Counseled on healthy diet and regular exercise - Discussed need for and benefit of weight loss. BMI 30.34 kg/(m^2) - Fall avoidance - Vaccines recommended COVID-19, Influenza, Shingrix at pharmacy, and Tdap at pharmacy - Depression screening documented in [facility] History of Present illness Narrative* Una Kaur MA - 02/22/2022 2:22 PM EDT POPULATION HEALTH NAVIGATION OUTREACH Action/FYI Patient agreeable to schedule wellness exam Pt identified by name and : YES, via phone Outreach Outcome/Action Spoke to patient or caregiver: Patient scheduled Did you use a PCP flex slot to schedule this appointment? Yes Reason for Outreach Care Gap or Scheduling/Wellness visits Payer: Payor: [employer] MEDICARE / Plan: [employer] MEDICARE PPO / Product Type: PPO / Care Gap Reviewed:: Annual Wellness visit Reminder: Reminder note to check Health Maintenance for items below Health Maintenance items due: COVID-19 VACCINE(3 - Booster for Moderna series) due on 02/07/2021 ADVANCE DIRECTIVE DISCUSSION Never done INFLUENZA(1) due on 02/10/2022 DIABETES SCREEN due on 03/06/2022 Message Sent to Practice: No Navigation Signature: Una Kaur Population Health Navigator February 22, 2022 2:22 PM documented in [address] [facility]-05-[facility] NoteHNO ID: [id number] Author: VINEET Lazo Service: Radiology Author Type: Clinical Seo Strategist Type: Progress Notes Filed: 04/16/2021 3:50 PM Note Text: Radiology Service Progress Note PATIENT NAME: Rj Leung DATE OF SERVICE: April 16, 2021 TIME: 3:50 PM PATIENT IDENTITY VERIFICATION COMPLETED USING TWO (2) IDENTIFIERS: Name and Date of confirmed by patient verbally. FALL SCREENING: Has the patient had 2 falls in the last year or 1 fall with injury or currently using an Ambulatory Assistive Device (Walker, Cane, Wheelchair, Crutches, etc.)? No PATIENT GENDER DATA: Male PATIENT RELEVANT IMPLANT DATA REVIEWED: Not Applicable RADIOLOGY DEPARTMENT: Ultrasound PERIPHERAL IV DATA: Not applicable SIGNED BY: VINEET Lazo April 16, 2021 3:50 [id number] History of Past illness Narrative* Problem Noted Date Resolved Date Overweight (BMI 25.0-29.9) 03/07/201804/20 Encounter for colorectal cancer screening 201703/07/2018 Overview: Added automatically from request for surgery [id number] Diverticulosis of large intestine without hemorr ronald 10/20/2017 03/07/2018 Overview: Added automatically from request for surgery [id number] Pruritus 04/30/2013 02/27/2017 Other psoriasis 01/29/2013 02/27/2017 Postinflammatory hyperpigmentation 01/29/2013 02/27/2017 Hypertrophic lichen planus 12/12/201202/27 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 02/27/2017 Xerosis cutis 12/12/2012 03/13/2014 Muscular wasting and disuse atrophy, not elsewhere classified 02/21/2011 10/15/2012 Subdural hemorrhage 02/21/2011 03/21/2012 Microscopic hematuria 03/01/2010 03/13/2014 Unspecified disorder of prostate 11/12/2007 03/21/2012 Hypertrophy of prostate with urinary obstruction and other lower urinary tract symptoms (LUTS) 10/18/2007 03/21/2012 Hematuria 04/18/2007 10/15/2012 RECURRENT CELLULITIS 01/22/2007 03/21/2012 DIVERTICULITIS SIGMOID-NO HEMORRHAGE 04/14/2006 03/13/2014 Nontoxic uninodular goiter 12/05/200503/13 Unspecified venous (peripheral) insufficiency 02/27/2017 Edema 12/05/2005 03/21/2012 documented as of this encounter (statuses as of 04/21/2022) [facility] History of Past illness Narrative* Problem Noted Date Resolved Date Overweight (BMI 25.0-29.9) 03/07/201804/20 Encounter for colorectal cancer screening 201703/07/2018 Overview: Added automatically from request for surgery [id number] Diverticulosis of large intestine without hemorr ronald 10/20/2017 03/07/2018 Overview: Added automatically from request for surgery [id number] Pruritus 04/30/2013 02/27/2017 Other psoriasis 01/29/2013 02/27/2017 Postinflammatory hyperpigmentation 01/29/2013 02/27/2017 Hypertrophic lichen planus 12/12/201202/27 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 Muscular wasting and disuse atrophy, not elsewhere classified 02/21/2011 10/15/2012 Subdural hemorrhage 02/21/2011 03/21/2012 Microscopic hematuria 03/01/2010 03/13/2014 Unspecified disorder of prostate 11/12/2007 03/21/2012 Hypertrophy of prostate with urinary obstruction and other lower urinary tract symptoms (LUTS) 10/18/2007 03/21/2012 Hematuria 04/18/2007 10/15/2012 RECURRENT CELLULITIS 01/22/2007 03/21/2012 DIVERTICULITIS SIGMOID-NO HEMORRHAGE 04/14/2006 03/13/2014 Nontoxic uninodular goiter 12/05/200503/13 Unspecified venous (peripheral) insufficiency 02/27/2017 Edema 12/05/2005 03/21/2012 documented as of this encounter (statuses as of 04/28/2022) [facility] of Past illness Narrative* Problem Noted Date Resolved Date Overweight (BMI 25.0-29.9) 03/07/201804/20 Encounter for colorectal cancer screening 201703/07/2018 Overview: Added automatically from request for surgery [id number] Diverticulosis of large intestine without hemorr ronald 10/20/2017 03/07/2018 Overview: Added automatically from request for surgery [id number] Pruritus 04/30/2013 02/27/2017 Other psoriasis 01/29/2013 02/27/2017 Postinflammatory hyperpigmentation 01/29/2013 02/27/2017 Hypertrophic lichen planus 12/12/201202/27 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 Muscular wasting and disuse atrophy, not elsewhere classified 02/21/2011 10/15/2012 Subdural hemorrhage 02/21/2011 03/21/2012 Microscopic hematuria 03/01/2010 03/13/2014 Unspecified disorder of prostate 11/12/2007 03/21/2012 Hypertrophy of prostate with urinary obstruction and other lower urinary tract symptoms (LUTS) 10/18/2007 03/21/2012 Hematuria 04/18/2007 10/15/2012 RECURRENT CELLULITIS 01/22/2007 03/21/2012 DIVERTICULITIS SIGMOID-NO HEMORRHAGE 04/14/2006 03/13/2014 Nontoxic uninodular goiter 12/05/200503/13 Unspecified venous (peripheral) insufficiency 02/27/2017 Edema 12/05/2005 03/21/2012 documented as of this encounter (statuses as of 05/10/2022) [facility] of Past illness Narrative* Problem Noted Date Resolved Date Overweight (BMI 25.0-29.9) 03/07/201804/20 Encounter for colorectal cancer screening 201703/07/2018 Overview: Added automatically from request for surgery [id number] Diverticulosis of large intestine without hemorr ronald 10/20/2017 03/07/2018 Overview: Added automatically from request for surgery [id number] Pruritus 04/30/2013 02/27/2017 Other psoriasis 01/29/2013 02/27/2017 Postinflammatory hyperpigmentation 01/29/2013 02/27/2017 Hypertrophic lichen planus 12/12/201202/27 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 Muscular wasting and disuse atrophy, not elsewhere classified 02/21/2011 10/15/2012 Subdural hemorrhage 02/21/2011 03/21/2012 Microscopic hematuria 03/01/2010 03/13/2014 Unspecified disorder of prostate 11/12/2007 03/21/2012 Hypertrophy of prostate with urinary obstruction and other lower urinary tract symptoms (LUTS) 10/18/2007 03/21/2012 Hematuria 04/18/2007 10/15/2012 RECURRENT CELLULITIS 01/22/2007 03/21/2012 DIVERTICULITIS SIGMOID-NO HEMORRHAGE 04/14/2006 03/13/2014 Nontoxic uninodular goiter 12/05/200503/13 Unspecified venous (peripheral) insufficiency 02/27/2017 Edema 12/05/2005 03/21/2012 documented as of this encounter (statuses as of 11/10/2022) [facility] of Past illness Narrative* Problem Noted Date Diagnosed Date Resolved Date Overweight (BMI 25.0-29.9) 03/07/2018 1 06/20/2021 Encounter for colorectal cancer screening 10/20/2017 03/07/2018 Overview: Added automatically from request for surgery [id number] Diverticulosis of large inte whit[place] without hemorrhage 10/20/2017 03/07/2018 Overview: Added automatically from request for surgery [id number] Pruritus 04/30/2013 02/27/2017 Other psoriasis 01/29/2013 02/27/2017 Postinflammatory hyperpigmentation 01/29/2013 02/27/2017 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 Muscular wasting and disuse atrophy, not elsewhere classified 02/21/2011 10/15/2012 Subdural hemorrhage 02/21/2011 03/21/20 12 Microscopic hematuria 03/01/20102013 Unspecified disorder of prostate 11/12/2007 03/21/2012 Hypertrophy of prostate with urinary obstruction and other lower urinary tract symptoms (LUTS) 10/18/2007 03/21/2012 Hematuria 04/18/2007 10/15/2012 RECURRENT CELLULITIS 01/22/2007 012 DIVERTICULITIS SIGMOID-NO HEMORRHAGE 04/14/2006 03/13/2014 Nontoxic uninodular goiter 12/05/2005 1 Unspecified venous (peripheral) insufficiency 12/06/19 06 02/27/2017 Edema 12/05/2005 03/21/2012 documented as of this encounter (statuses as of 04/22/2023) [facility] History of Past illness Narrative* Problem Noted Date Diagnosed Date Resolved Date Overweight (BMI 25.0-29.9) 03/07/2018 1 06/20/2021 Encounter for colorectal cancer screening 10/20/2017 03/07/2018 Overview: Added automatically from request for surgery [id number] Diverticulosis of large inte whit[place] without hemorrhage 10/20/2017 03/07/2018 Overview: Added automatically from request for surgery [id number] Pruritus 04/30/2013 02/27/2017 Other psoriasis 01/29/2013 02/27/2017 Postinflammatory hyperpigmentation 01/29/2013 02/27/2017 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 Muscular wasting and disuse atrophy, not elsewhere classified 02/21/2011 10/15/2012 Subdural hemorrhage 02/21/2011 03/21/20 12 Microscopic hematuria 03/01/20102013 Unspecified disorder of prostate 11/12/2007 03/21/2012 Hypertrophy of prostate with urinary obstruction and other lower urinary tract symptoms (LUTS) 10/18/2007 03/21/2012 Hematuria 04/18/2007 10/15/2012 RECURRENT CELLULITIS 01/22/2007 012 DIVERTICULITIS SIGMOID-NO HEMORRHAGE 04/14/2006 03/13/2014 Nontoxic uninodular goiter 12/05/2005 1 Unspecified venous (peripheral) insufficiency 12/06/19 06 02/27/2017 Edema 12/05/2005 03/21/2012 documented as of this encounter (statuses as of 04/23/2023) [facility] of Past illness Narrative* Problem Noted Date Diagnosed Date Resolved Date Overweight (BMI 25.0-29.9) 03/07/2018 1 06/20/2021 Encounter for colorectal cancer screening 10/20/2017 03/07/2018 Overview: Added automatically from request for surgery [id number] Diverticulosis of large inte whit[place] without hemorrhage 10/20/2017 03/07/2018 Overview: Added automatically from request for surgery [id number] Pruritus 04/30/2013 02/27/2017 Other psoriasis 01/29/2013 02/27/2017 Postinflammatory hyperpigmentation 01/29/2013 02/27/2017 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 Muscular wasting and disuse atrophy, not elsewhere classified 02/21/2011 10/15/2012 Subdural hemorrhage 02/21/2011 03/21/20 12 Microscopic hematuria 03/01/20102013 Unspecified disorder of prostate 11/12/2007 03/21/2012 Hypertrophy of prostate with urinary obstruction and other lower urinary tract symptoms (LUTS) 10/18/2007 03/21/2012 Hematuria 04/18/2007 10/15/2012 RECURRENT CELLULITIS 01/22/2007 012 DIVERTICULITIS SIGMOID-NO HEMORRHAGE 04/14/2006 03/13/2014 Nontoxic uninodular goiter 12/05/2005 1 Unspecified venous (peripheral) insufficiency 12/06/19 06 02/27/2017 Edema 12/05/2005 03/21/2012 documented as of this encounter (statuses as of 04/23/2023) [facility] of Past illness Narrative* Problem Noted Date Diagnosed Date Resolved Date Overweight (BMI 25.0-29.9) 03/07/2018 1 06/20/2021 Encounter for colorectal cancer screening 10/20/2017 03/07/2018 Overview: Added automatically from request for surgery [id number] Diverticulosis of large inte whit[place] without hemorrhage 10/20/2017 03/07/2018 Overview: Added automatically from request for surgery [id number] Pruritus 04/30/2013 02/27/2017 Other psoriasis 01/29/2013 02/27/2017 Postinflammatory hyperpigmentation 01/29/2013 02/27/2017 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 Muscular wasting and disuse atrophy, not elsewhere classified 02/21/2011 10/15/2012 Subdural hemorrhage 02/21/2011 03/21/20 12 Microscopic hematuria 03/01/20102013 Unspecified disorder of prostate 11/12/2007 03/21/2012 Hypertrophy of prostate with urinary obstruction and other lower urinary tract symptoms (LUTS) 10/18/2007 03/21/2012 Hematuria 04/18/2007 10/15/2012 RECURRENT CELLULITIS 01/22/2007 012 DIVERTICULITIS SIGMOID-NO HEMORRHAGE 04/14/2006 03/13/2014 Nontoxic uninodular goiter 12/05/2005 1 Unspecified venous (peripheral) insufficiency 12/06/19 06 02/27/2017 Edema 12/05/2005 03/21/2012 documented as of this encounter (statuses as of 04/23/2023) [facility] of Past illness Narrative* Problem Noted Date Resolved Date Encounter for colorectal cancer screening 201703/07/2018 Overview: Added automatically from request for surgery [id number] Diverticulosis of large intestine without hemorr ronald 10/20/2017 03/07/2018 Overview: Added automatically from request for surgery [id number] Pruritus 04/30/2013 02/27/2017 Other psoriasis 01/29/2013 02/27/2017 Postinflammatory hyperpigmentation 01/29/2013 02/27/2017 Hypertrophic lichen planus 12/12/201202/27 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 02/27/2017 Xerosis cutis 12/12/2012 03/13/2014 Muscular wasting and disuse atrophy, not elsewhere classified 02/21/2011 10/15/2012 Subdural hemorrhage 02/21/2011 03/21/2012 Microscopic hematuria 03/01/2010 03/13/2014 Unspecified disorder of prostate 11/12/2007 03/21/2012 Hypertrophy of prostate with urinary obstruction and other lower urinary tract symptoms (LUTS) 10/18/2007 03/21/2012 Hematuria 04/18/2007 10/15/2012 RECURRENT CELLULITIS 01/22/2007 03/21/2012 DIVERTICULITIS SIGMOID-NO HEMORRHAGE 04/14/2006 03/13/2014 Nontoxic uninodular goiter 12/05/200503/13 Unspecified venous (peripheral) insufficiency 02/27/2017 Edema 12/05/2005 03/21/2012 documented as of this encounter (statuses as of 02/22/2022) [facility] Lonnie Yo [facility] Note Date/Time December 02, 2024 12:[address] [place] [address] System Medical Records Department [address] [place] [address] Emergency Department Summary 12/02/24 MR#: [id number] Acct: [id number] Name: RJ LEUNG Rep #:[id number] : [id number] 84 From: Lonnie Yo DO PCP: Dr. Oskar Leger MD Status:R EG ER Location: ED HPI History of Present Illness Chief Complaint: General Illness Narrative Narrative: Patient is a 84-year-old male with past medical history chronic kidney disease, hypertension, supraventricular tachycardia, YAJAIRA, paroxysmal atrial fibrillation on Eliquis who presented to the emergency department with chief complaint of cough and congestion. Patient states that he has been ill for approximately 3 days now and notes that he went to urgent care yesterday gave him Elsa Pinto this did not help his cough therefore he came here to the emergency department to be evaluated. Patient states that he went to get checked out as he has a large family reunion coming up soon and did not know if he had pneumonia and needed antibiotics. Patient states that he is coughing up sputum production more than his normal self and states that this is yellow-brown in nature. Patient denies chest pain or shortness of breath. [facility] Medical History Chronic kidney disease (CKD) Venous insufficiency of both lower extremities Essential (primary) hypertension Subdural hematoma (2010) Varicose veins of both lower extremities Thrombocytopenia Nontoxic uninodular goiter BPH (benign prostatic hyperplasia) Diverticulitis Benign neoplasm Adrenal adenoma SVT (supraventricular tachycardia) History of subdural hematoma nursing home current use of anticoagulant YAJAIRA (obstructive sleep apnea) Overweight (BMI 25.0-29.9) PAF (paroxysmal atrial fibrillation) Home Medications ?Medication ?Instructions ?Recorded ?Last Taken ?Type multivitamin 1 tab PO QDAY 10/20/1712/01 History cholecalciferol (vitamin D3) 25 1,000 unit PO DAILY 12/02/24 History mcg (1,000 unit) tablet apixaban 5 mg tablet (Eliquis) 5 mg PO BID #180 tabs 0 10/21/24 12/02/24 Rx benzonatate 200 mg capsule 200 mg PO TID PRN cough 12/02/24 History diphenhydramine HCl 25 mg capsule 25 mg PO PRN 5 12/01/24 History (Allergy (diphenhydramine)) doxycycline hyclate 100 mg capsule 100 mg PO BID 5 day s #10 caps 12/02/24 Unknown Rx Allergy/AdvReac Type Severity Reaction Status Date / Time Penicillins Allergy Intermediate Unknown Verified 12/02/24 09:16 iopromide (From Ultravist) Allergy unknown Verified 12/02/24 09:16 levofloxacin (From Levaquin) Allergy Rash Verified 12/02/24 09:16 Family History Father Hypertension Cardiomyopathy Surgical History History of left heart catheterization (11/14/18) History of ear surgery History of tympanoplasty of left ear (01/2014) History of needle biopsy History of tonsillectomy and adenoidectomy Hx of varicose veins Hx of colonoscopy Social History Smoking Status: Never smoker alcohol intake: never substance use type: does not use caffeine: Yes Type: coffee Number of servings: 1 ROS ROS ED ROS Narrative Constitutional: Denies fevers, chills, lightness, dizziness Eyes, ears, nose, throat: Complains of nasal congestion as noted above denies change in vision double vision blurry vision Cardiovascular: Denies chest pain Respiratory: Denies shortness of breath Abdomen: Denies nausea vomit diarrhea : Denies urine symptoms Neurological: Denies numbness, wheeze, tingling Musculoskeletal: Denies back pain Skin: Denies rashes or lesions EXAM Physical Exam Narrative Exam Narrative: General: Patient is lying in bed rest comfortably did not appear to be acute distress Head: Atraumatic, normocephalic Eyes: PERRL bilaterally, EOMI bilateral, no conjunctival injection noted Neck: Soft, supple, trachea midline Cardiovascular: Regular rate and rhythm Respiratory: Clear to auscultation bilaterally Abdomen: Soft, nondistended, no tenderness palpation Extremities: +5/5 strength noted the bilateral upper and lower extremity, radialpulses +2/4 in the bilateral extremities, no pedal edema no exam Neurological: Patient follow commands knew that he was at [facility] Skin: Warm, dry contact no rashes or lesions noted Const Vital Signs: 12/02/24 09:14 12/02/24 09:15 12/02/24 10:13 Temperature 96.5 F L 96.5 F L Temperature Source Oral Oral Pulse Rate 92 92 Respiratory Rate 18 18 Respiratory Effort Normal Non-Labored Respiratory Pattern Normal Blood Pressure 131/73 H 131/73 H Blood Pressure Mean 92 92 Pulse Ox 95 95 Oxygen Delivery Method Room Air Room Air 12/02/24 10:15 12/02/24 11:47 Temperature 99.2 F H Temperature Source Oral Pulse Rate 74 Respiratory Rate 18 Respiratory Effort Respiratory Pattern Blood Pressure 151/53 H Blood Pressure Mean 85 Pulse Ox 96 Oxygen Delivery Method Room Air Room Air MDM MDM MDM Narrative Medical decision making narrative: Patient is a 84-year-old male who presented to the emergency department the chief complaint of cough, congestion and not feeling well. On the differential diagnose includes but not limited to ACS, pneumonia, upper respiratory feck and secondary viral etiology. Once workup is obtained and reviewed he will be reevaluated. Patient's CBC was reviewed showed no evidence leukocytosis white blood count normal at 6.2, hemoglobin 11.2, platelet count was noted be 138, sodium normal 140, potassium normal at 4.5, creatinine was elevated 1.97 he has underlying chronic kidney disease. Patient's chest x-ray reviewed by myself and by radiology showed no acute cardiopulmonary processes. Patient ambulated well here in the emergency department without any evidence Hypoxia or tachycardia. Discussed results with the patient he would like to go home at this point time. He will be given 5-day course doxycycline was advised follow-up his primary carephysician return with worsening symptoms or concerns. He is agreeable this planall question concerns answered he is discharged home in stable condition. Significant other bedside was also agreeable to plan. Lab Data Labs: Laboratory Results - last 24 hr 12/02/24 10:31 WBC 6.2 RBC 3.75 L Hgb 11.2 L Hct 35.4 L MCV 94.4 H MCH 29.9 MCHC 31.6 L RDW Std Deviation 46.4 H RDW Coeff of Jan 13.5 Plt Count 138 L MPV 8.6 Immature Gran % (Auto) 0.500 Neut % (Auto) 72.2 H Lymph % (Auto) 8.9 L Crisp % (Auto) 15.3 H Eos % (Auto) 2.9 Baso % (Auto) 0.2 Absolute Neuts (auto) 4.4 Absolute Lymphs (auto) 0.55 L Nucleated RBC % 0 Sodium 140 Potassium 4.5 Chloride 105 Carbon Dioxide 26.6 Anion Gap 8 BUN 25 H Creatinine 1.97 H Estim Creat Clear Calc 32.45 L Est GFR (MDRD) Non-Af 33 L BUN/Creatinine Ratio 12.8 Glucose 111 H Calcium 9.0 Radiography Diagnostic Testing: Clinical Impression(s) from Imaging Studies Chest X-Ray 12/02/24 11:00 IMPRESSION: Lungs appear clear of acute disease. No pleural effusion or pneumothorax is noted. The cardiomediastinal silhouette is remarkable for a somewhat calcified and tortuous aorta. No evidence of cardiomegaly. Mild thoracic spine degenerative changes are seen, along with DISH. No acute osseous change is evident. Reading Location: [place] [address] Discharge Plan Triage Chief Complaint: General Illness ED Provider: Lonnie Yo Dx/Rx/DC Orders Clinical Impression: Cough, Chronic kidney disease (CKD), Sinusitis Prescriptions: New doxycycline hyclate 100 mg capsule 100 mg PO BID 5 Days Qty: 10 0RF No Action multivitamin tablet 1 tab PO QDAY cholecalciferol (vitamin D3) 1,000 UNIT tablet 1,000 unit PO DAILY benzonatate 200 mg capsule 200 mg PO TID PRN (Reason: cough) diphenhydramine HCl [Allergy (diphenhydramine)] 25 mg capsule 25 mg PO PRN Eliquis 5 mg tablet 5 mg PO BID Qty: 180 3RF Primary Care Provider: Oskar Leger Referrals: Oskar Leger MD [Primary Care Provider] - Activity Restrictions/Additional Instructions: Take antibiotics as prescribed. Follow-up your doctor in outpatient setting. Return with worsening symptoms or any other concerns Print Language: Ukrainian Disposition Disposition: Home, Self Care What to do if you have Problems For any increased pain, shortness of breath, bleeding, nausea or vomiting, chestpain, or any unexpected problems, contact your Primary Care Provider. Call [facility] ([phone]) or report to the closest Emergency Room. Call 911 if necessary. 12/02/24 1251 <Electronically signed by Lonnie Yo DO> Cosigner Signature (if applicable): CC: Dr. Oskar Leger MD ~ Signed [facility] Work Phone: Evaluation note* Diagnosis Medicare annual wellness visit, subsequent- Primary Routine general medical examination at a health care facility Essential hypertension Unspecified essential hypertension Need for influenza vaccination Need for prophylactic vaccination and inoculation against influenza Obesity, Class I, BMI 30-34.9 Obesity, unspecified Paroxysmal atrial fibrillation (HCC) Atrial fibrillation Stage 3a chronic kidney disease (HCC) Thrombocytopenia (HCC) Thrombocytopenia, unspecified YAJAIRA (obstructive sleep apnea) on CPAP Obstructive sleep apnea (adult) (pediatric) [facility] Anemia of chronic kidney failure, stage 3 (moderate) (HCC) [facility] Diagnosis Viral URI with cough- Primary Acute upper respiratory infections of unspecified site Closed displaced fracture of proximal phalanx of lesser toe of left foot, initial encounter Laceration of lesser toe of left foot without foreign body present or damage to nail, initial encounter [facility] Diagnosis Acute pain of left shoulder- Primary [facility] Diagnosis URI, acute- Primary Acute upper respiratory infections of unspecified site Exposure to confirmed case of COVID-19 [facility] Diagnosis Medicare annual wellness visit, subsequent- Primary Routine general medical examination at a health care facility Paroxysmal atrial fibrillation (HCC) Atrial fibrillation Anemia due to stage 3b chronic kidney disease ([facility]) Encounter for immunization Need for other specified prophylactic vaccination against single bacterial disease [facility] Diagnosis Acute cough- Primary Acute cough [facility] Diagnosis Skin tear of right forearm without complication, initial encounter- Primary [facility] Diagnosis Acute cough [facility] Diagnosis Rhinorrhea- Primary Other diseases of nasal cavity and sinuses [facility] Diagnosis Acute pain of left knee [facility] Diagnosis Toe injury, left, initial encounter [facility] Diagnosis Subconjunctival hemorrhage of left eye- Primary [facility] Diagnosis Medicare annual wellness visit, subsequent- Primary Routine general medical examination at a health care facility Need for influenza vaccination Need for prophylactic vaccination and inoculation against influenza Screening for depression Encounter for screening examination for other mental health and behavioral disorders Anemia due to stage 3b chronic kidney disease (HCC) Essential hypertension Unspecified essential hypertension Paroxysmal atrial fibrillation (HCC) Atrial fibrillation [facility] Diagnosis Essential hypertension- Primary Unspecified essential hypertension [facility] Diagnosis Acute non-recurrent sinusitis, unspecified location- Primary [facility] this encounter [facility] noteNo assessment information availableSpecialty [facility] Work Phone: Evaluation note* Diagnosis Viral URI- Primary Acute upper respiratory infections of unspecified site [facility] Additional Instructions Take antibiotics as prescribed. Follow-up your doctor in outpatient setting. Return with worsening symptoms or any other concernsWKettering [facility] Work Phone: Reason for referral (narrative)* Diagnostic Procedure Only (Urgent) - Closed Specialty Diagnoses / Procedures Referred By Contac t Referred To Contact XR IMAGING Diagnoses Acute pain of left knee Procedures XR KNEE GENERAL 4V AP BOTH/PA BOTH/LAT/MERC LEFT RADIOLOGIC EXAM KNEE COMPLETE 4/MORE VIEWS Mónica Saucedo, LAI [address] [place] [address] [place] [address] Referral ID Status Reason Start Date Expiration Date V isits Requested Visits Authorized [id number] Closed Auto-Generate d Referral 06/17/2023 07/16/[address] [facility] ([facility] Diagnostic Procedure Only (Urgent) - Closed Specialty Diagnoses / Procedures Referred By Contac t Referred To Contact XR IMAGING Diagnoses Closed displaced fracture of proximal phalanx of lesser toe of left foot, initial encounter Procedures XR TOE AP/LAT/OBL LEFT RADEX TOE MINIMUM 2 VIEWS Neha Cervantes PA-C [address] [place] [address] [place] [address] Referral ID Status Reason Start Date Expiration Date V isits Requested Visits Authorized [id number] Closed Auto-Generate d Referral 05/10/2022 06/09/[address] [facility] (narrative)No reason for referral information availableSpecialty [facility] Work Phone: Reason for visit Narrative* Diagnostic Procedure Only (Urgent) - Closed Specialty Diagnoses / Procedures Referred By Contac t Referred To Contact XR IMAGING Diagnoses Acute pain of left knee Procedures XR KNEE GENERAL 4V AP BOTH/PA BOTH/LAT/MERC LEFT RADIOLOGIC EXAM KNEE COMPLETE 4/MORE VIEWS Mónica Saucedo APRN.MEDICAL LANGUAGE SPECIALIST [address] [place] [address] [place] [address] Referral ID Status Reason Start Date Expiration Date V isits Requested Visits Authorized [id number] Closed Auto-Generate d Referral 06/17/2023 07/16/[address] [facility] Narrative* Diagnostic Procedure Only (Urgent) - Closed Specialty Diagnoses / Procedures Referred By Contac t Referred To Contact XR IMAGING Diagnoses Closed displaced fracture of proximal phalanx of lesser toe of left foot, initial encounter Procedures XR TOE AP/LAT/OBL LEFT RADEX TOE MINIMUM 2 VIEWS Neha Cervantse PA-C [address] [place] [address] [place] [address] Referral ID Status Reason Start Date Expiration Date V isits Requested Visits Authorized [id number] Closed Auto-Generate d Referral 05/10/2022 06/09/[address] [facility] [address] [facility] Summary Purpose Family History Relationship Condition Age at Onset Recorded Date/T paula father Hypertension Unknown Cardiomyopathy Unknown Advance Directives Documents on File Type Date Recorded Patient Pit Inspector Expl anation Advance Directive(s) 05/23/2024 8:28 AM Advance Directive Response Recorded Date/ Time Advance Directives Yes November 14 7:31am Advance Directive Response Recorded Date/ Time Do you have a Healthcare Power of Transit Coach Operator? No December 02, 2024 10:13am Advance Directives Yes November 14 7:31am Reason for Referral Specialty Diagnoses / Procedures Referred By Contac t Referred To Contact Podiatry Diagnoses Closed displaced fracture of proximal phalanx of lesser toe of left foot, initial encounter Procedures CONSULT TO PODIATRY OFFICE/OUTPATIENT [facility] 60-74 MINUTES Neha Cervantes PA-C [address] [place] [address] Referral ID Status Reason Start Date Expiration Date Visits Requested Visits Authorized [id number] Authorized PCP Requested Referral 05/10/2023 1 1 Specialty Diagnoses / Procedures Referred By Contac t Referred To Contact XR IMAGING Diagnoses Closed displaced fracture of proximal phalanx of lesser toe of left foot, initial encounter Procedures XR TOE AP/LAT/OBL LEFT RADEX TOE MINIMUM 2 VIEWS Neha Cervantes PA-C [address] [place] [address] Xr Imaging Referral ID Status Reason Start Date Expiration Date V isits Requested Visits Authorized [id number] Closed Auto-Generate d Referral 05/10/2022 06/09/2023 1 1 Health Concerns Infection Onset Date Last Indicated Resolved Time COVID-19 Rule-Out 05/10/2022 05/10/2022 Infection Onset Date Last Indicated Resolved Time COVID-19 Rule-Out 04/22/2023 04/22/2023 Infection Onset Date Last Indicated Resolved Time COVID-19 Confirmed 04/22/2023 04/22/2023 Chief Complaint and Reason for Visit Chief Complaint Admit Date Stasis Derm, Swelling in RLE November 08, 2 025 10:40am GENERAL ILLNESS December 02, 2024 9:13 am Reason for Visit Admit Date Bilateral lower extremity edema October 10:40am Chronic stasis dermatitis November 08, 2024 10:40am Venous insufficiency of both lower extre mities November 08, 2024 10:40am Chief Complaint Admit Date Stasis Derm, Swelling in RLE November 08, 2 025 10:40am Reason for Visit Admit Date Bilateral lower extremity edema October 10:40am Chronic stasis dermatitis November 08, 2024 10:40am Venous insufficiency of both lower extre mities November 08, 2024 10:40am Chief Complaint Admit Date Stasis Derm, Swelling in RLE November 08, 2 025 10:40am GENERAL ILLNESS December 02, 2024 9:13 am Additional Source Comments (unrecognized sect ion and content) No Status Records FoundNo Status Records FoundNo Status Records FoundNo Status Records FoundNo Status Records Found INFORMATION SOURCE (unrecogn ized section and content) DATE CREATED AUTHOR 12/06/2017 [facility] DATE CREATED AUTHOR 'S ORGANIZ ATION 04/18/2021 [facility] DATE CREATED AUTHOR AUTHOR'S ORGANIZ ATION 05/24/2024 [facility] DATE CREATED AUTHOR AUTHOR'S ORGANIZ ATION 10/19/2024 [facility] DATE CREATED AUTHOR AUTHOR'S ORGANIZ ATION 11/15/2024 [facility] Source Comments (unrecognize d section and content) In the event this informatio n is protected by the Federal Confidentiality of Alcohol and Drug Abuse Patient Records regulations: The Federal rules restrict any use of the information to criminally investigate or prosecute any alcohol or drug abuse patient.[facility] HospitalIn the event this information is protected by the Federal Confidentiality of Alcohol and Drug Abuse Patient Records regulations: The Federal rules restrict any use of the information to criminally investigate or prosecute any alcohol or drug abuse patient.[facility] [address] HospitalIn the event this information is protected by the Federal Confidentiality of Alcohol and Drug Abuse Patient Records regulations: The Federal rules restrict any use of the information to criminally investigate or prosecute any alcohol or drug abuse patient.[facility] [address] HospitalIn the event this information is protected by the Federal Confidentiality of Alcohol and Drug Abuse Patient Records regulations: The Federal rules restrict any use of the information to criminally investigate or prosecute any alcohol or drug abuse patient.[facility] HospitalIn the event this information is protected by the Federal Confidentiality of Alcohol and Drug Abuse Patient Records regulations: The Federal rules restrict any use of the information to criminally investigate or prosecute any alcohol or drug abuse patient.[facility] HospitalIn the event this information is protected by the Federal Confidentiality of Alcohol and Drug Abuse Patient Records regulations: The Federal rules restrict any use of the information to criminally investigate or prosecute any alcohol or drug abuse patient.[facility] HospitalIn the event this information is protected by the Federal Confidentiality of Alcohol and Drug Abuse Patient Records regulations: The Federal rules restrict any use of the information to criminally investigate or prosecute any alcohol or drug abuse patient.[facility] HospitalIn the event this information is protected by the Federal Confidentiality of Alcohol and Drug Abuse Patient Records regulations: The Federal rules restrict any use of the information to criminally investigate or prosecute any alcohol or drug abuse patient.[facility] HospitalIn the event this information is protected by the Federal Confidentiality of Alcohol and Drug Abuse Patient Records regulations: The Federal rules restrict any use of the information to criminally investigate or prosecute any alcohol or drug abuse patient.[facility] HospitalIn the event this information is protected by the Federal Confidentiality of Alcohol and Drug Abuse Patient Records regulations: The Federal rules restrict any use of the information to criminally investigate or prosecute any alcohol or drug abuse patient.[facility] HospitalIn the event this information is protected by the Federal Confidentiality of Alcohol and Drug Abuse Patient Records regulations: The Federal rules restrict any use of the information to criminally investigate or prosecute any alcohol or drug abuse patient.[facility] HospitalIn the event this information is protected by the Federal Confidentiality of Alcohol and Drug Abuse Patient Records regulations: The Federal rules restrict any use of the information to criminally investigate or prosecute any alcohol or drug abuse patient.[facility] HospitalIn the event this information is protected by the Federal Confidentiality of Alcohol and Drug Abuse Patient Records regulations: The Federal rules restrict any use of the information to criminally investigate or prosecute any alcohol or drug abuse patient.[facility] HospitalIn the event this information is protected by the Federal Confidentiality of Alcohol and Drug Abuse Patient Records regulations: The Federal rules restrict any use of the information to criminally investigate or prosecute any alcohol or drug abuse patient.[facility] HospitalIn the event this information is protected by the Federal Confidentiality of Alcohol and Drug Abuse Patient Records regulations: The Federal rules restrict any use of the information to criminally investigate or prosecute any alcohol or drug abuse patient.[facility] HospitalIn the event this information is protected by the Federal Confidentiality of Alcohol and Drug Abuse Patient Records regulations: The Federal rules restrict any use of the information to criminally investigate or prosecute any alcohol or drug abuse patient.[facility] HospitalIn the event this information is protected by the Federal Confidentiality of Alcohol and Drug Abuse Patient Records regulations: The Federal rules restrict any use of the information to criminally investigate or prosecute any alcohol or drug abuse patient.[facility] HospitalIn the event this information is protected by the Federal Confidentiality of Alcohol and Drug Abuse Patient Records regulations: The Federal rules restrict any use of the information to criminally investigate or prosecute any alcohol or drug abuse patient.[facility] HospitalIn the event this information is protected by the Federal Confidentiality of Alcohol and Drug Abuse Patient Records regulations: The Federal rules restrict any use of the information to criminally investigate or prosecute any alcohol or drug abuse patient.[facility] HospitalIn the event this information is protected by the Federal Confidentiality of Alcohol and Drug Abuse Patient Records regulations: The Federal rules restrict any use of the information to criminally investigate or prosecute any alcohol or drug abuse patient.[facility] HospitalIn the event this information is protected by the Federal Confidentiality of Alcohol and Drug Abuse Patient Records regulations: The Federal rules restrict any use of the information to criminally investigate or prosecute any alcohol or drug abuse patient.[facility] HospitalIn the event this information is protected by the Federal Confidentiality of Alcohol and Drug Abuse Patient Records regulations: The Federal rules restrict any use of the information to criminally investigate or prosecute any alcohol or drug abuse patient.[facility] HospitalIn the event this information is protected by the Federal Confidentiality of Alcohol and Drug Abuse Patient Records regulations: The Federal rules restrict any use of the information to criminally investigate or prosecute any alcohol or drug abuse patient.[facility] Reason for Visit (unrecogniz ed section and content) Reason Onset Date Comments Population Health Navigation Outreach 02/22/2022 [employer] Gaps Reason Onset Date Comments Medicare Wellness Exam Immunizations 04/20/2022 Flu vaccination Reason Comments Results Reason Comments Pain, Throat Lilly pain rated 2, dani al congestion, cough, x1 day. Reason Comments left shoulder pain X 3 days-cannot reca ll an injury Reason Comments Head Congestion chills, bodyaches x 1 day, + covid Reason Comments Results Orders Reason Comments Orders Reason Comments Medicare Wellness Exam Reason Comments Cough Head congestion, sne ezing, drainage x 4 days Reason Comments Trauma Right forearm, had f all x 3 days and fell into wood and received x 5 lacerations Reason Comments Nasal Congestion Runny nose, sinus co ngestion x6 days Reason Comments Eye Problem left eye blood fille d x 1 day Reason Onset Date Comments Medicare Wellness Exam Immunizations 05/20/2024 Flu vaccination Reason Onset Date Comments ACM JOELLEN RN 05/23/2024 ED Utilizatio n review per request of payer Reason Comments Recheck ER follow up, HTN Reason Comments Sinus Problem With congestion and cough x 2 week, took Covid test 1 week ago, negative Reason Comments Head Congestion drainage, cough and sore throat x last night Care Teams (unrecognized sec tion and content) Team Status: Active Member Role Status Dates Dr. Oskar Leger MD Primary Care Provider Active Team Status: Inactive Member Role Status Dates Dr. Oskar Leger MD Primary Care Provider Active Start: November 06, 2024 End: November 06, 2024 Dr. Keshia Campbell DO Attending Provider Active Start: November 06, 2024 End: November 06, 2024 Dr. Keshia Campbell DO Referring Provider Active Start: November 06, 2024 End: November 06, 2024 Team Status: Inactive Member Role Status Dates Dr. Oskar Leger MD Primary Care Provider Active Start: November 08, 2024 End: November 08, 2024 PHUONG Waggoner Attending Provider Active Star t: November 08, 2024 End: November 08, 2024 Dr. Sameer Prado MD Referring Provider Active S tart: November 08, 2024 End: November 08, 2024 Ict Sales Assistant Relationship Specialty Start Date End Date Oskar Leger MD [address] [place] [address] PCP - General Internal Medicine 04/10/12 Ict Sales Assistant Relationship Specialty Start Date End Date Oskar Leger MD [address] [place] [address] PCP - General Internal Medicine 04/10/12 Ict Sales Assistant Relationship Specialty Start Date End Date Oskar Leger MD [address] [place] [address] PCP - General Internal Medicine 04/10/12 Ict Sales Assistant Relationship Specialty Start Date End Date Oskar Leger MD [address] [place] [address] PCP - General Internal Medicine 04/10/12 Ict Sales Assistant Relationship Specialty Start Date End Date Oskar Leger MD [address] [place] [address] PCP - General Internal Medicine 04/10/12 Ict Sales Assistant Relationship Specialty Start Date End Date Oskar Leger MD [address] [place] [address] PCP - General Internal Medicine 04/10/12 Ict Sales Assistant Relationship Specialty Start Date End Date Oskar Leger MD [address] [place] [address] PCP - General Internal Medicine 04/10/12 Ict Sales Assistant Relationship Specialty Start Date End Date Oskar Leger MD [address] [place] [address] PCP - General Internal Medicine 04/10/12 Ict Sales Assistant Relationship Specialty Start Date End Date Oskar Leger MD [address] [place] [address] PCP - General Internal Medicine 04/10/12 Ict Sales Assistant Relationship Specialty Start Date End Date Oskar Leger MD [address] [place] [address] PCP - General Internal Medicine 04/10/12 Ict Sales Assistant Relationship Specialty Start Date End Date Oskar Leger MD [address] [place] [address] PCP - General Internal Medicine 04/10/12 Ict Sales Assistant Relationship Specialty Start Date End Date Oskar Leger MD [address] [place] [address] PCP - General Internal Medicine 04/10/12 Ict Sales Assistant Relationship Specialty Start Date End Date Oskar Leger MD [address] [place] [address] PCP - General Internal Medicine 04/10/12 Bina Rondon, RN SPINE.MEDICAL LANGUAGE SPECIALIST [address] [place] [address] [employer] [facility] 05/20/24 Ict Sales Assistant Relationship Specialty Start Date End Date Oskar Leger MD [address] [place] [address] PCP - General Internal Medicine 04/10/12 Bina Rondon, RN SPINE.MEDICAL LANGUAGE SPECIALIST [address] [facility] [place], [place] [id number] [employer] Internal Medicine 05/20/24 Ict Sales Assistant Relationship Specialty Start Date End Date Oskar Leger MD [address] [facility] [place], [place] [address] PCP - General Internal Medicine 04/10/12 Bina Rondon, RN SPINE.MEDICAL LANGUAGE SPECIALIST [address] [facility] [place], [place] [address] [facility] Internal Medicine 05/20/24 Team Status: Active Member Role Status Dates Dr. Oskar Leger MD Primary Care Provider Active Start: November 06, 2024 Dr. Keshia Campbell DO Attending Provider Active Start: November 06, 2024 Dr. Keshia Campbell DO Referring Provider Active Start: November 06, 2024 Ict Sales Assistant Relationship Specialty Start Date End Date Oskar Leger MD [address] [facility] [place], [place] [address] PCP - General Internal Medicine 04/10/12 Bnia Rondon, RN SPINE.MEDICAL LANGUAGE SPECIALIST [address] [facility] [place], [place] [id number] [facility] Internal Medicine 05/20/24 Team Status: Inactive Member Role Status Dates Dr. Oskar Leger MD Primary Care Provider Active Start: December 02, 2024 End: December 02, 2024 Dr. Lonnei Yo DO Emergency Provider Active Start: December 02, 2024 End: December 02, 2024 Goals (unrecognized section and content) Goals may be documented in a n alternate sectionGoals may be documented in an alternate sectionGoals may be documented in an alternate section FOR RECORDS PERTAINING TO PATIENTS WHO ARE OR HAVE BEEN ENROLLED IN A CHEMICAL DEPENDENCY/SUBSTANCEABUSE PROGRAM, SOME INFORMATION MAY BE OMITTED. This clinical summary was aggregated from multiple sources. Caution should be exercised in using it in the provision of clinical care. This summary normalizes information from multiple sources, and as a consequence, information in this document may materially change the coding, format and clinical context of patient data. In addition, data may be omitted in some cases. CLINICAL DECISIONS SHOULD BE BASED ON THE PRIMARY CLINICAL RECORDS. [facility]. provides no warranty or guarantee of the accuracy or completeness of information in this document.
== END 2024-12-02 13:02 | disposition home or self-care (01) ==
PROVIDERS: Emergency Provider Emergency Medicine; PCP Internal Medicine; Visit Provider Emergency Medicine
DX: R05.9 Cough, unspecified (principal); I48.0 Paroxysmal atrial fibrillation; N18.9 Chronic kidney disease, unspecified; I12.9 Hypertensive chronic kidney disease with stage 1 through stage 4 chronic kidney disease, or unspecified chronic kidney disease; Z79.01 Long term (current) use of anticoagulants; J32.9 Chronic sinusitis, unspecified
CPT/HCPCS: 71046; 80048; 85025; 93005; 99284; A4216

== ENCOUNTER → 2025-01-14 | Outpatient (CLI) | payer MEDICARE, SELFPAY ==
[2025-01-14 12:05] LABS: Cholesterol 148 mg/dL (<=200); Low Density Lipoprotein Calc. 66 mg/dL; Triglycerides 92 mg/dL; Very Low Density Lipoprotein 18 mg/dL (5-40); cholesterol:hdl ratio screen 2.32
== END | disposition home or self-care (01) ==
LOC: LAB 10:56
PROVIDERS: PCP Internal Medicine; Referring Provider Student in an Organized Health Care Education/Training Program; Visit Provider Student in an Organized Health Care Education/Training Program
DX: I10 Essential (primary) hypertension (principal)
CPT/HCPCS: 36415; 80061

== ENCOUNTER → 2025-03-03 | Outpatient (CLI) | payer MEDICARE, SELFPAY ==
--- NOTE | 2025-03-03 07:52 | VDLE_ITS ---
Reason For Study Reason For Study: Swelling BLE RIGHT LEFT CFV is compressible, phasic, and INCOMPETENT for CFV is compressible, spontaneous, phasic, competent, greater than 1.0 second. and demonstrates normal augmentation. FV is compressible, spontaneous, phasic, competent and FV is compressible, spontaneous, phasic, competent demonstrates normal augmentation. and demonstrates normal augmentation. POP V is compressible, phasic, and INCOMPETENT for POP V is compressible, phasic, and INCOMPETENT for greater than 1.0 second. greater than 1.0 second. T/P Trunk is compressible. T/P Trunk is compressible. PTV is compressible. PTV is compressible. RT PerV is compressible. LT PerV is compressible. SFJ is INCOMPETENT and measures 0.76 cm. SSV mid calf is competent and measures 0.20cm x 0.27 Rt SSV prox to mid calf has thickened vein martinez with cm. bright intraluminal echoes consistent with chronic SVT Lt SSV prox to mid calf has thickened vein martinez with Rt SSV distal is INCOMPETENT and measures 0.28cm x bright intraluminal echoes consistent with chronic 0.26cm SVT Rt GSV not visualized/occluded s/p gluing/stripping Lt GSV is very small and has thickened vein martinez and Varicosities in the Rt calf are small and non is non compressible in some areas compressible. INCOMPETENT Lt calf Perf 10cm from MM. ASV proximal thigh is INCOMPETENT for greater than 0.5 SFJ is competent and measures 0.40cm x 0.36 cm. seconds and measures 1.11cm x 1.18 cm. GSV proximal thigh measures 0.17cm x 0.16 cm. ASV mid thigh is INCOMPETENT for greater than 0.5 GSV at knee measures 0.33cm x 0.42 cm. seconds and measures 0.53cm x 0.53 cm. GSV above knee is competent. ASV distal calf is INCOMPETENT for greater than 0.5 GSV below knee is INCOMPETENT for greater than 0.5 seconds and measures 0.44cm x 0.60 cm. seconds. Procedure ASV distal calf is INCOMPETENT for greater than 0.5 Exam performed in department. seconds and measures 0.29cm x 0.43 cm. This is a venous duplex using B-mode, color flow and spectral Doppler. Patient was scanned in reverse Trendelenburg position during reflux assessment. A preliminary report was called and/or faxed to [facility]. VL/Venous Duplex US - Qamar Extrem Interpretation Summary Deep veins of the bilateral lower extremity are patent and compressible segment ally. There is no evidence of bilateral lower extremity deep vein thrombosis. 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 Chronic superficial vein thrombosis noted in right small saphenous vein. Positive for reflux in the right common femoral vein, popliteal vein, saphenofe moral junction, small saphenous vein, accessory saphenous vein in proximal thigh/mid thigh/distal calf. Positive for reflux in the left popliteal vein, great saphenous vein below the knee, accessory saphenous vein in the calf, double end sewer vein in calf. Ordering Physician: Sera Cid Referring Physician: Oskar Leger Performed By: Rosi Whitlock, ARELYCS, RVT
== END | disposition home or self-care (01) ==
PROVIDERS: PCP Internal Medicine; Referring Provider Physician Assistant; Visit Provider Physician Assistant
DX: I87.2 Venous insufficiency (chronic) (peripheral) (principal); M79.89 Other specified soft tissue disorders
CPT/HCPCS: 93970